=== PATIENT | female | born 1945 | race Caucasian/White ===

== ENCOUNTER → 2017-05-30 13:00 | Outpatient (CLI) | payer MEDICARE, SELFPAY ==
--- NOTE | 2017-05-30 13:03 | RAD_ITS ---
STUDY: X-RAY - RIGHT SHOULDER REASON FOR EXAM: Female, 71 years old. Postop check TECHNIQUE: 3 view(s) of the shoulder. COMPARISON: 01/17/2017. FINDINGS: Stable appearance of a right shoulder arthroplasty. No dislocation. No complication. No evidence for loosening. RAD/Shoulder min 2 Views IMPRESSION: Continued satisfactory appearance of a right shoulder arthroplasty. Electronically Signed: Jordin Case MD at 0:01 EST , Service support ,
== END ==
PROVIDERS: Family Provider Internal Medicine; PCP Internal Medicine; Visit Provider Orthopaedic Surgery
DX: M25.511 Pain in right shoulder (principal); Z96.611 Presence of right artificial shoulder joint
CPT/HCPCS: 73030

== ENCOUNTER 2020-06-02 06:18 | Outpatient (RCR) | payer MEDICARE, SELFPAY ==
[2016-12-07 11:25] VITALS: BMI 32.3
== END 2020-06-02 23:59 ==
LOC: IMMUN 06:18
PROVIDERS: PCP Internal Medicine; Visit Provider Family Medicine
DX: Z23 Encounter for immunization (principal)
CPT/HCPCS: 0011A; 0012A

== ENCOUNTER → 2024-04-23 | Outpatient (CLI) | payer MEDICARE, SELFPAY ==
--- NOTE | 2024-04-23 07:30 | MRI_ITS ---
STUDY: MRI LEFT SHOULDER REASON FOR EXAM: Female, 78 years old. Surgical planning, eval rotator cuff. TECHNIQUE: Standardized fat and water weighted pulse sequences were obtained in all 3 orthogonal planes. COMPARISON: Left shoulder CT dated 04/23/2024. FINDINGS: There is supraspinatus, infraspinatus, and subscapularis tendinosis without a full-thickness tear. Normal teres minor tendon. Normal supraspinatus muscle. Normal infraspinatus muscle. Normal subscapularis muscle. There is an ovoid intramuscular lipoma in the teres minor muscle, overall measuring 1.5 cm AP, 4.0 cm transverse, and 1.6 cm craniocaudad. There is severe glenohumeral arthrosis with joint space narrowing, marginal osteophyte formation, remodeling of the articular surfaces, and high-grade chondromalacia. There is overall degeneration of the glenoid labrum with tearing of the posterior-inferior glenoid labrum (axial PD series 2 images 15-18). There is a large glenohumeral joint effusion. Intact humeral head and visualized proximal humerus. Intact biceps labral complex. Normal intracapsular long biceps tendon. Normal rotator interval. There is hypertrophic acromioclavicular arthrosis, with inferior osteophyte formation, with mild effacement of the supraspinatus myotendinous junction (coronal PD series 7 images 16-17). There is a Type I morphology (flat undersurface), with a neutral orientation. There is very trace subacromial-subdeltoid bursal fluid. Normal visualized coracohumeral and coracoacromial ligaments. Normal quadrilateral space. Normal axillary space. Normal deltoid muscle. Normal trapezius muscle. MRI/Upper Ext Joint Only(Routine) IMPRESSION: Supraspinatus, infraspinatus, and subscapularis tendinosis without a full-thickness rotator cuff tear. 1.5 x 4.0 x 1.6 cm intramuscular lipoma in the teres minor muscle. Severe glenohumeral arthrosis with large glenohumeral joint effusion. Overall degeneration of the glenoid labrum with tearing of the posterior-inferior glenoid labrum. Hypertrophic acromioclavicular arthrosis, with inferior osteophyte formation, with mild effacement of the supraspinatus myotendinous junction. Electronically Signed: Kolby Larois MD at 8:08 EST ,
--- NOTE | 2024-04-23 07:38 | CT_ITS ---
EXAM: CT LEFT UPPER EXTREMITY WITHOUT INTRAVENOUS CONTRAST, SHOULDER CLINICAL INDICATION: blueprint cuts for RTSA surgical planning, left shoulder TECHNIQUE: Helically acquired images were obtained of the left shoulder without intravenous contrast. 2-D reformats were performed by the technologist. CTDIvol = ( 22.91 ) mGy, DLP = ( 575.17 ) mGycm This CT exam was performed using one or more of the following dose reduction techniques: automated exposure control, adjustment of the mA and/or kV according to patient size, and/or use of iterative reconstruction technique. COMPARISON: No relevant prior studies available. FINDINGS: BONES/JOINTS: Larger glenohumeral joint effusion. Moderate to severe osteoarthritic changes with joint enlarged humeral head osteophyte projecting inferiorly. Mild to moderate degenerative changes of the acromioclavicular joint. No acute or healing fracture or malalignment. No suspicious lytic or sclerotic lesions of bone. SOFT TISSUES: Unremarkable. No soft tissue swelling or gas. No radiopaque foreign body. No other soft tissue masses. LUNG APICES: Visualized lungs clear. CT/Extremity Upper without Contra IMPRESSION: Preoperative planning study for shoulder arthroplasty showing moderate to severe osteoarthritic changes of the glenohumeral joint. Electronically Signed: Pawan Flannery MD at 12:15 EST ,
== END | disposition home or self-care (01) ==
PROVIDERS: PCP Internal Medicine; Referring Provider Orthopaedic Surgery Sports Medicine; Visit Provider Orthopaedic Surgery Sports Medicine
DX: M19.012 Primary osteoarthritis, left shoulder (principal); M25.512 Pain in left shoulder
CPT/HCPCS: 73200; 73221

== ENCOUNTER 2024-08-21 12:30 | Outpatient (RCR) | payer MEDICARE, SELFPAY ==
--- NOTE | 2024-07-20 11:19 | HP.PTEVAL ---
Patient's Visit Information Visit Information Visit Information: MAYRA BROWN is a 78 year old F referred to Physical Therapy by Dr. Delano Duong MD with a diagnosis of PRIMARY OSTEOARTHRITIS ,LEFT SHOULDER. Date of Evaluation: 07/20/24 Physical Therapist: Bassam Madrigal PT, Cert MDT, OCS Visit Plan Frequency: 2x /Week Duration: 6 Weeks Plan: PATIENT PLANNING TO HAVE LEFT TSR Subjective Subjective: This 78 y/o female presents to physical with right OA. Patient has had left shoulder pain for~ [address] Duong did x-rays Degenerative arthrosis of the glenohumeral joint ,MRI no RTC tear. See DR Duong recommended TSR. But needs PT prior to surgery. Patient global and lateral deltoid. Described sharp pain ache. Aggravating factors OH above 90 degrees ,unable lifting and affects housework tasks and self hygiene. Alleviating factors rest over counter medication.Denies paresthesia/tingling. Pain affects sleeping. Patient pain affects QOL ,self hygiene. Patient goals TSR SOCIAL: Social VOCATION: retired Pain Left Shoulder: Pain Intensity (Out of 10): 5 Pain Intensity Range: 10 Objective Objective: POSTURE: mild forward posture PALPATION: tender AC AROM: shoulder flexion 85 degrees ,80 degrees with substitution ,IR L1 ,40 degrees PROM: shoulder flexion 145 degrees ,140 degrees abduction ,ER 40 degrees G-H MOBILITY: Mod tight MMT: ( peak force) infraspinatus 9.1 ,supraspinatus 7.8 ,subscapularis 10.2 Special Tests R Shoulder Drop Sign - IS Test: Positive R Shoulder Empty Can - SS: Positive R Shoulder Neer - Impingement: Positive R Shoulder Sharp Oswald - Impingement: Positive R Shoulder Shrug Sign - OA/Adhesive Capsulitis: Positive Balance/Special Test Scores Quick DASH Score: 65.9075 Goals Goal 1:: Patient to be Mod I HEP for shoulder Goal Time Frame: 4-6 Weeks Goal 2:: Patient to improve AROM shoulder flexion /abduction and ER by 5-10 degrees for ADLS and self hygiene Goal Time Frame: 4-6 Weeks Goal 3:: Patient to improve peak force RTC /deltoid by 5 # to improve function Goal Time Frame: 4-6 Weeks Goal 4:: Patient to improve quick oswestry score by 5 points to improve QOL Goal Time Frame: 4-6 Weeks Goal 5:: Patient to demonstrate 40% improvement with less pain and improved function Goal Time Frame: 4-6 Weeks Rehabilitation Potential Physical Therapy Diagnosis: This patient has DJD left shoulder with pain ,decrease ROM ,pain ,weakness and needs TSR thus will need PT prior to surgery thus benefit from skilled PT Rehabilitation Potential: Fair Anticipated Interventions Patient/Client Instruction: Educate patient on: Condition and Plan of Care For the Purpose of:: To decrease pain, To increase ROM, To improve muscle performance and motor function, To improve ability to perform ADL's, To increase tolerance to activity/condition/position, To improve ability of physical actions for home/community/work/leisure, To decrease soft tissue restriction, To increase flexibility/ROM and To improve tolerance to ADL's Therapeutic Exercise to Include: Strength training, Postural training, Flexibilty training, Passive ROM, Active ROM and Scapular Strength/Stabilization Comment: RTC For the Purpose of:: To decrease pain, To increase ROM, To improve nutrient delivery to tissue, To increase oxygenation perfusion, To increase tolerance to activity/condition/position, To improve ability of physical actions for home/community/work/leisure, To improve health of tissue, To decrease soft tissue restriction, To increase flexibility/ROM, To reduce risk of recurrence, To improve health and function and To improve tolerance to ADL's Manual Therapy Techniques to Include: Mobilization and Passive ROM Comment: G-H For the Purpose of:: To decrease pain, To increase ROM, To improve health of tissue and To decrease soft tissue restriction TENS: Yes IF ES: Yes Cryotherapy (ice pack, ice massage): Yes Thermo therapy (hot pack): Yes Ultrasound (thermal/non thermal): Yes For the Purpose of:: To decrease pain, To increase ROM, To improve nutrient delivery to tissue, To increase oxygenation perfusion, To improve health of tissue and To decrease soft tissue restriction Text: Thank you for the opportunity to evaluate your patient. For Medicare and Medicare HMO plans, please review the plan of care and approve it. It will need to be FAXED BACK to us at [phone] for Medicare purposes. For Medicare only, by signing this I certify the plan of care. Please let me know if there are questions or concerns regarding this plan of care. Physician Signature: Date:
--- NOTE | 2024-08-21 13:34 | HP.PTDCSUM ---
Discharge Summary D/C summary: It has been my pleasure to treat MAYRA BROWN referred by Dr. Delano Duong MD, with the diagnosis of PRIMARY OSTEOARTHRITIS ,LEFT SHOULDER for a total of 9 visit(s). Discharge Date: Please see the following information for a summary of their discharge status. Subjective Subjective: Pain is same plan to see hopes to shoulder replacement Need to schedule appointment Pain Left Shoulder: Pain Intensity (Out of 10): 5 Overall Improvement % Improvement: 10 Objective Objective/Function: POSTURE: mild forward posture PALPATION: tender AC AROM: shoulder flexion 90 degrees ,75 degrees with substitution ,IR L3 , ER 40 degrees PROM: shoulder flexion 145 degrees ,140 degrees abduction ,ER 40 degrees G-H ACCESSORY : Mod tight MMT: ( peak force) infraspinatus 8.5 ,supraspinatus 7.2 ,subscapularis 10.1 Goals Goal 1:: Patient to be Mod I HEP for shoulder Goal 2:: Patient to improve AROM shoulder flexion /abduction and ER by 5-10 degrees for ADLS and self hygiene Goal 3:: Patient to improve peak force RTC /deltoid by 5 # to improve function Goal 4:: Patient to improve quick oswestry score by 5 points to improve QOL Goal 5:: Patient to demonstrate 40% improvement with less pain and improved function Plan Plan: D/C to DR Discuss options with surgery for shoulder replacement D/C Information d/c sentence: If there are questions or concerns regarding this patient's physical therapy, please feel free to call me at [phone]. Thank you for the referral of this patient. Sincerely, Bassam Madrigal, PT, Cert MDT, OCS Balance/Gait/Functional tests Balance/Special Test Scores Quick DASH Score: 43.1800 Improvement % Improvement: 10
== END 2024-08-21 19:00 | disposition home or self-care (01) ==
LOC: PT 12:30
PROVIDERS: PCP Internal Medicine; Referring Provider Orthopaedic Surgery Sports Medicine; Visit Provider Orthopaedic Surgery Sports Medicine
DX: M19.012 Primary osteoarthritis, left shoulder (principal); M25.512 Pain in left shoulder
CPT/HCPCS: 97110; 97140; 97162; 97530

== ENCOUNTER 2024-12-19 05:34 | Day surgery (SDC) | payer MEDICARE, SELFPAY ==
--- NOTE | 2024-12-06 10:37 | EKG12_ITS ---
Test Reason : PREOP Blood Pressure : */* mmHG Vent. Rate : 69 BPM Atrial Rate : 69 BPM P-R Int : 152 ms QRS Dur : 64 ms QT Int : 382 ms P-R-T Axes : 35 72 78 degrees QTcB Int : 409 ms Normal sinus rhythm Low voltage QRS Borderline ECG Confirmed by Leonel Torres ([id number]), communications editor JOSE POP ([id number]) on 12/07/2024 6:47:03 AM Referred By: Delano Duong Confirmed By: Leonel Torres
[2024-12-06 11:17] LABS: Hematocrit 42.6 % (37-47); Hemoglobin 14.2 g/dL (12.0-15.0); Immature Granulocytes Count 0.030 X10^3/uL (0.0-0.0); Mean Corp Hgb Conc 33.3 g/dL (32-36); Mean Corpuscular Volume 91.6 fL (81-99); Mean Platelet Vol. 9.1 fl (6.2-12.0); NRBC Flagged by Analyzer 0 % (0-5); Platelet Count 432 K/mm3 (150-450); RBC Distribution Width CV 14.9 % (11.6-14.6); RBC Distribution Width SD 50.2 fl (35.1-43.9); Red Blood Count 4.65 M/mm3 (4.2-5.4); White Blood Count 8.2 K/mm3 (4.4-11.0)
[2024-12-06 11:25] LABS: Prothrombin Time (Protime)PT. 12.9 SECONDS (11.7-14.9)
[2024-12-06 11:26] LABS: Partial Thromboplast Time 28.0 Seconds (24.1-36.2)
[2024-12-06 11:47] LABS: Magnesium 2.5 mg/dL (1.5-2.2)
[2024-12-06 11:51] LABS: Anion Gap 11 (5-15); BUN 13 mg/dL (4-19); BUN/Creat Ratio 19.3 RATIO (10-20); Calcium,Total 9.9 mg/dL (7.6-11.0); Carbon Dioxide 24.1 mmol/L (21.0-32.0); Chloride 106 mmol/L (98-108); Glucose 94 mg/dL (70-99); Potassium 4.5 mmol/L (3.3-5.1)
--- NOTE | 2024-12-07 08:41 | PAT.ANE_ITS ---
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 When Was Last Pacemaker Check QUESTION #4 FULL TEXT: You/Your Family Experience fever (hyperthermia) with Anesthesia Last Oral Intake Last Oral intake: Last Oral Intake NPO since Meds taken in AM with sips of water? 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 Female Yes 12/05/24 10:05 HX of Motion Sickness No 12/05/24 10:05 HX of N/V After Surgery No 12/05/24 10:05 Non-Smoker Yes 12/05/24 10:05 Duration of Surgery greater Yes 12/05/24 10:05 than 60 minutes Number of Risk Factors 3 12/05/24 10:05 PONV Score Moderate Risk 12/05/24 10:05 Height & Weight Height & Weight: Anesthesia: Height & Weight Height 5 ft 1 in 09/05/24 09:04 Respiratory Assessment Respiratory Assessment - marine fuel dock attendant: Respiratory Tract Infection Hx - 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 Has anyone observed you stop No 12/05/24 10:05 breathing during sleep? STOP Results Negative 12/05/24 10:05 QUESTION #5 FULL TEXT : Do you snore loudly (louder than talking or can be heard through closed doors)? 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 Specify any problems Hx of Preganancy in last 3 No 12/05/24 10:05 Months Nurse Filling Out Transfusion DSCHRIBER 12/05/24 10:05 & Questions: Date: 12/05/24 12/05/24 10:05 Time: 10:07 12/05/24 10:05 Patient unable to answer at this time (ie. confused, unrespo /Reproduction History /Reproductive History - marine fuel dock attendant: /Reproductive Hx- marine fuel dock attendant Hx Now No 12/05/24 10:05 Gestational Age (in weeks): EDC: Hx Hx Para Hx Section SAB No 12/05/24 10:05 [facility] Medical History (Updated 12/05/24 @ 10:12 by Kristen Jeffries) Alcohol use Back pain Hx of fracture of wrist Wears glasses Anxiety Arthritis High cholesterol Gastric reflux Hypertension Non-smoker Primary osteoarthritis, left shoulder Left shoulder pain Home Medications ?Medication ?Instructions ?Recorded ?Last Taken ?Type biotin 10,000 mcg capsule 10,000 mcg PO DAILY 12/02/16 Unknown History calcium 600 mg (as 1 ea PO DAILY 12/02/16 Unkno wn History carbonate)-vitamin D3 5 mcg (200 unit) tablet amlodipine 5 mg tablet 5 mg PO QHS 05/06/23 Unknown History denosumab 60 mg/mL subcutaneous 60 mg subcut [id number] 05/06/23 Unknown History syringe (Prolia) folic acid 400 mcg tablet 800 mcg PO DAILY 05/06/23 Un known History rosuvastatin 10 mg tablet 10 mg PO [id number] 05/06/23 Unk nown History Allergy/AdvReac Type Severity Reaction Status Date / Time Sulfa (Sulfonamide Allergy Unknown Verified 12/05/24 10:01 Antibiotics) Surgical History (Updated 12/05/24 @ 10:12 by Kristen Jeffries) Hx of oral surgery Hx of left cataract extraction History of History of colonoscopy History of total replacement of right shoulder joint (~2016) Social History Smoking Status: Never smoker Audit: Pertinent Findings Pertinent Findings EKG Perinent findings: 12/06/2024. Normal sinus rhythm. Recommendation Anesthesia Recommendation Anesthesia recommendation: OPTIMIZED for anesthesia
[2024-12-19] VITALS (10 sets, daily range): BP systolic 113–156; BP diastolic 62–74; PULSE 64–80; RESP 16; TEMP 35.9–36.6; O2SAT 93–98; BMI 30.8
--- OUTSIDE RECORDS SUMMARY | 2024-12-19 05:36 | XMS RPT_ITS | CCD ---
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 Atkins Primary Care Provider Delano Duong MD Attending Provider Delano Duong MD Referring Provider Phil SLOAN, Dr. Atkins Referring Provider PHIL, WILBERT Vuong Primary Care Unavailable VILLARREAL, EDUARD Attending Unavailable VILLARREAL, EDUARD Primary Care Unavailable VILLARREAL, EDUARD Primary Care Unavailable VILLARREAL, WILBERT Vuong Referring Unavailable VILLARREAL, EDUARD Primary Care Unavailable VILLARREAL, EDUARD Referring Unavailable VILLARREAL, EDUARD Primary Care Unavailable VILLARREAL, EDUARD Referring Unavailable VILLARREAL, EDUARD Primary Care Unavailable JASMYN MCGUIRE Attending Unavailable PHIL, WILBERT Vuong Primary Care Unavailable Villarreal, Wilbert Primary Care Unavailable MollisonDelano Attending Unavailable DawitisonDelano Referring Unavailable Villarreal, Wilbert Primary Care Unavailable VillarrealWilbert Referring Unavailable Mollison, Delano Attending Unavailable Rhoda, Delano Referring Unavailable Molllito, Delano Attending Unavailable Phil, Wilbert Primary Care Unavailable Molllito, Delano Referring Unavailable Mollison, Delano Attending Unavailable Villarreal, Wilbert Primary Care Unavailable Villarreal, Wilbert Primary Care Unavailable Wesley Barrientos Attending Unavailabl e Delano Duong Referring Unavailable Villarreal, Wilbert Primary Care Unavailable Molllito, Delano Attending Unavailable VillarrealWilbert basilio Referring Unavailable Mollison, Delano Attending Unavailable Wilbert Villarreal Primary Care Unavailable Wilbert Villarreal Referring Unavailable Wilbert Villarreal Primary Care Unavailable Delano Duong Attending Unavailable Delano Duong Referring Unavailable Delano Duong Attending Unavailable Wilbert Villarreal Primary Care Unavailable Delano Duong Referring Unavailable Allergies Allergy Classification Reported Allergen(s) Allergy Type Date of Onset Reaction(s) Facility Alendronate (1 source) Alendronate Drug Allergy 9 GI Upset, Other: See Comments [facility] Work Phone: HMG-CoA Reductase Inhibitors (statins) (1 source) atorvastatin Drug Allergy 8 Diarrhea, GI Upset, Vomiting [facility] Sulfonamides (antibiotic) (1 source) Sulfonamides (Antibiotic) Drug Allergy 6 Unknown [facility] (20 sources) Alendronate; Translations: [ALENDRONATE SODIUM] Drug Allergy 9 GI Upset, Other: See Comments [facility] Work Phone: (20 sources) atorvastatin; Translations: [ATORVASTATIN CALCIUM] Drug Allergy 8 Diarrhea, GI Upset, Vomiting [facility] Work Phone: (20 sources) Sulfonamides (Antibiotic); Translations: [SULFA (SULFONAMIDE ANTIBIOTICS)] Propensity to adverse reactions 6 Unknown [facility] Work Phone: (3 sources) Sulfonamides (Antibiotic) Allergy to substance [address] [facility] (1 source) Sulfonamides (Antibiotic) Drug allergy (disorder) 5 [facility] Repository Medications Current Medications Medication Drug Class(es) Dates Sig (Normalized) Sig (Original) amLODIPine 5 mg oral tablet (20 sources) Dihydropyridine Calcium Channel Idgna Start: 07-27-2024 take 1 tablet by mouth once daily amLODIPine (NORVASC) 5 mg tablet Indications: Primary hypertension Take 1 tablet by mouth once daily. 90 tablet 3 07/27/2024 Active Start: 06-09-2021 End: 07-26-2023 take 1 tablet by mouth once daily amLODIPine (NORVASC) 5 mg tablet Indications: Primary hypertension Take 1 tablet by mouth once daily. 90 tablet 3 07/27/2024 Active Comment on above: Take 1 tablet by marilyn th once daily. biotin 10 mg oral capsule (20 sources) Start: 12-02-2016 take 1 capsule by mouth once daily Biotin 10,000 mcg cap Take 1 capsule by mouth once daily. 12/07/2019 Active Comment on above: Take 1 capsule by [facility] once daily. calcium carbonate 1500 mg / cholecalciferol 200 unt oral tablet (3 sources) Vitamin D Start: 12-02-2016 Calcium Carbonate-Vitami n D3 1 EACH tablet Active 1 NMA PO DAILY December 02, 2016 12:00am Start: 12-02-2016 Calcium Carbon ate-Vitamin D3 Active 1 EACH PO DAILY December 02, 2016 12:00am cholecalciferol 0.025 mg oral tablet (20 sources) Vitamin D Start: 01-28-2023 take 1 tablet by mouth once daily cholecalciferol (VITAMIN D3) 1,000 unit tab tablet Take 1 tablet by mouth once daily. 01/28/2023 Active Start: 12-02-2016 take 1 capsule by [facility] once daily Cholecalciferol (Vitamin D3) 5,000 UNIT capsule Active 5000 U PO DAILY December 02, 2016 12:00am Start: 12-22-2012 End: 01-28-2023 take 1 tablet by mouth once daily Cholecalciferol, Vitamin D3, 5,000 unit Tab Take 1 tablet by mouth once daily. 0 12/22/2012 01/28/2023 Discontinued Comment on above: Take 1 tablet by [facility] once daily. COMPOUNDED PRESCRIPTION (20 sources) take 1 capsule by mouth once COMPOUNDED PRESCRIPTION Take 1 capsule by mouth once daily. Suze Coleman Active take 1 capsule by mouth once COM POUNDED PRESCRIPTION Take 1 capsule by mouth once daily. Suze Coleman 0 Active Comment on above: Take 1 capsule by [facility] once daily. Suze Coleman 1 ml denosumab 60 mg/ml prefilled syringe (20 sources) RANK Ligand Inhibitor Start: 09-10-2024 End: 09-04-2025 60 mg, SUBCUTANEOUS, EVERY 6 MONTHS, 2 doses, First dose on 09/10/24 at 0000, Last dose on 03/09/25 at 0000, Allow To Come To Room Temperature Before Administration. REFRIGERATE Start: 09-10-2024 End: 09-04-2025 denosumab 60 mg injection (P ROLIA) Start: 09-08-2023 End: 03-12-2024 60 mg, SUBCUTANEOUS, EVERY 6 MONTHS, 2 doses, First dose on Tue09/08/23 at 0000, Last dose on Tue03/06/24 at 0000, Allow To Come To Room Temperature Before Administration. REFRIGERATE Start: 09-08-2023 End: 09-01-2024 denosumab 60 mg injection (P ROLIA) Start: 05-06-2023 End: 09-05-2024 denosumab (PROLIA) 60 mg/mL Inject 1 mL subcutaneously once every 6 months. 1 mL 1 09/05/2024 Active Start: 09-07-2022 End: 09-01-2023 denosumab 60 mg injection (P ROLIA) Start: 09-03-2022 End: 09-03-2022 inject 1 mL by subcutaneous injection once denosumab (PROLIA) 60 mg/mL Inject 1 mL subcutaneously one time only for 1 dose. 1 mL 0 09/03/2022 09/03/2022 Start: 06-23-2021 End: 06-23-2021 inject 1 mL by subcutaneous injection once denosumab (PROLIA) 60 mg/mL Inject 1 mL subcutaneously one time only for 1 dose. 1 mL 0 06/23/2021 06/23/2021 Active Start: 12-24-2020 End: 12-18-2021 denosumab 60 mg injection (P ROLIA) Comment on above: Inject 1 mL subcutan eously one time only for 1 dose. fluticasone propionate 0.05 mg/actuat metered dose nasal spray (20 sources) Corticosteroid Start: 3 End: take 2 spray(s) by mouth once daily fluticasone (FLONASE) 50 mcg/actuation nasal spray Indications: Rhinitis, non-allergic Use 2 Sprays in each nostril once daily. Rinse mouth after use. 1 Each 07/26/2023 Active Start: 07-26-2017 take 2 spray(s) by m outh once daily fluticasone (FLONASE) 50 mcg/actuation nasal spray Indications: Chronic rhinitis Use 2 Sprays in each nostril once daily. Rinse mouth after use. 1 Bottle 11 07/26/2017 Active Comment on above: Use 2 Sprays in each nostril once daily. Rinse mouth after use. folic acid 0.4 mg oral tablet (20 sources) Start: 05-06-2023 take 2 tablets by mouth once daily Folic Acid 400 mcg tablet Active 800 ug PO DAILY May 06, 2023 10:00am Start: 12-02-2016 End: 05-06-2023 take 1 tablet by mouth once daily Folic Acid 0.4 MG tablet Discontinued 0.4 mg PO DAILY December 02, 2016 12:00am May 06, 2023 10:02am Start: 05-10-2005 FOLIC ACID 400 MCG TAB Take one(1) tablet daily. 0 05/10/2005 Active Comment on above: Take one(1) tablet d aily. rosuvastatin calcium 10 mg oral tablet (20 sources) HMG-CoA Reductase Inhibitor Start: 3 End: take 1 tablet by mouth three times weekly rosuvastatin (CRESTOR) 10 mg tablet Indications: Hyperlipidemia, unspecified hyperlipidemia type Take 1 tablet by mouth three times a week. 36 tablet 3 07/20/2024 Active Start: 06-09-2021 End: 01-15-2022 take 1 tablet by mouth three times weekly rosuvastatin (CRESTOR) 10 mg tablet Take 1 tablet by mouth three times a week. 36 tablet 3 01/15/2022 Active Comment on above: Take 1 tablet by marilyn th three times a week. triamcinolone acetonide 1 mg/ml topical cream (20 sources) Corticosteroid Start: 12-07-2019 triamcinolone acetonide (KENALOG) 0.1 % cream Indications: Contact dermatitis, unspecified contact dermatitis type, unspecified trigger Apply to affected area. APPLY TO RASH BID NEEDED 15 g 1 12/07/2019 Active Comment on above: Apply to affected ar ea. APPLY TO RASH BID NEEDED Completed/Discontinued Medications Medication Drug Class(es) Dates Sig (Normalized) Sig (Original) acetaminophen 325 mg / HYDROcodone bitartrate 5 mg oral tablet (3 sources) Opioid Agonist Start: 12-08-2016 End: 05-30-2017 Hydrocodone-Acetami nophen 1 TABLET tablet Discontinued 1 - 2 {tbl} PO EVERY 4 HOURS NEEDED as needed for Pain 60 December 08, 2016 4:40pm May 30, 2017 2:29pm Start: 12-08-2016 End: 05-30-2017 take 1 tablet by mouth every four hours as needed Hydrocodone-Acetaminophen Discontinued 1 - 2 TABLET PO EVERY 4 HOURS NEEDED December 08, 2016 4:40pm May 30, 2017 2:29pm aspirin 81 mg delayed release oral tablet (3 sources) Platelet Aggregation Inhibitor, Nonsteroidal Anti-inflammatory Drug Start: 12-02-2016 End: 05-06-2023 take 1 tablet by mouth once daily Aspirin 81 MG tablet,delayed release (DR/EC) Discontinued 81 mg PO DAILY December 02, 2016 12:00am May 06, 2023 9:59am docusate sodium 100 mg oral capsule (3 sources) Start: 12-08-2016 End: 05-06-2023 take 1 capsule by mouth twice daily as needed for constipation Docusate Sodium 100 MG capsule Discontinued 100 mg PO TWICE DAILY NEEDED as needed for Constipation December 08, 2016 12:00am May 06, 2023 10:00am pravastatin sodium 40 mg oral tablet (3 sources) HMG-CoA Reductase Inhibitor Start: 12-02-2016 End: 05-06-2023 take 1 tablet by mouth at bedtime Pravastatin 40 MG tablet Discontinued 40 mg PO AT BEDTIME December 02, 2016 12:00am May 06, 2023 10:01am promethazine hydrochloride 25 mg oral tablet (3 sources) Phenothiazine Start: 12-08-2016 End: 05-06-2023 take 1 tablet by mouth every four hours as needed for nausea Promethazine 25 MG tablet Discontinued 25 mg PO EVERY 4 HOURS NEEDED as needed for Nausea December 08, 2016 12:00am May 06, 2023 10:01am Problems Active Problems Problem Classification Problem Date Documented Da te Episodic/Chronic Disorders of lipid metabolism (20 sources) Hyperlipidemia; Translations: [Hyperlipidemia, unspecified] Onset: 04-21-2007 02-25-2016 Chronic Essential hypertension (20 sources) Hypertensive disorder; Translations: [Essential (primary) hypertension] Onset: 02-16-2021 02-16-2021 Chronic Genitourinary symptoms and ill-defined conditions (2 sources) Increased frequency of urination; Translations: [Frequency of micturition] Episodic Osteoarthritis (20 sources) Arthropathy of joint of hand; Translations: [Primary osteoarthritis, unspecified hand] Onset: 01-14-2014 Resolved: 07-27-2018 01-14-2014 Chronic Osteoporosis (20 sources) Senile osteoporosis; Translations: [Age-related osteoporosis without current pathological fracture] Onset: 08-27-2018 08-27-2018 Chronic Other and unspecified benign neoplasm (1 source) Tubular adenoma of colon; Translations: [Benign neoplasm of colon, unspecified] 07-26-2023 Episodic Other non-traumatic joint disorders (1 source) Multiple joint pain; Translations: [Pain in unspecified joint] Episodic Other nutritional; endocrine; and metabolic disorders (20 sources) Body mass index 30+ - obesity; Translations: [Body mass index (BMI) 30.0-30.9, adult] Onset: 07-21-2015 07-21-2015 Chronic Other screening for suspected conditions (not mental disorders or infectious disease) (3 sources) Patient encounter status; Translations: [Encounter for screening mammogram for malignant neoplasm of breast] Episodic Other upper respiratory disease (20 sources) Non-allergic rhinitis; Translations: [Chronic rhinitis] Onset: 02-25-2016 02-25-2016 Chronic Otitis media and related conditions (1 source) Dysfunction of eustachian tube; Translations: [Unspecified Eustachian tube disorder, unspecified ear] 07-26-2023 Episodic Spondylosis; intervertebral disc disorders; other back problems (2 sources) Chronic back pain ; Translations: [Dorsalgia, unspecified] 01-24-2023 Episodic Past or Other Problems Problem Classification Problem Date Documented Da te Episodic/Chronic Allergic reactions (20 sources) Contact dermatitis; Translations: [Unspecified contact dermatitis, unspecified cause] Onset: 07-26-2017 07-26-2017 Episodic Nutritional deficiencies (14 sources) Vitamin D deficiency; Translations: [Vitamin D deficiency, unspecified] Onset: 11-08-2007 Resolved: 08-24-2016 08-24-2016 Chronic Other and unspecified benign neoplasm (13 sources) History of polyp of colon; Translations: [Personal history of colonic polyps] Onset: 05-30-2023 05-30-2023 Episodic Other nervous system disorders (14 sources) Carpal tunnel syndrome; Translations: [Carpal tunnel syndrome, unspecified upper limb] Onset: 05-27-2005 Resolved: 08-24-2016 08-24-2016 Chronic Other non-traumatic joint disorders (4 sources) Pain in left shoulder; Translations: [Left shoulder pain] Onset: 04-26-2024 05-06-2023 Episodic Other skin disorders (20 sources) Skin tag; Translations: [Other hypertrophic disorders of the skin] Onset: 02-25-2016 03-31-2021 Episodic Results Test Name Value Interpretation Reference Range Facility Fructosamineon 12-07-2024 FRUCTOSAMINE 223 umol/L Normal 0-285 [facility] Comment on above: Result Comment: Publ ished reference interval for apparently healthy subjects between age 20 and 60 is 205 - 285 umol/L and in a poorly controlled diabetic population is 228 - 563 umol/L with a mean of 396 umol/L. Performed at: [facility] [address] [id number] Chemistry Specialist: Jem Hanson PhD, Phone: [phone] Performed By: #### L 3400.0100, L300.4310, L501.9985, [id number], BTSPAT, M100.651, L100.0100, L500.2500, L300.3900 ####[facility] [address] [place], [address] MR/PATBeulah 12-07-2024 MR/PAT.[facility] Medical Records Department [address] [place] [address] PAT - Anesthesia 12/07/24 0841 MR#: [id number] Acct: [id number] Name: MULU BROWN Rep #: [id number] : 1945 79 From: Roly Lyon MD PCP: Dr. Wilbert Villarreal MD Status:PRE [facility] Y Race: C Location: 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 When Was Last Pacemaker Check QUESTION #4 FULL TEXT: You/Your Family Experience fever (hyperthermia) with Anesthesia Last Oral Intake Last Oral intake: Last Oral Intake NPO since Meds taken in AM with sips of water? Meds patient instructed to take am of surgery PONV PONV - press operator apprentice: PONV - press operator apprentice Female Yes 12/05/24 10:05 HX of Motion Sickness No 12/05/24 10:05 HX of N/V After Surgery No 12/05/24 10:05 Non-Smoker Yes 12/05/24 10:05 Duration of Surgery greater Yes 12/05/24 10:05 than 60 minutes Number of Risk Factors 3 12/05/24 10:05 PONV Score Moderate Risk 12/05/24 10:05 Height Weight Height Weight: Anesthesia: Height Weight Height 5 ft 1 in 09/05/24 09:04 Respiratory Assessment Respiratory Assessment - press operator apprentice: Respiratory Tract Infection Hx - press operator apprentice Hx Respiratory Tract Infection No 12/05/24 10:05 STOP Sleep Apnea STOP Sleep Apnea - press operator apprentice: STOP Sleep Apnea - press operator apprentice Hx Hypertension Yes: CONTROLLED WITH MED 12/05/24 10:05 Hx Sleep Apnea No 12/05/24 10:05 CPAP No 04/06/24 08:55 BIPAP Do you snore loudly (louder No 12/05/24 10:05 than talking or can be heard Do you often feel tired/ No 12/05/24 10:05 fatigued/ sleepy during daytime? Has anyone observed you stop No 12/05/24 10:05 breathing during sleep? STOP Results Negative 12/05/24 10:05 QUESTION #5 FULL TEXT : Do you snore loudly (louder than talking or can be heard through closed doors)? Tobacco Use History Tobacco Use History - press operator apprentice: Tobacco Use History - press operator apprentice Tobacco Use Smoking Status Never smoker 12/05/24 10:05 Hx Tobacco Use No 12/05/24 10:05 Years Smoking Packs Smoked per Day Smoking Cessation Date was within the last 15 years Hx Smoking Cessation Date Hx Smoking Cessation Counseling Hematologic Medial History Hematologic Hx - press operator apprentice: Hematologic Medical Hx - domestic cleaner Hx of Blood Transfusion No 12/05/24 10:05 Hx of Transfusion in last 3 No 12/05/24 10:05 Months Date of Last Transfusion (if within last 3 months) Ever experience any problems No 12/05/24 10:05 with transfusion(s)? Specify any problems Hx of Preganancy in last 3 No 12/05/24 10:05 Months Nurse Filling Out Transfusion DSCHRIBER 12/05/24 10:05 Questions: Date: 12/05/24 12/05/24 10:05 Time: 10:07 12/05/24 10:05 Patient unable to answer at this time (ie. confused, unrespo /Reproduction History /Reproductive History - press operator apprentice: /Reproductive Hx- press operator apprentice Hx Now No 12/05/24 10:05 Gestational Age (in weeks): EDC: Hx Hx Para Hx Section SAB No 12/05/24 10:05 [facility] Medical History (Updated 12/05/24 @ 10:12 by Kristen Jeffries) Alcohol use Back pain Hx of fracture of wrist Wears glasses Anxiety Arthritis High cholesterol Gastric reflux Hypertension Non-smoker Primary osteoarthritis, left shoulder Left shoulder pain Home Medications ???Medication ???Instructions ???Recorded ???Last Taken ???Type biotin 10,000 mcg capsule 10,000 mcg PO DAILY 12/02/16 Unkno wn History calcium 600 mg (as 1 ea PO DAILY 12/02/16 Unknown His tory carbonate)-vitamin D3 5 mcg (200 unit) tablet amlodipine 5 mg tablet 5 mg PO QHS 05/06/23 Unknown Histo ry denosumab 60 mg/mL subcutaneous 60 mg subcut [id number] 05/06/23 Unk nown History syringe (Prolia) folic acid 400 mcg tablet 800 mcg PO DAILY 05/06/23 Unknown History rosuvastatin 10 mg tablet 10 mg PO MOWEFR 05/06/23 Unknown H istory Allergy/AdvReac Type Severity Reac (more content not included)... Normal [facility] MRSA/SAID NASAL SCREENon MRSA+SAID SCRN Reason for Exam: Surgery MRSA MRSA Negative S. AUREUS S. aureus Negative Normal [facility] Comment on above: Performed By: #### L 3400.0100, L300.4310, L501.9985, [id number], BTSPAT, M100.651, L100.0100, L500.2500, L300.3900 ####[facility] [id number] [place], [address] 12 Lead EKGon 12-06-2024 12 Lead EKG [facility] Cardiovascular Services [address] [place] [address] 12 Lead EKG 12/06/24 1045 MR#: [id number] Acct: [id number] Name: MULU BROWN Rep #: [id number] : 1945 79 From: Leonel Torres MD Attending Dr: Dr. Delano Duong MD Status: VT E SDC Ordering Dr: Delano Duong MD Date: 12/06/24 Location: [facility] Sex: F C Admitted: Test Reason : PREOP Blood Pressure : */* mmHG Vent. Rate : 69 BPM Atrial Rate : 69 BPM P-R Int : 152 ms QRS Dur : 64 ms QT Int : 382 ms P-R-T Axes : 35 72 78 degrees QTcB Int : 409 ms Normal sinus rhythm Low voltage QRS Borderline ECG Confirmed by Leonel Torres ([id number]), magazine editor JOSE POP ([id number]) on 12/07/2024 6:47:03 AM Referred By: Delano Duong Confirmed By: Leonel Torres 12/07/24 0647 Date Leonel Torres MD CC: Dr. Delano Duong MD; Dr. Wilbert Villarreal MD Signed [facility] [id number] 12-06-[address] [facility] Comment on above: Order Comment: Surge ry Date: 12/19/24Reason for Laboratory Test [id number] TOTAL SHOULDER Performed By: #### L 3400.0100, L300.4310, L501.9985, [id number], BTSPAT, M100.651, L100.0100, L500.2500, L300.3900 ####[facility] [address] [place], [address] Basic Metabolic Profile (BMP )on 12-06-2024 BUN/CRE 19.3 RATIO Normal 10-20 [facility] Comment on above: Performed By: #### L 3400.0100, L300.4310, L501.9985, [id number], BTSPAT, M100.651, L100.0100, L500.2500, L300.3900 #### [facility] [address] [place], [address] Calcium [Mass/Vol] 9.9 mg/dL Normal 7.6-11.0 [facility] Comment on above: Performed By: #### L 3400.0100, L300.4310, L501.9985, [id number], BTSPAT, M100.651, L100.0100, L500.2500, L300.3900 #### [facility] [address] [place], [address] Chloride [Moles/Vol] 106 mmol/L Normal 98-108 [facility] Comment on above: Performed By: #### L 3400.0100, L300.4310, L501.9985, [id number], BTSPAT, M100.651, L100.0100, L500.2500, L300.3900 #### [facility] [address] [place], [address] CO2 [Moles/Vol] 24.1 mmol/L Normal 21.0-32.0 [facility] Comment on above: Performed By: #### L 3400.0100, L300.4310, L501.9985, [id number], BTSPAT, M100.651, L100.0100, L500.2500, L300.3900 #### [facility] [address] [place], [address] Creatinine [Mass/Vol] 0.65 mg/dL Low 0.70-1.20 [facility] Comment on above: Performed By: #### L 3400.0100, L300.4310, L501.9985, [id number], BTSPAT, M100.651, L100.0100, L500.2500, L300.3900 #### [facility] [address] [place], [address] GAP 11 Normal 5-15 [facility] Comment on above: Performed By: #### L 3400.0100, L300.4310, L501.9985, [id number], BTSPAT, M100.651, L100.0100, L500.2500, L300.3900 #### [facility] [address] [place], [address] GFR/1.73 sq M.predicted among non-blacks MDRD (S/P/Bld) [Vol rate/Area] 90 mL/min/{1.73_m2} Normal >60 [facility] Comment on above: Result Comment: mL/m in/1.73m2 CKD-EPI Creatinine Equation (2020) Performed By: #### L 3400.0100, L300.4310, L501.9985, [id number], BTSPAT, M100.651, L100.0100, L500.2500, L300.3900 #### [facility] [address] [place], [address] Glucose [Mass/Vol] 94 mg/dL Normal 70-99 [facility] Comment on above: Performed By: #### L 3400.0100, L300.4310, L501.9985, [id number], BTSPAT, M100.651, L100.0100, L500.2500, L300.3900 #### [facility] [address] [place], [address] Potassium [Moles/Vol] 4.5 mmol/L Normal 3.3-5.1 [facility] Comment on above: Performed By: #### L 3400.0100, L300.4310, L501.9985, [id number], BTSPAT, M100.651, L100.0100, L500.2500, L300.3900 #### [facility] [address] [place], [address] Sodium [Moles/Vol] 140 mmol/L Normal 133-145 [facility] Comment on above: Performed By: #### L 3400.0100, L300.4310, L501.9985, [id number], BTSPAT, M100.651, L100.0100, L500.2500, L300.3900 #### [facility] [address] [place], [address] Urea nitrogen [Mass/Vol] 13 mg/dL Normal 4-19 [facility] Comment on above: Performed By: #### L 3400.0100, L300.4310, L501.9985, [id number], BTSPAT, M100.651, L100.0100, L500.2500, L300.3900 #### [facility] [address] [place], [address] BUN Normal 4-19 [facility] Comment on above: Result Comment: DUPL ICATE Performed By: #### L 500.2500 #### [facility] [address] [place], [address] BUN/CRE Normal 10-20 [facility] Comment on above: Result Comment: DUPL ICATE Performed By: #### L 500.2500 #### [facility] [address] [place], [address] Calcium Normal 7.6-11.0 [facility] Comment on above: Result Comment: DUPL ICATE Performed By: #### L 500.2500 #### [facility] [address] [place], [address] CL Normal 98-108 [facility] Comment on above: Result Comment: DUPL ICATE Performed By: #### L 500.2500 #### [facility] [address] [place], [address] CO2 Normal 21.0-32.0 [facility] Comment on above: Result Comment: DUPL ICATE Performed By: #### L 500.2500 #### [facility] [address] [place], [address] CREAT,SERUM Normal 0.70-1.20 [facility] Comment on above: Result Comment: DUPL ICATE Performed By: #### L 500.2500 #### [facility] [address] [place], [address] eGFR Normal >60 [facility] Comment on above: Result Comment: DUPL ICATE Performed By: #### L 500.2500 #### [facility] [address] [place], [address] GAP Normal 5-15 [facility] Comment on above: Result Comment: DUPL ICATE Performed By: #### L 500.2500 #### [facility] [address] [place], [address] GLU Normal 70-99 [facility] Comment on above: Result Comment: DUPL ICATE Performed By: #### L 500.2500 #### [facility] [address] [place], [address] Potassium Normal 3.3-5.1 [facility] Comment on above: Result Comment: DUPL ICATE Performed By: #### L 500.2500 #### [facility] [address] [place], [address] Basic Metabolic Profile (BMP) Normal 133-145 [facility] Comment on above: Result Comment: DUPL ICATE Performed By: #### L 500.2500 #### [facility] [address] [place], [address] CBC W/Diff, Automatedon 09-0 4-2024 Absolute Lymph 1.97 X10 3/uL Normal 0.83-4.51 [facility] Comment on above: Performed By: #### L 3400.0100, L300.4310, L501.9985, [id number], BTSPAT, M100.651, L100.0100, L500.2500, L300.3900 #### [facility] [address] [place], [address] Absolute Neut 5.5 X10 3/uL Normal 2.0-7.7 [facility] Comment on above: Performed By: #### L 3400.0100, L300.4310, L501.9985, [id number], BTSPAT, M100.651, L100.0100, L500.2500, L300.3900 #### [facility] [address] [place], [address] Basophils/100 WBC (Bld) 0.6 % Normal 0-1 [facility] Comment on above: Performed By: #### L 3400.0100, L300.4310, L501.9985, [id number], BTSPAT, M100.651, L100.0100, L500.2500, L300.3900 #### [facility] [address] [place], [address] Eosinophils/100 WBC (Bld) 0.8 % Normal 0-5 [facility] Comment on above: Performed By: #### L 3400.0100, L300.4310, L501.9985, [id number], BTSPAT, M100.651, L100.0100, L500.2500, L300.3900 #### [facility] [address] [place], [address] Erythrocyte distribution width (RBC) [Ratio] 14.9 % High 11.6-14.6 [facility] Comment on above: Performed By: #### L 3400.0100, L300.4310, L501.9985, [id number], BTSPAT, M100.651, L100.0100, L500.2500, L300.3900 #### [facility] [address] [place], [address] Hematocrit (Bld) [Volume fraction] 42.6 % Normal 37-47 [facility] Comment on above: Performed By: #### L 3400.0100, L300.4310, L501.9985, [id number], BTSPAT, M100.651, L100.0100, L500.2500, L300.3900 #### [facility] [address] [place], [address] Hemoglobin (Bld) [Mass/Vol] 14.2 g/dL Normal 12.0-15.0 [facility] Comment on above: Performed By: #### L 3400.0100, L300.4310, L501.9985, [id number], BTSPAT, M100.651, L100.0100, L500.2500, L300.3900 #### [facility] [address] [place], [address] IG% 0.400 Normal 0.0-0.9 [facility] Comment on above: Result Comment: IG% - Immature Granulocytes (promyelocytes, myelocytes and metamyelocytes) > 1% indicates that a LEFT SHIFT is Present. Performed By: #### L 3400.0100, L300.4310, L501.9985, [id number], BTSPAT, M100.651, L100.0100, L500.2500, L300.3900 #### [facility] [address] [place], [address] Lymphocytes/100 WBC (Bld) 23.9 % Normal 19-41 [facility] Comment on above: Performed By: #### L 3400.0100, L300.4310, L501.9985, [id number], BTSPAT, M100.651, L100.0100, L500.2500, L300.3900 #### [facility] [address] [place] [place], [address] MCH (RBC) [Entitic mass] 30.5 pg Normal 27.0-32.0 [facility] Comment on above: Performed By: #### L 3400.0100, L300.4310, L501.9985, [id number], BTSPAT, M100.651, L100.0100, L500.2500, L300.3900 #### [facility] [address] [place], [address] MCHC (RBC) [Mass/Vol] 33.3 g/dL Normal 32-36 [facility] Comment on above: Performed By: #### L 3400.0100, L300.4310, L501.9985, [id number], BTSPAT, M100.651, L100.0100, L500.2500, L300.3900 #### [facility] [address] [place], [address] MCV (RBC) [Entitic vol] 91.6 fL Normal 81-99 [facility] Comment on above: Performed By: #### L 3400.0100, L300.4310, L501.9985, [id number], BTSPAT, M100.651, L100.0100, L500.2500, L300.3900 #### [facility] [address] [place], [address] Monocytes/100 WBC (Bld) 7.8 % Normal 0-10 [facility] Comment on above: Performed By: #### L 3400.0100, L300.4310, L501.9985, [id number], BTSPAT, M100.651, L100.0100, L500.2500, L300.3900 #### [facility] [address] [place], [address] Neutrophils/100 WBC (Bld) 66.5 % Normal 47-70 [facility] Comment on above: Performed By: #### L 3400.0100, L300.4310, L501.9985, [id number], BTSPAT, M100.651, L100.0100, L500.2500, L300.3900 #### [facility] [address] [place], [address] Nucleated RBC (Bld) [#/Vol] 0 10*3/uL Normal 0-5 [facility] Comment on above: Performed By: #### L 3400.0100, L300.4310, L501.9985, [id number], BTSPAT, M100.651, L100.0100, L500.2500, L300.3900 #### [facility] [address] [place], [address] Platelet mean volume (Bld) [Entitic vol] 9.1 fL Normal 6.2-12.0 [facility] Comment on above: Performed By: #### L 3400.0100, L300.4310, L501.9985, [id number], BTSPAT, M100.651, L100.0100, L500.2500, L300.3900 #### [facility] [address] [place], [address] Platelets (Bld) [#/Vol] 432 10*3/uL Normal 150-450 [facility] Comment on above: Performed By: #### L 3400.0100, L300.4310, L501.9985, [id number], BTSPAT, M100.651, L100.0100, L500.2500, L300.3900 #### [facility] [address] [place], [address] RBC (Bld) [#/Vol] 4.65 10*6/uL Normal 4.2-5.4 [facility] Comment on above: Performed By: #### L 3400.0100, L300.4310, L501.9985, [id number], BTSPAT, M100.651, L100.0100, L500.2500, L300.3900 #### [facility] [address] [place], [address] RDW SD 50.2 fl High 35.1-43.9 [facility] Comment on above: Performed By: #### L 3400.0100, L300.4310, L501.9985, [id number], BTSPAT, M100.651, L100.0100, L500.2500, L300.3900 #### [facility] [address] [place], [address] WBC (Bld) [#/Vol] 8.2 10*3/uL Normal 4.4-11.0 [facility] Comment on above: Performed By: #### L 3400.0100, L300.4310, L501.9985, [id number], BTSPAT, M100.651, L100.0100, L500.2500, L300.3900 #### [facility] [address] [place], [address] Absolute Neut Normal 2.0-7.7 [facility] Comment on above: Result Comment: DUPL ICATES Performed By: #### L 300.3900, L100.0100 ####[facility] [address] [facility] [place], [address] HCT Normal 37-47 [facility] Comment on above: Result Comment: DUPL ICATES Performed By: #### L 300.3900, L100.0100 ####[facility] [address] [place], [address] HGB Normal 12.0-15.0 [facility] Comment on above: Result Comment: DUPL ICATES Performed By: #### L 300.3900, L100.0100 ####[facility] [address] [place], [address] MCH Normal 27.0-32.0 [facility] Comment on above: Result Comment: DUPL ICATES Performed By: #### L 300.3900, L100.0100 ####[facility] [address] [place], [address] MCHC Normal 32-36 [facility] Comment on above: Result Comment: DUPL ICATES Performed By: #### L 300.3900, L100.0100 ####[facility] [address] [place], [address] MCV Normal 81-99 [facility] Comment on above: Result Comment: DUPL ICATES Performed By: #### L 300.3900, L100.0100 ####[facility] [address] [place], [address] NEUT% Normal 47-70 [facility] Comment on above: Result Comment: DUPL ICATES Performed By: #### L 300.3900, L100.0100 ####[facility] [address] [place], [address] PLT Normal 150-450 [facility] Comment on above: Result Comment: DUPL ICATES Performed By: #### L 300.3900, L100.0100 ####[facility] [address] [place], [address] RBC Normal 4.2-5.4 [facility] Comment on above: Result Comment: DUPL ICATES Performed By: #### L 300.3900, L100.0100 ####[facility] [address] [place], [address] RDW CV Normal 11.6-14.6 [facility] Comment on above: Result Comment: DUPL ICATES Performed By: #### L 300.3900, L100.0100 ####[facility] [address] [place], [address] RDW SD Normal 35.1-43.9 [facility] Comment on above: Result Comment: DUPL ICATES Performed By: #### L 300.3900, L100.0100 ####[facility] [address] [place], [address] WBC Normal 4.4-11.0 [facility] Comment on above: Result [facility]: [facility] Performed By: #### L 300.3900, L100.0100 ####[facility] [address] [place], [address] Hemoglobin A1con 12-06-2024 HbA1c (Bld) [Mass fraction] 6.0 % High <=5.6 [facility] Comment on above: Result Comment: Norm al < 5.7 % Prediabetic 5.7 - 6.4 % Diabetic >or= 6.5 % Please note range changes. Performed By: #### L 3400.0100, L300.4310, L501.9985, [id number], BTSPAT, M100.651, L100.0100, L500.2500, L300.3900 #### [facility] [address] [place], [address] Magnesiumon 12-06-2024 Magnesium [Mass/Vol] 2.5 mg/dL High 1.5-2.2 [facility] Comment on above: Performed By: #### L 501.5200 ####[facility] [address] [place], [address] Partial Thromboplast Timeon 12-06-2024 aPTT Coag (Bld) [Time] 28.0 s Normal 24.1-36.2 [facility] Comment on above: Performed By: #### L 3400.0100, L300.4310, L501.9985, CBGM3535, BTSPAT, M100.651, L100.0100, L500.2500, L300.3900 #### [facility] [address] [place], [address] Prothrombin Time w/INRon INR Coag (PPP) [Relative time] 1.0 {INR} Normal [facility] Comment on above: Performed By: #### L 3400.0100, L300.4310, L501.9985, [id number], BTSPAT, M100.651, L100.0100, L500.2500, L300.3900 #### [facility] [address] [place], [address] PT Coag (PPP) [Time] 12.9 s Normal 11.7-14.9 [facility] Comment on above: Performed By: #### L 3400.0100, L300.4310, L501.9985, [id number], BTSPAT, M100.651, L100.0100, L500.2500, L300.3900 #### [facility] [address] [place], [address] [facility] Comment on above: Result Comment: DUPL ICATES Performed By: #### L 300.3900, L100.0100 ####[facility] [address] [place], [address] PROTIME Normal 11.7-14.9 [facility] Comment on above: Result Comment: DUPL ICATES Performed By: #### L 300.3900, L100.0100 ####[facility] [address] [place], [address] Type AND Screen - PAT ONLYon 12-06-2024 Ab SCREEN GEL Positive Normal [facility] Comment on above: Order Comment: Surge ry Date: 12/19/24 Reason for Laboratory Test PREOP [id number] No N N S LEFT TOTAL SHOULDER Performed By: #### L 3400.0100, L300.4310, L501.9985, [id number], BTSPAT, M100.651, L100.0100, L500.2500, L300.3900 #### [facility] [address] [place], [address] CNNURSEon 10-04-2024 [facility] Nurse Visit (FAMPWS) MULU BROWN ([id number]) 1945 F Date Time Provider Department 10/04/24 10:00 AM [facility] During your visit today, we recorded the following information about you: JOYA KEYS 10/04/2024 10:16 AM Signed Patient presents for Prolia injection. Denies any problems at this time. Brought own medication. Patient instructed on any SE of medication, verbalized understanding and agreed to proceed with treatment. Tolerated injection well. Joya Keys LPN Referring Provider: WILBERT VILLARREAL [[id number]] Allergies As of Date: 10/04/2024 Noted Allergy Reaction FOSAMAX (ALENDRONATE SODIUM) 07/27/2018 8 - GI Upset 14 - Other: See Comments Comments: Dizziness. SULFA (SULFONAMIDE ANTIBIOTICS) 04/28/2005 16 - Unknown LIPITOR (ATORVASTATIN CALCIUM) 05/16/2007 6 - Diarrhea 8 - GI Upset 11 - Vomiting Comments: Tried to resume several times with side effects each time Date Reviewed: 07/27/2024 Reviewed by: Funmi Robertson LPN - Fully Assessed Reason for Visit: Imm/Inj [58] Primary Visit Diagnosis:Age-related osteoporosis without current pathological fracture [M81.0] Prescriptions as of 10/04/2024 - denosumab (PROLIA) 60 mg/mL Inject 1 mL subcutaneously once every 6 months. - amLODIPine (NORVASC) 5 mg tablet Take 1 tablet by mouth once daily. - rosuvastatin (CRESTOR) 10 mg tablet Take 1 tablet by mouth three times a week. - fluticasone (FLONASE) 50 mcg/actuation nasal spray Use 2 Sprays in each nostril once daily. Rinse mouth after use. - cholecalciferol (VITAMIN D3) 1,000 unit tab tablet Take 1 tablet by mouth once daily. - triamcinolone acetonide (KENALOG) 0.1 % cream Apply to affected area. APPLY TO RASH BID NEEDED - Biotin 10,000 mcg cap Take 1 capsule by mouth once daily. - COMPOUNDED PRESCRIPTION Take 1 capsule by mouth once daily. Q [facility]-Dr. Coleman - FOLIC ACID 400 MCG TAB Take one(1) tablet daily. Facility-Administered Medications as of 10/04/2024 - denosumab 60 mg injection (PROLIA) Problem List As Of Date 10/04/2024 Noted Resolved Carpal tunnel syndrome [G56.00] 05/27/2005 08/24/2016 Hyperlipidemia [E78.5] 04/21/2007 Vitamin D deficiency [E55.9] 11/08/2007 08/24/2016 [facility] arthritis [M19.049] 01/14/2014 Arthritis of shoulder region, right [M19.011] 01/14/2014 07/27/2018 Age-related osteoporosis without current pathol*08/27/2018 BMI 30.0-30.9,adult [Z68.30] 07/21/2015 Rhinitis, non-allergic [J31.0] 02/25/2016 Acrochordon [L91.8] 02/25/2016 Contact dermatitis [L25.9] 07/26/2017 Hypertension [I10] 02/16/2021 History of colonic polyps [Z86.0100] 05/30/2023 Osteoarthritis of left shoulder [M19.012] 05/06/2023 Encounter Status:Closed by JOYA KEYS on 10/04/24 [facility] BD DXA - AXIAL SKELETONon BD DXA - AXIAL SKELETON * * *Final Report* * * DATE OF EXAM: Sep 21 2024 10:27AM WRB 0804 - DXA - AXIAL SKELETON / PROCEDURE REASON: Age-related osteoporosis without current pathological fracture * * * * Physician Interpretation * * * * EXAMINATION: DXA BONE DENSITOMETRY BD DXA - AXIAL SKELETON, BD DXA TRABECLR BONE SCORE (TBS) PATIENT DEMOGRAPHICS: Age: 79 years, Gender: Female SCANNER INFORMATION: DXA Model: [employer] [place] C [address] Date Scanned: 09/21/2024 10:27 AM CLINICAL HISTORY: DIAGNOSTIC Age-related osteoporosis without current pathological fracture . RISK FACTORS FOR OSTEOPOROSIS AND ASSOCIATED FRACTURES REPORTED BY THIS PATIENT: Please refer to Bone Health Questionnaire in the EMR CURRENT THERAPY: Please refer to Bone Health Questionnaire in the EMR TECHNICAL LIMITATIONS: RESULTS: Lumbar spine (L1, L2, L3, L4): 1.163 g/cm2, T-score 1.1 , Z-score 3.6 Lumbar spine: 2022 : 1.049 g/cm2 Statistically significant increase Right Femoral Neck: 0.643 g/cm2, T-score -1.9 , Z-score 0.4 Right Femoral Neck: 2022 : 0.675 g/cm2 No statistically significant change Right Total Hip: 0.826 g/cm2, T-score -1.0 , Z-score 1.0 Right Total Hip: 2022 : 0.840 g/cm2 No statistically significant change Left Femoral Neck: 0.611 g/cm2, T-score -2.1 , Z-score 0.1 Left Femoral Neck: 2022 : 0.603 g/cm2 No statistically significant change Left Total Hip: 0.845 g/cm2, T-score -0.8 , Z-score 1.2 Left Total Hip: 2022 : 0.818 g/cm2 No statistically significant change CHANGE IS STATISTICALLY SIGNIFICANT IN THE SPINE OR HIP IF GREATER THAN OR EQUAL TO 0.04 g/cm2 VERTEBRAL FRACTURE ASSESSMENT Not performed. TRABECULAR BONE ASSESSMENT TBS score: 1.348 Bone micro-architecture: Normal (> 1.310) IMPRESSION: THE LOWEST T-SCORE IS -2.1 IN THE LEFT HIP 1) DIAGNOSIS (based on BMD alone): OSTEOPENIA Caution: Medical conditions other than osteoporosis may cause low bone density, such as osteomalacia or renal osteodystrophy. Clinical correlation is necessary. 2) FRACTURE RISK (Based on TBS adjusted FRAX): 10-year absolute fracture risk: - major osteoporotic fracture = 28 % - hip fracture = 17 % - A diagnosis of Osteoporosis, a 10 year probability of hip fracture greater than or equal to 3% or a 10 year probability of any major osteoporosis-related fracture greater than or equal to 20% should be considered for treatment. - DXA scanner generated FRAX calculations may slightly differ from online FRAX calculations due to differences in software versions. - All recommendations and calculations are to be considered as guidelines and should not replace sound clinical judgement - Caution: Fracture risk may be increased independent of BMD in patients with corticosteroid use, age greater than 65 years, or a history of prior fragility fracture. RECOMMENDATIONS: Follow-up in 2 years or as clinically indicated. Patients that are taking corticosteroids, are transplant recipients or have hyperparathyroidism should have annual follow-up. Follow-up scans should always be done on the same machine for accurate comparison. FOR MORE INFORMATION ABOUT DIAGNOSIS AND TREATMENT: [facility]oporosis and Metabolic Bone Disease:? www.ccf.org/arthritis/ osteo National Osteoporosis Foundation:? www.nof.org International Society of Clinical Densitometry www.iscd.org Car Seat Upholsterer: CHERISE Transcribe Date/Time: Sep 23 2024 7:55A Dictated by : MERCY JAIN MD This examination was interpreted and the report reviewed and electronically signed by: MERCY JAIN MD on Sep 23 2024 7:58AM EST [id number] -2.1 Normal [facility] BD DXA TRABECLR BONE SCORE ( TBS)on 09-21-2024 BD DXA TRABECLR BONE SCORE (TBS) * * *Final Report* * * DATE OF EXAM: Sep 21 2024 10:27AM [facility] 0801 - BD DXA TRABECLR BONE SCORE (TBS) / PROCEDURE REASON: Age-related osteoporosis without current pathological fracture * * * * Physician Interpretation * * * * EXAMINATION: DXA BONE DENSITOMETRY BD DXA - AXIAL SKELETON, BD DXA TRABECLR BONE SCORE (TBS) PATIENT DEMOGRAPHICS: Age: 79 years, Gender: Female SCANNER INFORMATION: DXA Model: [employer] [place] C [address] Date Scanned: 09/21/2024 10:27 AM CLINICAL HISTORY: DIAGNOSTIC Age-related osteoporosis without current pathological fracture . RISK FACTORS FOR OSTEOPOROSIS AND ASSOCIATED FRACTURES REPORTED BY THIS PATIENT: Please refer to Bone Health Questionnaire in the EMR CURRENT THERAPY: Please refer to Bone Health Questionnaire in the EMR TECHNICAL LIMITATIONS: RESULTS: Lumbar spine (L1, L2, L3, L4): 1.163 g/cm2, T-score 1.1 , Z-score 3.6 Lumbar spine: 2022 : 1.049 g/cm2 Statistically significant increase Right Femoral Neck: 0.643 g/cm2, T-score -1.9 , Z-score 0.4 Right Femoral Neck: 2022 : 0.675 g/cm2 No statistically significant change Right Total Hip: 0.826 g/cm2, T-score -1.0 , Z-score 1.0 Right Total Hip: 2022 : 0.840 g/cm2 No statistically significant change Left Femoral Neck: 0.611 g/cm2, T-score -2.1 , Z-score 0.1 Left Femoral Neck: 2022 : 0.603 g/cm2 No statistically significant change Left Total Hip: 0.845 g/cm2, T-score -0.8 , Z-score 1.2 Left Total Hip: 2022 : 0.818 g/cm2 No statistically significant change CHANGE IS STATISTICALLY SIGNIFICANT IN THE SPINE OR HIP IF GREATER THAN OR EQUAL TO 0.04 g/cm2 VERTEBRAL FRACTURE ASSESSMENT Not performed. TRABECULAR BONE ASSESSMENT TBS score: 1.348 Bone micro-architecture: Normal (> 1.310) IMPRESSION: THE LOWEST T-SCORE IS -2.1 IN THE LEFT HIP 1) DIAGNOSIS (based on BMD alone): OSTEOPENIA Caution: Medical conditions other than osteoporosis may cause low bone density, such as osteomalacia or renal osteodystrophy. Clinical correlation is necessary. 2) FRACTURE RISK (Based on TBS adjusted FRAX): 10-year absolute fracture risk: - major osteoporotic fracture = 28 % - hip fracture = 17 % - A diagnosis of Osteoporosis, a 10 year probability of hip fracture greater than or equal to 3% or a 10 year probability of any major osteoporosis-related fracture greater than or equal to 20% should be considered for treatment. - DXA scanner generated FRAX calculations may slightly differ from online FRAX calculations due to differences in software versions. - All recommendations and calculations are to be considered as guidelines and should not replace sound clinical judgement - Caution: Fracture risk may be increased independent of BMD in patients with corticosteroid use, age greater than 65 years, or a history of prior fragility fracture. RECOMMENDATIONS: Follow-up in 2 years or as clinically indicated. Patients that are taking corticosteroids, are transplant recipients or have hyperparathyroidism should have annual follow-up. Follow-up scans should always be done on the same machine for accurate comparison. FOR MORE INFORMATION ABOUT DIAGNOSIS AND TREATMENT: [facility] Osteoporosis and Metabolic Bone Disease:? www.ccf.org/arthritis/ osteo National Osteoporosis Foundation:? www.nof.org International Society of Clinical Densitometry www.iscd.org Car Seat Upholsterer: CHERISE Transcribe Date/Time: Sep 23 2024 7:55A Dictated by : MERCY JAIN MD This examination was interpreted and the report reviewed and electronically signed by: MERCY JAIN MD on Sep 23 2024 7:58AM EST [id number] -2.1 Normal [facility] 09-10-2024 CNPN Telephone (INTMWS) MULU BROWN ([id number]) 1945 F Date Time Provider Department 09/10/24 WILBERT VILLARREAL INTMWS During your visit today, we recorded the following information about you: JOYA KEYS 09/10/2024 10:00 AM Signed Phoned patient at this time d/t she had to cancel Prolia appt today; medication was going to cost her $700+ at the pharmacy. Recommended that she contact her medical insurance to see if they would cover if she received in office with us supplying medication. She verbalized understanding and will contact office back with update. *If able to get medication approve with [facility] providing, please help schedule patient at least 2 weeks out to ensure delivery of medication. BEATRIZ Simon Krista, LPN 09/10/2024 10:47 AM Signed Pt calls back and reports insurance advised that Dr. Pan would have to appy through [employer] for medical coverage. Pt asking if office would do this please. PRIOR AUTHORIZATION Medication for Prior Authorization: Prolia injection Other formulary meds available : unknown Insurance Company: [employer] number: [id number] Insurance Company phone number: pt did not have a phone number ([phone]- off of card in scanning) Patient insurance ID number: [id number] BEATRIZ Edmondson Janice, LPN 09/10/2024 11:51 AM Signed In review this has been approved 2022 and 2023. Bones density is due this year. To complete the bone density first before completing a PA would be helpful.pt notified she will get the bone density arranged first. Jacque Arambula LPN 09/19/2024 11:37 AM Signed Bone density is scheduled for 09/21/24 then will review about any PA for prolia. Jacque Arambula LPN 09/24/2024 2:29 PM Signed Called the provider number on pt's insurance card at [phone] spent 10 minutes with the automated system. Then need to call [phone]. Unable to get call to go through. Call was disconnected twice. Jacque Arambula LPN 09/24/2024 4:41 PM Signed Called again and this was reviewed over the phone as a buy and bill. Auth number is [id number] from 09/24/24 to 09/24/2025. Jacque Arambula LPN 10/03/2024 3:46 PM Signed Pt has been scheduled for nurse visit 10/04/24. Called pt to review that the prolia was rec'd from [facility] pharmacy and she reports she already picked this up from [facility]. This was previously approved with pharmacy benefits but pt said too costly. Reviewed with her she would like to see if her medical benefits would cover this. Allergies As of Date: 09/10/2024 Noted Allergy Reaction FOSAMAX (ALENDRONATE SODIUM) 07/27/2018 8 - GI Upset 14 - Other: See Comments Comments: Dizziness. SULFA (SULFONAMIDE ANTIBIOTICS) 04/28/2005 16 - Unknown LIPITOR (ATORVASTATIN CALCIUM) 05/16/2007 6 - Diarrhea 8 - GI Upset 11 - Vomiting Comments: Tried to resume several times with side effects each time Date Reviewed: 07/27/2024 Reviewed by: Funmi Robertson LPN - Fully Assessed Reason for Visit: Medication Problem [65] Insurance Authorization [[id number]] Prescriptions as of 10/03/2024 - denosumab (PROLIA) 60 mg/mL Inject 1 mL subcutaneously once every 6 months. - amLODIPine (NORVASC) 5 mg tablet Take 1 tablet by mouth once daily. - rosuvastatin (CRESTOR) 10 mg tablet Take 1 tablet by mouth three times a week. - fluticasone (FLONASE) 50 mcg/actuation nasal spray Use 2 Sprays in each nostril once daily. Rinse mouth after use. - cholecalciferol (VITAMIN D3) 1,000 unit tab tablet Take 1 tablet by mouth once daily. - triamcinolone acetonide (KENALOG) 0.1 % cream Apply to affected area. APPLY TO RASH BID NEEDED - Biotin 10,000 mcg cap Take 1 capsule by mouth once daily. - COMPOUNDED PRESCRIPTION Take 1 capsule by mouth once daily. Q [facility]-Dr. Coleman - FOLIC ACID 400 MCG TAB Take one(1) tablet daily. Facility-Administered Medications as of 10/03/2024 - denosumab 60 mg injection (PROLIA) Problem List As Of Date 09/10/2024 Noted Resolved Carpal tunnel syndrome [G56.00] 05/27/2005 08/24/2016 Hyperlipidemia [E78.5] 04/21/2007 Vitamin D deficiency [E55.9] 11/08/2007 08/24/2016 [facility] [place] [M19.049] 01/14/2014 Arthritis of shoulder region, right [M19.011] 01/14/2014 07/27/2018 Age-related osteoporosis without current pathol*08/27/2018 BMI 30.0-30.9,adult [Z68.30] 07/21/2015 Rhinitis, non-allergic [J31.0] 02/25/2016 Acrochordon [L91.8] 02/25/2016 Contact dermatitis [L25.9] 07/26/2017 Hypertension [I10] 02/16/2021 History of colonic polyps [Z86.0100] 05/30/2023 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 Delano johnson MD Age/Sex: 79/F Location: [facility] Status: Signed Intake Vital Signs 04/09/24 09:10 09/05/24 09:04 Height 5 ft 1 in 5 ft 1 in Weight: 165 lb BMI 31.1 Intake Visit Reasons: LEFT SHOULDER Chief Complaint: Physical therapy follow up Accompanied by: Self Is patient in pain?: Yes Pain scale (1-10): 4 Allergies Sulfa (Sulfonamide Antibiotics) Allergy (Verified 09/05/24 09:08) Unknown Medications ???Medication ???Instructions ???Recorded ???Confirmed ???Type biotin 10,000 mcg capsule 10,000 mcg PO DAILY 12/02/1609/05 History calcium 600 mg (as 1 ea PO DAILY 12/02/16 09/05/24 Hi story carbonate)-vitamin D3 5 mcg (200 unit) tablet cholecalciferol (vitamin D3) 125 5,000 unit PO DAILY 12/02/1609/05 History mcg (5,000 unit) capsule amlodipine 5 mg tablet 5 mg PO QHS 05/06/23 09/05/24 Hist ory denosumab 60 mg/mL subcutaneous 60 mg subcut [id number] 05/06/2307/27 History syringe (Prolia) folic acid 400 mcg tablet 800 mcg PO DAILY 05/06/23 09/05/24 History rosuvastatin 10 mg tablet 10 mg PO MOWEFR 05/06/23 09/05/24 History Have you fallen in the past year?: No PFSH Medical History Wears glasses Anxiety Osteoarthritis Arthritis High cholesterol Gastric reflux Hypertension Non-smoker Primary osteoarthritis, left shoulder Left shoulder pain Surgical History History of colonoscopy History of total replacement of right shoulder joint ( 2017) Social History Smoking Status: Never smoker HPI LEFT SHOULDER Details: This documentation accurately reflects the service provided and the decisions made by me, Dr. Delano Duong MD 09/05/24 0840. Part of today???s visit was documented by [ ], acting as scribe. MULU BROWN is a 79 year old F here today for FU L shoulder OA. Did PT. still painful difficulty left quite a bit of crepitus with range of motion. Patient is quite healthy and active. Supplemental Info [facility] Imaging Services [address] [address] Extremity Upper without Contra MR#: [id number] Acct: [id number] Name: MULU BROWN Rep #: [id number] : 1945 F 78 From: Pawan Flannery MD PCP: Dr. Wilbert Villarreal MD Status: REG CLI Study: Extremity Upper without Contra Date of Exam: 04/23/24 Exam# [id number] Ordering Dr: Delano Duong MD [id number] EXAM: CT LEFT UPPER EXTREMITY WITHOUT INTRAVENOUS CONTRAST, SHOULDER CLINICAL INDICATION: blueprint cuts for RTSA surgical planning, left shoulder TECHNIQUE: Helically acquired images were obtained of the left shoulder without intravenous contrast. 2-D reformats were performed by the technologist. CTDIvol = ( 22.91 ) mGy, DLP = ( 575.17 ) mGycm This CT exam was performed using one or more of the following dose reduction techniques: automated exposure control, adjustment of the mA and/or kV according to patient size, and/or use of iterative reconstruction technique. COMPARISON: No relevant prior studies available. FINDINGS: BONES/JOINTS: Larger glenohumeral joint effusion. Moderate to severe osteoarthritic changes with joint enlarged humeral head osteophyte projecting inferiorly. Mild to moderate degenerative changes of the acromioclavicular joint. No acute or healing fracture or malalignment. No suspicious lytic or sclerotic lesions of bone. SOFT TISSUES: Unremarkable. No soft tissue swelling or gas. No radiopaque foreign body. No other soft tissue masses. LUNG APICES: Visualized lungs clear. CT/Extremity Upper without Contra IMPRESSION: Preoperative planning study for shoulder arthroplasty showing moderate to severe osteoarthritic changes of the glenohumeral joint. Electronically Signed: Pawan Flannery MD at 12:15 EST , Coding Level of Care Code Off vis,est,level 4 Diagnoses Primary osteoarthritis, left shoulder M19.012 Left shoulder pain M25.512 Assessment and Plan Assessment and Plan (1) Primary osteoarthritis, left shoulder: Status: Acute Plan: MULU BROWN is a 8 (more content not included)... [facility] 08-21-2024 [facility] Telephone (INTMWS) MULU BROWN ([id number]) 1945 F Date Time Provider Department 08/21/24 WILBERT VILLARREAL INTWS During your visit today, we recorded the following information about you: JOYA KEYS 08/21/2024 12:01 PM Signed Patient scheduled for nurse visit 09/10/24 to receive Prolia injection. Please place order at this time. Joya Keys LPN Allergies As of Date: 08/21/2024 Noted Allergy Reaction FOSAMAX (ALENDRONATE SODIUM) 07/27/2018 8 - GI Upset 14 - Other: See Comments Comments: Dizziness. SULFA (SULFONAMIDE ANTIBIOTICS) 04/28/2005 16 - Unknown LIPITOR (ATORVASTATIN CALCIUM) 05/16/2007 6 - Diarrhea 8 - GI Upset 11 - Vomiting Comments: Tried to resume several times with side effects each time Date Reviewed: 07/27/2024 Reviewed by: Funmi Robertson LPN - Fully Assessed Reason for Visit: Orders [681] Primary Visit Diagnosis:Age-related osteoporosis without current pathological fracture [M81.0] Order(s):[START ON 09/10/2024] denosumab 60 mg injection (PROLIA)Disp: Rfl: Prescriptions as of 08/22/2024 - amLODIPine (NORVASC) 5 mg tablet Take 1 tablet by mouth once daily. - rosuvastatin (CRESTOR) 10 mg tablet Take 1 tablet by mouth three times a week. - denosumab (PROLIA) 60 mg/mL Inject 1 mL subcutaneously once every 6 months. - fluticasone (FLONASE) 50 mcg/actuation nasal spray Use 2 Sprays in each nostril once daily. Rinse mouth after use. - cholecalciferol (VITAMIN D3) 1,000 unit tab tablet Take 1 tablet by mouth once daily. - triamcinolone acetonide (KENALOG) 0.1 % cream Apply to affected area. APPLY TO RASH BID NEEDED - Biotin 10,000 mcg cap Take 1 capsule by mouth once daily. - COMPOUNDED PRESCRIPTION Take 1 capsule by mouth once daily. Q [facility]-Dr. Coleman - FOLIC ACID 400 MCG TAB Take one(1) tablet daily. Facility-Administered Medications as of 08/22/2024 - denosumab 60 mg injection (PROLIA) Problem List As Of Date 08/21/2024 Noted Resolved Carpal tunnel syndrome [G56.00] 05/27/2005 08/24/2016 Hyperlipidemia [E78.5] 04/21/2007 Vitamin D deficiency [E55.9] 11/08/2007 08/24/2016 [facility] arthritis [M19.049] 01/14/2014 Arthritis of shoulder region, right [M19.011] 01/14/2014 07/27/2018 Age-related osteoporosis without current pathol*08/27/2018 BMI 30.0-30.9,adult [Z68.30] 07/21/2015 Rhinitis, non-allergic [J31.0] 02/25/2016 Acrochordon [L91.8] 02/25/2016 Contact dermatitis [L25.9] 07/26/2017 Hypertension [I10] 02/16/2021 History of colonic polyps [Z86.0100] 05/30/2023 Osteoarthritis of left shoulder [M19.012] 05/06/2023 Prescriptions ordered this encounter Disp Refills Start End DENOSUMAB 60 MG/ML SUBCUTANEOUS SYRI* 09/10/2024 09/04/2025 Route: SUBCUTANEOUS Encounter Status:Closed by JOYA KEYS on 08/22/24 Normal [facility] PT D/C Summary (1)on 025 PT D/C Summary (1) [facility] [address] [place] [address] / REHABILITATION SERVICES DISCHARGE SUMMARY MR#: [id number] Acct: [id number] Name: MULU BROWN Rep #: [id number] : 1945 79 From: Mercy Madrigal PT, Cert. T, [facility] Referring Dr.: Dr. Delano Duong MD Status: R EG RCR Insurance: [facility] SELF PAY INSURANCE Discharge Summary D/C summary: It has been my pleasure to treat MULU BROWN referred by Dr. Delano Duong MD, with the diagnosis of PRIMARY OSTEOARTHRITIS ,LEFT SHOULDER for a total of 9 visit(s). Discharge Date: Please see the following information for a summary of their discharge status. Subjective Subjective: Pain is same plan to see DR hopes to shoulder replacement Need to schedule appointment Pain Left Shoulder: Pain Intensity (Out of 10): 5 Overall Improvement % Improvement: 10 Objective Objective/Function: POSTURE: mild forward posture PALPATION: tender AC AROM: shoulder flexion 90 degrees ,75 degrees with substitution ,IR L3 , ER 40 degrees PROM: shoulder flexion 145 degrees ,140 degrees abduction ,ER 40 degrees G-H ACCESSORY : Mod tight MMT: ( peak force) infraspinatus 8.5 ,supraspinatus 7.2 ,subscapularis 10.1 Goals Goal 1:: Patient to be Mod I HEP for shoulder Goal 2:: Patient to improve AROM shoulder flexion /abduction and ER by 5-10 degrees for ADLS and self hygiene Goal 3:: Patient to improve peak force RTC /deltoid by 5 # to improve function Goal 4:: Patient to improve quick oswestry score by 5 points to improve QOL Goal 5:: Patient to demonstrate 40% improvement with less pain and improved function Plan Plan: D/C to DR Discuss options with surgery for shoulder replacement D/C Information d/c sentence: If there are questions or concerns regarding this patient's physical therapy, please feel free to call me at [phone]. Thank you for the referral of this patient. Sincerely, Mercy Madrigal, PT, Cert MDT, OCS Balance/Gait/Functiona l tests Balance/Special Test Scores Quick DASH Score: 43.1800 Improvement % Improvement: 08/22/24 1344 CC: Dr. Delano Duong MD; Dr. Wilbert Villarreal MD ESAU Signed [facility] Office Visit (INTMWS ) MULU BROWN ([id number]) 1945 F Date Time Provider Department 07/27/24 10:20 AM WILBERT VILLARREAL INTMWS During your visit today, we recorded the following information about you: Temperature Pulse Respiration Blood pressure 97.5 degrees 79/minute 12/minute 130/72 Weight Height 75.7 kg 1.524 m Wilbert Villarreal MD 07/27/2024 1:11 PM Signed This note was created using Spotzerriter. Subjective Mulu Brown is a 78 year old female. She was doing well. Her hypertension and lipids were controlled. She had chronic left shoulder pain from osteoarthritis and adhesive capsulitis. She had been seeing Dr. Delano Duong and surgery was planned this year, after recommended physical therapy. Review of Systems Constitutional: Negative for fatigue and fever. Respiratory: Negative for cough and shortness of breath. Cardiovascular: Negative for chest pain, palpitations and leg swelling. Neurological: Negative for dizziness and headaches. ACTIVE PROBLEM LIST Hyperlipidemia [facility] Arthritis Age-Related Osteoporosis Without Current Pathological Fracture Bmi 30.0-30.9,Adult Rhinitis, Non-Allergic Acrochordon Contact Dermatitis Hypertension History of Colonic Polyps Social History Tobacco Use Smoking status: Never Smokeless tobacco: Never Vaping Use Vaping status: Never Used Substance Use Topics Alcohol use: Yes Alcohol/week: 3.0 standard drinks of alcohol Types: 3 Glasses of Wine (5oz) per week Comment: wine-occasional Drug use: No Current Outpatient Medications Medication Sig rosuvastatin (CRESTOR) 10 mg tablet Take 1 tablet by mouth three times a week. denosumab (PROLIA) 60 mg/mL Inject 1 mL subcutaneously once every 6 months. amLODIPine (NORVASC) 5 mg tablet Take 1 tablet by mouth once daily. fluticasone (FLONASE) 50 mcg/actuation nasal spray Use 2 Sprays in each nostril once daily. Rinse mouth after use. cholecalciferol (VITAMIN D3) 1,000 unit tab tablet Take 1 tablet by mouth once daily. triamcinolone acetonide (KENALOG) 0.1 % cream Apply to affected area. APPLY TO RASH BID NEEDED Biotin 10,000 mcg cap Take 1 capsule by mouth once daily. COMPOUNDED PRESCRIPTION Take 1 capsule by mouth once daily. Q [facility]-Dr. Coleman FOLIC ACID 400 MCG TAB Take one(1) tablet daily. No current facility-administered medications for this visit. Objective BP 136/74 (BP Site: Left Arm, BP Position: Sitting, BP Cuff Size: Large Adult) Pulse 79 Temp 36.4 ?C (97.5 ?F) (Temporal) Resp 12 Ht 152.4 cm (5') Wt 75.7 kg (166 lb 14.2 oz) SpO2 96% BMI 32.59 kg/m? Physical Exam Constitutional: General: She is not in acute distress. Cardiovascular: Rate and Rhythm: Normal rate and regular rhythm. Heart sounds: No murmur heard. No gallop. Pulmonary: Breath sounds: Normal breath sounds. Musculoskeletal: Left shoulder: Decreased range of motion. Right lower leg: No edema. Left lower leg: No edema. Neurological: Mental Status: She is alert. Assessment and Plan 1. Primary osteoarthritis of left shoulder - ICD9: 715.11, ICD10: M19.012 (primary diagnosis) Return for preoperative evaluation when indicated or requested. 2. Hyperlipidemia, unspecified hyperlipidemia type - ICD9: 272.4, ICD10: E78.5 - Controlled - Continue current medications - Counseled on healthy diet and regular exercise - COMPREHENSIVE METABOLIC PANEL - LIPID PANEL, FASTING 3. Age-related osteoporosis without current pathological fracture - ICD9: 733.01, ICD10: M81.0 - continue tx with PROLIA - set up for BMD AP Spine and Hip Unilateral - Reviewed the need for Calcium and Vitamin D supplements and weight bearing exercise as tolerated - DXA-AXIAL SKELETON - BD DXA TRABECULAR BONE SCORE (TBS) - Message sent to patient to schedule. 4. Primary hypertension - ICD9: 401.9, ICD10: I10 - Controlled - Continue current medications - COMPLETE BLOOD COUNT - AMLODIPINE 5 MG TABLET Wilbert Villarreal MD Allergies As of Date: 07/27/2024 Noted Allergy Reaction FOSAMAX (ALENDRONATE SODIUM) 07/27/2018 8 - GI Upset 14 - Other: See Comments Comments: Dizziness. SULFA (SULFONAMIDE ANTIBIOTICS) 04/28/2005 16 - Unknown LIPITOR (ATORVASTATIN CALCIUM) 05/16/2007 6 - Diarrhea 8 - GI Upset 11 - Vomiting Comments: Tried to resume several times with side effects each time Date Reviewed: 07/27/2024 Reviewed by: Funmi Robertson LPN - Fully Assessed Reason for Visit: F/U 6 months [1177] Primary Visit Diagnosis:Primary osteoarthritis of left shoulder [M19.012] Other Visit Diagnoses:Hyperlipidem ia, unspecified hyperlipidemia type [E78.5] Age-related osteoporosis without current pathological fracture [M81.0] Primary hypertension [I10] Order(s):COMPLETE BLOOD COUNT [SQCBC] Order #: [id number] FUTURE COMPREHENSIVE METABOLIC PANEL [SQCMP] Order #: [id number] FUTURE (more content not included)... Normal [facility] Inital Evaluation (1) - PTon 07-20-2024 Inital Evaluation (1) - PT [facility] [address] [place] [address]. [address] [place] [address] / REHABILITATION SERVICES INITIAL EVALUATION MR#: [id number] Acct: [id number] Name: MULU BROWN Rep #: [id number] : 1945 78 From: Mercy Madrigal PT, Cert. MD [place], OCS Referring Dr.: Dr. Delano Duong MD Status: R EG RCR Insurance: [facility] SELF PAY INSURANCE Patient's Visit Information Visit Information Visit Information: MULU BROWN is a 78 year old F referred to Physical Therapy by Dr. Delano Duong MD with a diagnosis of PRIMARY OSTEOARTHRITIS ,LEFT SHOULDER. Date of Evaluation: 07/20/24 Physical Therapist: Mercy Madrigal PT, Cert T, OCS Visit Plan Frequency: 2x /Week Duration: 6 Weeks Plan: PATIENT PLANNING TO HAVE LEFT TSR Subjective Subjective: This 78 y/o female presents to physical with right OA. Patient has had left shoulder pain for [address] Duong did x-rays Degenerative arthrosis of the glenohumeral joint ,MRI no RTC tear. See DR Duong recommended TSR. But needs PT prior to surgery. Patient global and lateral deltoid. Described sharp pain ache. Aggravating factors [place] above 90 degrees ,unable lifting and affects housework tasks and self hygiene. Alleviating factors rest over counter medication.Denies paresthesia/tingling. Pain affects sleeping. Patient pain affects QOL ,self hygiene. Patient goals TSR SOCIAL: Social VOCATION: retired Pain Left Shoulder: Pain Intensity (Out of 10): 5 Pain Intensity Range: 10 Objective Objective: POSTURE: mild forward posture PALPATION: tender AC AROM: shoulder flexion 85 degrees ,80 degrees with substitution ,IR L1 ,40 degrees PROM: shoulder flexion 145 degrees ,140 degrees abduction ,ER 40 degrees G-H MOBILITY: Mod tight MMT: ( peak force) infraspinatus 9.1 ,supraspinatus 7.8 ,subscapularis 10.2 Special Tests R Shoulder Drop Sign - IS Test: Positive R Shoulder Empty Can - SS: Positive R Shoulder Neer - Impingement: Positive R Shoulder Sharp Oswald - Impingement: Positive R Shoulder Shrug Sign - OA/Adhesive Capsulitis: Positive Balance/Special Test Scores Quick DASH Score: 65.9075 Goals Goal 1:: Patient to be Mod I HEP for shoulder Goal Time Frame: 4-6 Weeks Goal 2:: Patient to improve AROM shoulder flexion /abduction and ER by 5-10 degrees for ADLS and self hygiene Goal Time Frame: 4-6 Weeks Goal 3:: Patient to improve peak force RTC /deltoid by 5 # to improve function Goal Time Frame: 4-6 Weeks Goal 4:: Patient to improve quick oswestry score by 5 points to improve QOL Goal Time Frame: 4-6 Weeks Goal 5:: Patient to demonstrate 40% improvement with less pain and improved function Goal Time Frame: 4-6 Weeks Rehabilitation Potential Physical Therapy Diagnosis: This patient has DJD left shoulder with pain ,decrease ROM ,pain ,weakness and needs TSR thus will need PT prior to surgery thus benefit from skilled PT Rehabilitation Potential: Fair Anticipated Interventions Patient/Client Instruction: Educate patient on: Condition and Plan of Care For the Purpose of:: To decrease pain, To increase ROM, To improve muscle performance and motor function, To improve ability to perform ADL's, To increase tolerance to activity/condition/pos ition, To improve ability of physical actions for home/community/work/le isure, To decrease soft tissue restriction, To increase flexibility/ROM and To improve tolerance to ADL's Therapeutic Exercise to Include: Strength training, Postural training, Flexibilty training, Passive ROM, Active ROM and Scapular Strength/Stabilization Comment: RTC For the Purpose of:: To decrease pain, To increase ROM, To improve nutrient delivery to tissue, To increase oxygenation perfusion, To increase tolerance to activity/condition/pos ition, To improve ability of physical actions for home/community/work/le isure, To improve health of tissue, To decrease soft tissue restriction, To increase flexibility/ROM, To reduce risk of recurrence, To improve health and function and To improve tolerance to ADL's Manual Therapy Techniques to Include: Mobilization and Passive ROM Comment: G-H For the Purpose of:: To decrease pain, To increase ROM, To improve health of tissue and To decrease soft tissue restriction TENS: Yes IF ES: Yes Cryotherapy (ice pack, ice massage): Yes Thermo therapy (hot pack): Yes Ultrasound (thermal/non thermal): Yes For the Purpose of:: To decrease pain, To increase ROM, To improve nutrient delivery to tissue, To increase oxygenation perfusion, To improve health of tissue and To decrease soft tissue restriction Text: Thank you for the opportunity to evaluate your patient. For Medicare and Medicare HMO plans, please review the plan of care and approve it. It will need to be FAXED BACK to us at [phone] for Medicare purposes. For Medicare only, b (more content not included)... Normal [facility] Orthopedic Visit Reporton Orthopedic Visit Report [facility] [address] [place] [address] 5 [place] [address] OFFICE VISIT Date of Service: 04/26/24 MR#: [id number] Acct: [id number] Name: MULU BROWN Rep #: [id number] : 1945 Provider: Dr. Delano johnson MD Age/Sex: 78/F Location: [facility] Status: Signed Intake Vital Signs 04/09/24 09:10 Height 5 ft 1 in Weight: 169 lb 8 oz BMI 32.0 Intake Visit Reasons: LEFT SHOULDER Chief Complaint: MRI/CT review Allergies Sulfa (Sulfonamide Antibiotics) Allergy (Verified 04/26/24 13:42) Unknown Medications ???Medication ???Instructions ???Recorded ???Confirmed ???Type biotin 10,000 mcg capsule 10,000 mcg PO DAILY 12/02/16 04/26/24 History calcium 600 mg (as 1 ea PO DAILY 12/02/16 04/26/24 History carbonate)-vitamin D3 5 mcg (200 unit) tablet cholecalciferol (vitamin D3) 125 5,000 unit PO DAILY 12/02/16 04/26/24 History mcg (5,000 unit) capsule amlodipine 5 mg tablet mg PO 05/06/23 04/26/24 History denosumab 60 mg/mL subcutaneous 60 mg subcut [id number] 05/06/23 04/26/24 History syringe (Prolia) folic acid 400 mcg tablet 800 mcg PO DAILY 05/06/23 04/26/24 History rosuvastatin 10 mg tablet mg PO 05/06/23 04/26/24 History Have you fallen in the past year?: No PFSH Medical History Primary osteoarthritis, left shoulder Left shoulder pain Surgical History History of total replacement of right shoulder joint Social History Smoking Status: Never smoker HPI LEFT SHOULDER Details: This documentation accurately reflects the service provided and the decisions made by me, Dr. Delano Duong MD 04/26/24 1127. Part of today???s visit was documented by [ ], acting as scribe. MULU BROWN is a 78 year old F here today for follow-up left shoulder MRI and CT scan for surgical planning for arthroplasty of the shoulder. Supplemental Info [facility] [facility] [address] [place] [address] Extremity Upper without Contra MR#: [id number] Acct: [id number] Name: MULU BROWN Rep #: [id number] : 1945 F 78 From: Pawan Flannery MD PCP: Dr. Wilbert Villarreal MD Status: REG CLI Study: Extremity Upper without Contra Date of Exam: 04/23/24 Exam# [id number] Ordering Dr: Delano Duong MD [id number] EXAM: CT LEFT UPPER EXTREMITY WITHOUT INTRAVENOUS CONTRAST, SHOULDER CLINICAL INDICATION: blueprint cuts for RTSA surgical planning, left shoulder TECHNIQUE: Helically acquired images were obtained of the left shoulder without intravenous contrast. 2-D reformats were performed by the technologist. CTDIvol = ( 22.91 ) mGy, DLP = ( 575.17 ) mGycm This CT exam was performed using one or more of the following dose reduction techniques: automated exposure control, adjustment of the mA and/or kV according to patient size, and/or use of iterative reconstruction technique. COMPARISON: No relevant prior studies available. FINDINGS: BONES/JOINTS: Larger glenohumeral joint effusion. Moderate to severe osteoarthritic changes with joint enlarged humeral head osteophyte projecting inferiorly. Mild to moderate degenerative changes of the acromioclavicular joint. No acute or healing fracture or malalignment. No suspicious lytic or sclerotic lesions of bone. SOFT TISSUES: Unremarkable. No soft tissue swelling or gas. No radiopaque foreign body. No other soft tissue masses. LUNG APICES: Visualized lungs clear. CT/Extremity Upper without Contra IMPRESSION: Preoperative planning study for shoulder arthroplasty showing moderate to severe osteoarthritic changes of the glenohumeral joint. Electronically Signed: Pawan Flannery MD at 12:15 EST Reading Location ID and State: [facility] / [place] Tel , Service support , [facility] Imaging Services [address] [facility] [place], [place] [id number] Upper Ext Joint Only(Routine) MR#: [id number] Acct: [id number] Name: MULU BROWN Rep #: [id number] : 1945 From: Kolby Larios MD PCP: Dr. Wilbert Villarreal MD Status: REG CLI Study: Upper Ext Joint Only(Routine) Date of Exam: 04/23/24 Exam# [id number] Ordering Dr: Delano Duong MD [id number] STUDY: MRI LEFT SHOULDER REASON FOR EXAM: Fem (more content not included)... Normal [facility] Extremity Upper without Cont raon 04-23-2024 Extremity Upper without Contra [facility] Imaging Services [address] [place], [place] [address] Extremity Upper without Contra MR#: [id number] Acct: [id number] Name: MULU BROWN Rep #: [id number] : 1945 78 From: Pawan Flannery MD PCP: Dr. Wilbert Villarreal MD Status: REG CLI Study: Extremity Upper without Contra Date of Exam: 0 04/23/24 Exam# [id number] Ordering Dr: Delano Duong MD [id number] EXAM: CT LEFT UPPER EXTREMITY WITHOUT INTRAVENOUS CONTRAST, SHOULDER CLINICAL INDICATION: blueprint cuts for RTSA surgical planning, left shoulder TECHNIQUE: Helically acquired images were obtained of the left shoulder without intravenous contrast. 2-D reformats were performed by the technologist. CTDIvol = ( 22.91 ) mGy, DLP = ( 575.17 ) mGycm This CT exam was performed using one or more of the following dose reduction techniques: automated exposure control, adjustment of the mA and/or kV according to patient size, and/or use of iterative reconstruction technique. COMPARISON: No relevant prior studies available. FINDINGS: BONES/JOINTS: Larger glenohumeral joint effusion. Moderate to severe osteoarthritic changes with joint enlarged humeral head osteophyte projecting inferiorly. Mild to moderate degenerative changes of the acromioclavicular joint. No acute or healing fracture or malalignment. No suspicious lytic or sclerotic lesions of bone. SOFT TISSUES: Unremarkable. No soft tissue swelling or gas. No radiopaque foreign body. No other soft tissue masses. LUNG APICES: Visualized lungs clear. CT/Extremity Upper without Contra IMPRESSION: Preoperative planning study for shoulder arthroplasty showing moderate to severe osteoarthritic changes of the glenohumeral joint. Electronically Signed: Pawan Flannery MD at 12:15 EST Reading Location ID and State: [address] [place] [address] Tel , Service support , CC: Dr. Delano Duong MD; Dr. Wilbert Villarreal MD Car Seat Upholsterer: Signed Normal [facility] Upper Ext Joint Only(Routine )on 04-23-2024 Upper Ext Joint Only(Routine) [facility] Imaging Services [address] [place] [id number] Upper Ext Joint Only(Routine) MR#: [id number] Acct: [id number] Name: MULU BROWN Rep #: [id number] : 1945 F 78 From: Kolby Larios MD PCP: Dr. Wilbert Villarreal MD Status: REG CLI Study: Upper Ext Joint Only(Routine) Date of Exam: 0 04/23/24 Exam# [id number] Ordering Dr: Delano Duong MD [id number] STUDY: MRI LEFT SHOULDER REASON FOR EXAM: Female, 78 years old. Surgical planning, eval rotator cuff. TECHNIQUE: Standardized fat and water weighted pulse sequences were obtained in all 3 orthogonal planes. COMPARISON: Left shoulder CT dated 04/23/2024. FINDINGS: There is supraspinatus, infraspinatus, and subscapularis tendinosis without a full-thickness tear. Normal teres minor tendon. Normal supraspinatus muscle. Normal infraspinatus muscle. Normal subscapularis muscle. There is an ovoid intramuscular lipoma in the teres minor muscle, overall measuring 1.5 cm AP, 4.0 cm transverse, and 1.6 cm craniocaudad. There is severe glenohumeral arthrosis with joint space narrowing, marginal osteophyte formation, remodeling of the articular surfaces, and high-grade chondromalacia. There is overall degeneration of the glenoid labrum with tearing of the posterior-inferior glenoid labrum (axial PD series 2 images 15-18). There is a large glenohumeral joint effusion. Intact humeral head and visualized proximal humerus. Intact biceps labral complex. Normal intracapsular long biceps tendon. Normal rotator interval. There is hypertrophic acromioclavicular arthrosis, with inferior osteophyte formation, with mild effacement of the supraspinatus myotendinous junction (coronal PD series 7 images 16-17). There is a Type I morphology (flat undersurface), with a neutral orientation. There is very trace subacromial-subdeltoid bursal fluid. Normal visualized coracohumeral and coracoacromial ligaments. Normal quadrilateral space. Normal axillary space. Normal deltoid muscle. Normal trapezius muscle. MRI/Upper Ext Joint Only(Routine) IMPRESSION: Supraspinatus, infraspinatus, and subscapularis tendinosis without a full-thickness rotator cuff tear. 1.5 x 4.0 x 1.6 cm intramuscular lipoma in the teres minor muscle. Severe glenohumeral arthrosis with large glenohumeral joint effusion. Overall degeneration of the glenoid labrum with tearing of the posterior-inferior glenoid labrum. Hypertrophic acromioclavicular arthrosis, with inferior osteophyte formation, with mild effacement of the supraspinatus myotendinous junction. Electronically Signed: Kolby Larios MD at 8:08 EST , CC: Dr. Delano Duong MD; Dr. Wilbert Villarreal MD Car Seat Upholsterer: Signed Normal [facility] Orthopedic Visit Reporton Orthopedic Visit Report [facility] [address] [place], [place] [address] OFFICE VISIT Date of Service: 04/09/24 MR#: [id number] Acct: [id number] Name: MULU BROWN Rep #: [id number] : 1945 Provider: Dr. Delano johnson MD Age/Sex: 78/F Location: [facility] Status: Signed Intake Vital Signs 05/06/23 08:58 04/06/24 08:55 04/09/24 09:10 Height 5 ft 1 in 5 ft 1 in 5 ft 1 in Weight: 170 lb 8 oz 169 lb 8 oz BMI 32.2 32.0 Intake Visit Reasons: LEFT SHOULDER Chief Complaint: Left Shoulder - Talk about Surgery Accompanied by: Self Is patient in pain?: Yes Pain scale (1-10): 3 Allergies Sulfa (Sulfonamide Antibiotics) Allergy (Verified 04/09/24 09:10) Unknown Medications ???Medication ???Instructions ???Recorded ???Confirmed ???Type biotin 10,000 mcg capsule 10,000 mcg PO DAILY 12/02/16 04/09/24 History calcium 600 mg (as 1 ea PO DAILY 12/02/16 04/09/24 History carbonate)-vitamin D3 5 mcg (200 unit) tablet cholecalciferol (vitamin D3) 125 5,000 unit PO DAILY 12/02/16 04/09/24 History mcg (5,000 unit) capsule amlodipine 5 mg tablet mg PO 05/06/23 04/09/24 History denosumab 60 mg/mL subcutaneous 60 mg subcut [id number] 05/06/23 04/09/24 History syringe (Prolia) folic acid 400 mcg tablet 800 mcg PO DAILY 05/06/23 04/09/24 History rosuvastatin 10 mg tablet mg PO 05/06/23 04/09/24 History Have you fallen in the past year?: No PFSH Medical History Primary osteoarthritis, left shoulder Left shoulder pain Surgical History History of total replacement of right shoulder joint Social History Smoking Status: Never smoker HPI LEFT SHOULDER Details: This documentation accurately reflects the service provided and the decisions made by me, Dr. Delano Duong MD 04/09/24 0907. Part of today???s visit was documented by [ ], acting as scribe. MULU BROWN is a 78 year old F here today for follow-up left shoulder osteoarthritis and weakness. The patient is interested to proceed with a reverse total shoulder arthroplasty. Patient having quite a bit of difficulty reaching to the back of the head to do self-care and pain and grinding in the shoulder. Ortho Exam General General: Yes no acute distress Neurologic: Yes alert and Yes oriented x3 Psychologic: Yes reasonable and appropriate Left Shoulder Skin/Wound: Yes CDI, No ecchymosis, No erythema and No swelling Testing: No Hawkin's, No Neer's, No Speed's, No TTP Biceps, No TTP AC Joint, Yes empty can and Yes belly press normal SHOULDER: normal motor and sens to axillary N, MRU and AIN/PIN. Hand warm well perfused normal radial pulse active and passive FE 80, ER 15. strength fe 4+ Coding Level of Care Code Off vis,est,level 3 Diagnoses Primary osteoarthritis, left shoulder M19.012 Left shoulder pain M25.512 Assessment and Plan Assessment and Plan (1) Primary osteoarthritis, left shoulder: Status: Acute Plan: 78-year-old female with left shoulder advanced osteoarthritis and difficulty lifting the most reliable surgical solution here would be reverse total shoulder arthroplasty. I will go ahead and order a CT scan and an MRI for surgical planning and follow patient up after that signed the consent form. The patient understands no further questions or concerns. (2) Left shoulder pain: Status: Acute Clinical Quality Measures Falls Risk Screening/Assistive Devices Have you fallen in the past year?: No 04/09/24 0932 Date Delano Adams Signature: Date (if applicable) CC: Normal [facility] MULU BROWN ([id number]) 1945 F Date Time Provider Department 03/12/24 9:15 AM [facility] During your visit today, we recorded the following information about you: Joya Keys LPN 03/12/2024 9:28 AM Signed Patient presents for Prolia injection. Denies any problems at this time. Brought own medication. Patient instructed on any SE of medication, verbalized understanding and agreed to proceed with treatment. Tolerated injection well. Joya Keys LPN' Allergies As of Date: 03/12/2024 Noted Allergy Reaction FOSAMAX (ALENDRONATE SODIUM) 07/27/2018 8 - GI Upset 14 - Other: See Comments Comments: Dizziness. SULFA (SULFONAMIDE ANTIBIOTICS) 04/28/2005 16 - Unknown LIPITOR (ATORVASTATIN CALCIUM) 05/16/2007 6 - Diarrhea 8 - GI Upset 11 - Vomiting Comments: Tried to resume several times with side effects each time Date Reviewed: 01/31/2024 Reviewed by: Jasmyn Mcguire, CARDIOLOGY TECHNOLOGIST.HEPATOLOGIST - Fully Assessed Reason for Visit: Imm/Inj [58] Primary Visit Diagnosis:Age-related osteoporosis without current pathological fracture [M81.0] Prescriptions as of 03/12/2024 - denosumab (PROLIA) 60 mg/mL Inject 1 mL subcutaneously once every 6 months. - rosuvastatin (CRESTOR) 10 mg tablet Take 1 tablet by mouth three times a week. - amLODIPine (NORVASC) 5 mg tablet Take 1 tablet by mouth once daily. - fluticasone (FLONASE) 50 mcg/actuation nasal spray Use 2 Sprays in each nostril once daily. Rinse mouth after use. - cholecalciferol (VITAMIN D3) 1,000 unit tab tablet Take 1 tablet by mouth once daily. - triamcinolone acetonide (KENALOG) 0.1 % cream Apply to affected area. APPLY TO RASH BID NEEDED - Biotin 10,000 mcg cap Take 1 capsule by mouth once daily. - COMPOUNDED PRESCRIPTION Take 1 capsule by mouth once daily. Q [facility]-Dr. Coleman - FOLIC ACID 400 MCG TAB Take one(1) tablet daily. 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] 02/25/2016 Contact dermatitis [L25.9] 07/26/2017 Hypertension [I10] 02/16/2021 History of colonic polyps [Z86.0100] 05/30/2023 Encounter Status:Closed by JOYA KEYS on 03/12/24 [facility] CNOVon 01-31-2024 CNOV Office Visit (INTMWS ) MULU BROWN ([id number]) 1945 F Date Time Provider Department 01/31/24 9:00 AM JASMYN MCGUIRE INTMWS During your visit today, we recorded the following information about you: Pulse Respiration Blood pressure Weight 78/minute 14/minute 126/72 76.5 kg Height 1.54 m Jasmyn Mcguire, CARDIOLOGY TECHNOLOGIST.HEPATOLOGIST 01/31/2024 9:29 AM Signed Mulu Brown is a 78 year old female here for a Medicare wellness visit. Medicare Health Risk Assessment General Health Very good Exercise: Minutes/Day 50 min Exercise: Days/Week 3 days Alcohol: Daily Use 2-4 times a month Alcohol: Drinks/Day 1 or 2 Alcohol: 6 or more drinks Never Feel off balance No Concerns: Teeth/Dentures No Concerns: Sexual function No Troubled by feelings None of the above Frequency: Eating healthy diet Nearly every day ADLs requiring help None of the above Safety precautions in home/vehicle Yes (no grab bars) Smoke, vape, chews tobacco No Difficulty hearing No Difficulty seeing No Current Providers Specialists: I have reviewed specialist-related care of the patient in the medical record. Current care team: Patient Care Team: Wilbert Villarreal MD as PCP - General (Internal Medicine) Outside specialists seen: [facility] Medical/Family history review Reviewed and updated problem list, medical/surgical/famil y/social history, medications, and allergies. Opioid use review Opioid Medications (last 90 days) No data to display Anxiety/Depression screening Recommendation: no further intervention at this time Cognitive screening Mini Cog Score: 4 Cognitive screening reviewed and No further action needed (score 3-5). Functional Observation Was the patient's Timed Up AND Go test unsteady or >= 12 seconds? No Advance Care Planning Surrogate decision maker documented and/or advance directives scanned in chart Measurements BP 126/72 Pulse 78 Resp 14 Ht 154 cm (5' 0.63) Wt 76.5 kg (168 lb 10.4 oz) SpO2 97% BMI 32.26 kg/m? Vision Screening: Follows with optometry/ophthalmolog y Assessment/Plan Medicare annual wellness visit, subsequent (Z00.00) - Counseled on healthy diet and regular exercise - Fall avoidance information provided - Personalized prevention plan provided - Discussed need for and benefit of weight loss. BMI 32.26 kg/(m2) Additional Concerns The following concerns were also discussed with the patient: Skin tag on her neck, would like it removed. Taking medications as prescribed, denies side effects. Does not check her BP at home. Denies headaches, dizziness, lightheadedness, chest pain, SOB, palpitations, edema, fatigue. PHYSICAL EXAM BP 126/72 Pulse 78 Resp 14 Ht 154 cm (5' 0.63) Wt 76.5 kg (168 lb 10.4 oz) SpO2 97% BMI 32.26 kg/m? GENERAL: well appearing, alert, in no acute distress CARDIOVASCULAR: regular rate and rhythm. No murmur, rubs or gallops. PULMONARY: clear to auscultation, no wheezing, rhonchi, or crackles Left anterior neck- We discussed risks and benefits of cryotherapy as well as other options for skin tag treatment: agreed to proceed. 15 sec freeze once applied to small skin tag ASSESSMENT/PLAN: 1. Medicare annual wellness visit, subsequent - ICD9: V70.0, ICD10: Z00.00 (primary diagnosis) See medicare wellness plan 2. Acrochordon - ICD9: 701.9, ICD10: L91.8 Treated with cryotherapy. Patient tolerated well. Skin care discussed, see patient instructions 3. Primary hypertension - ICD9: 401.9, ICD10: I10 - Controlled - Continue current medications - Recommend home blood pressure monitoring, to bring results to next visit - Encouraged sodium restriction, DASH or Mediterranean diet 4. Hyperlipidemia, unspecified hyperlipidemia type - ICD9: 272.4, ICD10: E78.5 - Controlled - Continue current medications MAGGI Solomon Naz M, APRN.CNP 01/31/2024 9:21 AM Addendum Anticipate redness, with itching or burning pain initially. Tylenol (if you are able to take Tylenol) or cold compresses can help with any significant discomfort. Pain from cryotherapy can last up to 3 days. Complete healing is generally quick (7 to 14 days) with little or no scarring. Within hours after treatment, a blister may form. If the blister breaks, clean the area to prevent the spread of the virus. Avoid contact with the fluid, which may contain the wart virus. May apply antibiotic ointment and cover with bandage if needed The blister will dry up over the next days Multiple treatments may be needed. If lesion is persistent 3 to 4 weeks after treatment, please return to clinic for additional treatment Call office if you develop: Increased pain, swelling, redness, tenderness, or heat. Red streaks extending from the area. Discharge of pus. Fever. WHAT YOU CAN DO TO PREVENT FALLS Many falls can be prevented. By making so (more content not included)... Normal [facility] Comprehensive metabolic 2000 panelon 01-26-2024 Albumin [Mass/Vol] 4.3 g/dL Normal 3.9-4.9 [facility] Comment on above: Order Comment: Adalberto ktaz Type: BLOOD SPECIMEN Ordering Facility: [facility] Address: [address] [place] [address] Performed By: #### 2 4331-, #### [facility] CLIA [id number] [address] [place] [address] [place] ALP [Catalytic activity/Vol] 86 U/L Normal 34-123 [facility] Comment on above: Order Comment: Adalberto katz Type: BLOOD SPECIMEN Ordering Facility: [facility] Address: [address] [place] [address] Performed By: #### 2 4331-, #### [facility] CLIA [id number] [address] [place] [address] [place] ALT [Catalytic activity/Vol] 18 U/L Normal 7-38 [facility] Comment on above: Order Comment: Adalberto katz Type: BLOOD SPECIMEN Ordering Facility: [facility] Address: [address] [place] [address] Performed By: #### 2 4331-1, 93524-7 #### [facility] CLIA [id number] [address] [place] [address] [place] Anion gap [Moles/Vol] 13 mmol/L Normal 8-15 [facility] Comment on above: Order Comment: Speci men Type: BLOOD SPECIMEN Ordering Facility: [facility] Address: [address] [place] [address] Performed By: #### 2 4331-1, 98182-8 #### [facility] CLIA [id number] [address] [place] [address] [place] AST [Catalytic activity/Vol] 18 U/L Normal 13-35 [facility] Comment on above: Order Comment: Speci men Type: BLOOD SPECIMEN Ordering Facility: [facility] Address: [address] [place] [address] Performed By: #### 2 4331-1, 75324-5 #### [facility] CLIA [id number] [address] [place] [address] [place] Bilirubin [Mass/Vol] 0.5 mg/dL Normal 0.2-1.3 [facility] Comment on above: Order Comment: Speci men Type: BLOOD SPECIMEN Ordering Facility: [facility] Address: [address] [place] [address] Performed By: #### 2 4331-1, 25978-7 #### [facility] CLIA [id number] [address] [place] [address] [place] Calcium [Mass/Vol] 9.5 mg/dL Normal 8.5-10.2 [facility] Comment on above: Order Comment: Speci men Type: BLOOD SPECIMEN Ordering Facility: [facility] Address: [address] [place] [address] Performed By: #### 2 4331-1, 60834-4 #### [facility] CLIA [id number] [address] [place] [address] [place] Chloride [Moles/Vol] 105 mmol/L Normal 98-107 [facility] Comment on above: Order Comment: Speci men Type: BLOOD SPECIMEN Ordering Facility: [facility] Address: [address] [place] [address] Performed By: #### 2 4331-1, 13883-3 #### [facility] CLIA [id number] [address] [place] [address] [place] CO2 [Moles/Vol] 23 mmol/L Normal 22-30 [facility] Comment on above: Order Comment: Speci men Type: BLOOD SPECIMEN Ordering Facility: [facility] Address: [address] [place] [address] Performed By: #### 2 4331-1, 10021-9 #### [facility] CLIA [id number] [address] [place] [address] [place] Creatinine [Mass/Vol] 0.66 mg/dL Normal 0.58-0.96 [facility] Comment on above: Order Comment: Speci men Type: BLOOD SPECIMEN Ordering Facility: [facility] Address: [address] [place] [address] Performed By: #### 2 4331-1, 58483-8 #### [facility] CLIA [id number] [address] [place] [address] [place] Creatinine and Glomerular filtration rate.predicted panel (S/P/Bld) 90 mL/min/1.73m??? Normal >=60 [facility] Comment on above: Order Comment: Speci men Type: BLOOD SPECIMEN Ordering Facility: [facility] Address: [address] [place] [address] Result Comment: Maribeth mated Glomerular Filtration Rate (eGFR) is calculated using the 2020 CKD-EPI creatinine equation. This equation utilizes serum creatinine, sex, and age as parameters. The creatinine assay has traceable calibration to isotope dilution-mass spectrometry. Refer to KDIGO guidelines for clinical interpretation. In patients with unstable renal function, e.g. those with acute kidney injury, the eGFR may not accurately reflect actual GFR. Performed By: #### 2 4331-1, 97754-9 #### [facility] CLIA [id number] [address] [place] [address] [place] Glucose [Mass/Vol] 95 mg/dL Normal 74-99 [facility] Comment on above: Order Comment: Specchanel men Type: BLOOD SPECIMEN Ordering Facility: [facility] Address: [address] [place] [address] Result Comment: The [place] [employer] (ADA) provides guidance for cutoff values for fasting glucose and random glucose. The ADA defines fasting as no caloric intake for at least 8 hours. Fasting plasma glucose results between 100 to 125 mg/dL indicate increased risk for diabetes (prediabetes). Fasting plasma glucose results greater than or equal to 126 mg/dL meet the criteria for diagnosis of diabetes. In the absence of unequivocal hyperglycemia, results should be confirmed by repeat testing. In a patient with classic symptoms of hyperglycemia or hyperglycemic crisis, random plasma glucose results greater than or equal to 200 mg/dL meet the criteria for diagnosis of diabetes. Reference: Standards of Medical Care in Diabetes 2016, [place] [employer]. Diabetes Care. 2016.39(Suppl 1). Performed By: #### 2 4331-1, 21408-7 #### [facility] CLIA [id number] [address] [place] [address] [place] Potassium [Moles/Vol] 4.3 mmol/L Normal 3.7-5.1 [facility] Comment on above: Order Comment: Adalberto katz Type: BLOOD SPECIMEN Ordering Facility: [facility] Address: [address] [place] [address] Performed By: #### 2 4331-1, 98606-9 #### [facility] CLIA [id number] [address] [place] [address] [place] Protein [Mass/Vol] 7.4 g/dL Normal 6.3-8.0 [facility] Comment on above: Order Comment: Adalberto katz Type: BLOOD SPECIMEN Ordering Facility: [facility] Address: [address] [place] [address] Performed By: #### 2 4331-1, 19686-2 #### [facility] CLIA [id number] [address] [place] [address] [place] Sodium [Moles/Vol] 141 mmol/L Normal 136-144 [facility] Comment on above: Order Comment: Speci men Type: BLOOD SPECIMEN Ordering Facility: [facility] Address: [address] [place] [address] Performed By: #### 2 4331-1, 46757-7 #### [facility] CLIA [id number] [address] [place] [address] [place] Urea nitrogen [Mass/Vol] 13 mg/dL Normal 7-21 [facility] Comment on above: Order Comment: Speci men Type: BLOOD SPECIMEN Ordering Facility: [facility] Address: [address] [place] [address] Performed By: #### 2 4331-1, 05285-9 #### [facility] CLIA [id number] [address] [place] [address] [place] Lipid 1996 panelon 4 Cholesterol [Mass/Vol] 188 mg/dL Normal <200 [facility] Comment on above: Order Comment: Speci men Type: BLOOD SPECIMEN Ordering Facility: [facility] Address: [address] [place] [address] Result Comment: <200 mg/dL, Desirable 200-239 mg/dL, Borderline high >239 mg/dL, High Performed By: #### 2 4331-1, 99202-0 #### [facility] CLIA [id number] [address] [place] [address] [place] Cholesterol in HDL [Mass/Vol] 54 mg/dL Normal >39 [facility] Comment on above: Order Comment: Speci men Type: BLOOD SPECIMEN Ordering Facility: [facility] Address: [address] [place] [address] Result Comment: 40-5 9 mg/dL, Acceptable >59 mg/dL, High: Negative risk factor for coronary heart disease <40 mg/dL, Low: Positive risk factor for coronary heart disease Performed By: #### 2 4331-1, 17026-4 #### [facility] CLIA [id number] [address] [place] [address] [place] Cholesterol in LDL [Mass/Vol] 95 mg/dL Normal <100 [facility] Comment on above: Order Comment: Vikashi men Type: BLOOD SPECIMEN Ordering Facility: [facility] Address: [address] [place] [address] Result Comment: <100 mg/dL, Optimal 100-129 mg/dL, Near optimal/above optimal 130-159 mg/dL, Borderline high 160-189 mg/dL, High >189 mg/dL, Very high Secondary prevention optimal LDL Cholesterol levels are recommended to be < 70 mg/dL Performed By: #### 2 433-1, #### [facility] CLIA [id number] [address] [place] [address] [place] Cholesterol in LDL/Cholesterol in HDL [Mass ratio] 1.76 {ratio} Normal <2.54 [facility] Comment on above: Order Comment: Speci men Type: BLOOD SPECIMEN Ordering Facility: [facility] Address: [address] [place] [address] Result Comment: Edgar stallworth: 1. National Cholesterol Education Program ATP III Guideline At-A-Glance Quick Desk Reference: National Heart, Lung, and Blood [place]. National Institutes of Health. 2001: NIH Publication No. 01-3305. 2. An International Atherosclerosis Society position paper: global recommendations for the management of dyslipidemia: executive summary, Atherosclerosis. 2014: 232(2):410-413. Performed By: #### 2 433-1, #### [facility] CLIA [id number] [address] [place] [address] [place] Cholesterol in VLDL [Mass/Vol] 39 mg/dL High <30 [facility] Comment on above: Order Comment: Vikashi men Type: BLOOD SPECIMEN Ordering Facility: [facility] Address: [address] [place] [address] Performed By: #### 2 433-1, 65502-6 #### [facility] CLIA [id number] [address] [place], [place] [id number] [place] Cholesterol non HDL [Mass/Vol] 134 mg/dL High <130 [facility] Comment on above: Order Comment: Speci men Type: BLOOD SPECIMEN Ordering Facility: [facility] Address: [address] [place] [address] Result Comment: <130 mg/dL, Optimal 130-159 mg/dL, Near optimal/above optimal 160-189 mg/dL, Borderline high 190-219 mg/dL, High >219 mg/dL, Very high Secondary prevention optimal non HDL Cholesterol levels are recommended to be <100 mg/dL Performed By: #### 2 4331-1, 53315-0 #### [facility] CLIA [id number] [address] [place] [address] [place] Cholesterol.total/Ch olesterol in HDL [Mass ratio] 3.48 {ratio} Normal <5.10 [facility] Comment on above: Order Comment: Speci men Type: BLOOD SPECIMEN Ordering Facility: [facility] Address: [address] [place] [address] Performed By: #### 2 4331-1, 03919-9 #### [facility] CLIA [id number] [address] [place] [address] [place] FASTING TIME 13 hrs Normal [facility] Comment on above: Order Comment: Speci men Type: BLOOD SPECIMEN Ordering Facility: [facility] Address: [address] [place], [place] [id number] Performed By: #### 2 4331-1, 74434-1 #### [facility] CLIA [id number] [address] [place] [address] [place] Triglyceride [Mass/Vol] 196 mg/dL High <150 [facility] Comment on above: Order Comment: Speci men Type: BLOOD SPECIMEN Ordering Facility: [facility] Address: [address] [place] [address] Result Comment: <150 mg/dL, Normal 150-199 mg/dL, Borderline high 200-499 mg/dL, High >499 mg/dL, Very high Performed By: #### 2 4331-1, 64443-3 #### [facility] CLIA [id number] [address] [place] [address] [place] XR Thoracic spine AP and Lat eral and Swimmerson 01-26-2023 IMPRESSION: No acute osseous abnormality. Degenerative changes. Car Seat Upholsterer: PSCB Transcribe Date/Time: Jan 26 2023 12:34P Dictated by : RADHIKA BYERS DO This examination was interpreted and the report reviewed and electronically signed by: RADHIKA BYERS DO on Jan 26 2023 12:37PM [facility] DIVISION OF RADIOLOGY * * *Final Report* * * DATE OF EXAM: Jan 24 2023 1:52PM WOX [id number] - XR THORACIC 3V AP/LAT/SWIMMERS / PROCEDURE REASON: multiple diagnoses * * * * Physician Interpretation * * * * EXAMINATION: XR THORACIC 3V AP/LAT/SWIMMERS PATIENT/TECHNOLOGIST PROVIDED HISTORY: chronic back pain getting worse, pain is inferior to the right scapula no inj CLINICAL INFORMATION: 77 years old Female with Chronic right-sided back pain, unspecified back location TECHNIQUE: XR THORACIC 3V AP/LAT/SWIMMERS Laterality: NOT APPLICABLE Number of different views (projections): 3 COMPARISON: None. RESULT: Thoracic Spine: Counting reference: 12 paired ribs with vertebral body articulating with first set of ribs designated as T1. Post-op assessment: N/A Alignment: Alignment is satisfactory. Vertebral bodies: Vertebral body heights are maintained. Spine articulations: Small endplate osteophytes throughout the thoracic spine with mild endplate degenerative changes. DIVISION OF RADIOLOGY Provider, [facility] - 01/26/2023 * * *Final Report* * * DATE OF EXAM: Jan 24 2023 1:52PM WOX [id number] - XR THORACIC 3V AP/LAT/SWIMMERS / PROCEDURE REASON: multiple diagnoses * * * * Physician Interpretation * * * * EXAMINATION: XR THORACIC 3V AP/LAT/SWIMMERS PATIENT/TECHNOLOGIST PROVIDED HISTORY: chronic back pain getting worse, pain is inferior to the right scapula no inj CLINICAL INFORMATION: 77 years old Female with Chronic right-sided back pain, unspecified back location TECHNIQUE: XR THORACIC 3V AP/LAT/SWIMMERS Laterality: NOT APPLICABLE Number of different views (projections): 3 COMPARISON: None. RESULT: Thoracic Spine: Counting reference: 12 paired ribs with vertebral body articulating with first set of ribs designated as T1. Post-op assessment: N/A Alignment: Alignment is satisfactory. Vertebral bodies: Vertebral body heights are maintained. Spine articulations: Small endplate osteophytes throughout the thoracic spine with mild endplate degenerative changes. IMPRESSION IMPRESSION: No acute osseous abnormality. Degenerative changes. Car Seat Upholsterer: PSCB Transcribe Date/Time: Jan 26 2023 12:34P Dictated by : RADHIKA BYERS DO This examination was interpreted and the report reviewed and electronically signed by: RADHIKA BYERS DO on Jan 26 2023 12:37PM EST [facility] XR Thoracic spine AP and Lat eral and SwimmersOrdered By: [facility] Provider on 01-26-2023 [facility] XR Thoracic spine AP and Lat eral and Swimmerson 01-24-2023 Radiology Study observation (narrative) [facility] SVITLANA SCREENINGon 01-26-2022 [facility] UA DIP, URINE (POC)on 2021 BILIRUBIN UA (POCT) Negative Negative [facility] CLARITY UA (POCT) Clear [facility] COLOR UA (POCT) Yellow [facility] GLUCOSE UA (POCT) Negative Negative mg/dL [facility] HEMOGLOBIN/BLOOD UA (POCT) Trace-intact Abnormal Negative [facility] KETONE UA (POCT) Negative Negative mg/dL [facility] LEUKOCYTES UA (POCT) Trace Abnormal Negative [facility] NITRITE UA (POCT) Negative Negative [facility] PH UA (POCT) 5.0 4.5 - 8.0 [facility] Protein Ql (U) Negative Negative mg/dL [facility] SPECIFIC GRAVITY UA (POCT) 1.025 1.005 - 1.030 [facility] UROBILINOGEN UA (POCT) 0.2 E.U./dL Normal E.U./dL [facility] UA DIP, URINE (POC)on 2021 BILIRUBIN UA (POCT) Negative Negative [facility] CLARITY UA (POCT) Clear [facility] COLOR UA (POCT) Yellow [facility] GLUCOSE UA (POCT) Negative Negative mg/dL [facility] HEMOGLOBIN/BLOOD UA (POCT) Trace-intact Abnormal Negative [facility] KETONE UA (POCT) Negative Negative mg/dL [facility] LEUKOCYTES UA (POCT) Negative Negative [facility] NITRITE UA (POCT) Negative Negative [facility] PH UA (POCT) 6.0 4.5 - 8.0 [facility] Protein Ql (U) Negative Negative mg/dL [facility] SPECIFIC GRAVITY UA (POCT) 1.015 1.005 - 1.030 [facility] UROBILINOGEN UA (POCT) 0.2 E.U./dL Normal E.U./dL [facility] Vital Signs Date Time Vital Sign Value Performing Clinician Faci lity 09-05-2024 09:04-0400 Body height 154.[address] Wilbert Villarreal MD Work Phone: [facility] 09-05-2024 09:04-0400 Body mass index (BMI) [Ratio] 31.1 kg/m2 Dr. Wilbert Villarreal MD Work Phone: [facility] 09-05-2024 09:04-0400 Body weight 74.[address] Wilbert Villarreal MD Work Phone: [facility] 01-31-2024 09:21-0400 Diastolic blood pressure 72 mm[Hg] Jasmyn Mcguire APRN.HEPATOLOGIST Work Phone: [facility] 01-31-2024 09:21-0400 Systolic blood pressure 126 mm[Hg] Jasmyn BearShayla CARDIOLOGY TECHNOLOGIST.HEPATOLOGIST Work Phone: [facility] 01-31-2024 09:00-0400 Body height 154 cm Jasmyn Mcguire APRN.HEPATOLOGIST Work Phone: [facility] 01-31-2024 09:00-0400 Body mass index (BMI) [Ratio] 32.26 kg/m2 Jasmyn Mcguire APRN.HEPATOLOGIST Work Phone: [facility] 01-31-2024 09:00-0400 Body weight 76.5 kg Jasmyn Mcguire CARDIOLOGY TECHNOLOGIST.HEPATOLOGIST Work Phone: [facility] 01-31-2024 09:00-0400 Heart rate 78 /min Jasmyn Mcguire CARDIOLOGY TECHNOLOGIST.HEPATOLOGIST Work Phone: [facility] 01-31-2024 09:00-0400 Respiratory rate 14 /min Jasmyn Mcguire CARDIOLOGY TECHNOLOGIST.HEPATOLOGIST Work Phone: [facility] 01-31-2024 09:00-0400 SaO2% (BldA) [Mass fraction] 97 % Jasmyn Mcguire CARDIOLOGY TECHNOLOGIST.HEPATOLOGIST Work Phone: [facility] 07-26-2023 08:49-0400 Diastolic blood pressure 73 mm[Hg] Wilbert Villarreal MD Work Phone: [facility] 07-26-2023 08:49-0400 Heart rate 91 /min Wilbert Villarreal MD Work Phone: [facility] 07-26-2023 08:49-0400 Systolic blood pressure 116 mm[Hg] Wilbert Villarreal MD Work Phone: [facility] 07-26-2023 08:39-0400 Body mass index (BMI) [Ratio] 30.36 kg/m2 Wilbert Villarreal MD Work Phone: [facility] 07-26-2023 08:39-0400 Body temperature 98.49 [degF] Wilbert Villarreal MD Work Phone: [facility] 07-26-2023 08:39-0400 Body weight 75.3 kg Wilbert Villarreal MD Work Phone: [facility] 07-26-2023 08:39-0400 Respiratory rate 16 /min Wilbert Villarreal MD Work Phone: [facility] 01-24-2023 13:29-0400 Diastolic blood pressure 78 mm[Hg] Jasmyn Fonseca CARDIOLOGY TECHNOLOGIST.HEPATOLOGIST Work Phone: [facility] 01-24-2023 13:29-0400 Systolic blood pressure 134 mm[Hg] Jasmyn Older CARDIOLOGY TECHNOLOGIST.HEPATOLOGIST Work Phone: [facility] 01-24-2023 12:58-0400 Body height 154.3 cm Jasmyn Older CARDIOLOGY TECHNOLOGIST.HEPATOLOGIST Work Phone: [facility] 01-24-2023 12:58-0400 Body weight 75.75 kg Jasmyn Older CARDIOLOGY TECHNOLOGIST.HEPATOLOGIST Work Phone: [facility] 01-24-2023 12:58-0400 Heart rate 88 /min Jasmyn Older CARDIOLOGY TECHNOLOGIST.HEPATOLOGIST Work Phone: [facility] 01-24-2023 12:58-0400 Respiratory rate 12 /min Jasmyn Older CARDIOLOGY TECHNOLOGIST.HEPATOLOGIST Work Phone: [facility] 01-24-2023 12:58-0400 SaO2% (BldA) [Mass fraction] 96 % Jasmyn Older CARDIOLOGY TECHNOLOGIST.HEPATOLOGIST Work Phone: [facility] 01-15-2022 14:39-0400 Diastolic blood pressure 76 mm[Hg] Jasmyn Older CARDIOLOGY TECHNOLOGIST.HEPATOLOGIST Work Phone: [facility] 01-15-2022 14:39-0400 Systolic blood pressure 130 mm[Hg] Jasmyn Older CARDIOLOGY TECHNOLOGIST.HEPATOLOGIST Work Phone: [facility] 01-15-2022 14:25-0400 Body height 153.7 cm Jasmyn Older CARDIOLOGY TECHNOLOGIST.HEPATOLOGIST Work Phone: [facility] 01-15-2022 14:25-0400 Body weight 75.75 kg Jasmyn Older CARDIOLOGY TECHNOLOGIST.HEPATOLOGIST Work Phone: [facility] 01-15-2022 14:25-0400 Heart rate 82 /min Jasmyn Older CARDIOLOGY TECHNOLOGIST.HEPATOLOGIST Work Phone: [facility] 01-15-2022 14:25-0400 Respiratory rate 20 /min Jasmyn Older CARDIOLOGY TECHNOLOGIST.HEPATOLOGIST Work Phone: [facility] 11-27-2021 08:42-0400 Body weight 75.3 kg Jasmyn Older CARDIOLOGY TECHNOLOGIST.HEPATOLOGIST Work Phone: [facility] 11-27-2021 08:42-0400 Diastolic blood pressure 84 mm[Hg] Jasmyn Older CARDIOLOGY TECHNOLOGIST.HEPATOLOGIST Work Phone: [facility] 11-27-2021 08:42-0400 Heart rate 104 /min Jasmyn Older CARDIOLOGY TECHNOLOGIST.HEPATOLOGIST Work Phone: [facility] 11-27-2021 08:42-0400 Respiratory rate 16 /min Jasmyn Older CARDIOLOGY TECHNOLOGIST.HEPATOLOGIST Work Phone: [facility] 11-27-2021 08:42-0400 Systolic blood pressure 176 mm[Hg] Jasmyn Older CARDIOLOGY TECHNOLOGIST.HEPATOLOGIST Work Phone: [facility] 11-05-2021 08:59-0400 Body temperature 98.1 [degF] [facility] CARDIOLOGY TECHNOLOGIST.HEPATOLOGIST Work Phone: [facility] 11-05-2021 08:59-0400 Body weight 75.84 kg [facility] CARDIOLOGY TECHNOLOGIST.HEPATOLOGIST Work Phone: [facility] 11-05-2021 08:59-0400 Diastolic blood pressure 82 mm[Hg] [facility] CARDIOLOGY TECHNOLOGIST.HEPATOLOGIST Work Phone: [facility] 11-05-2021 08:59-0400 Heart rate 94 /min [facility] CARDIOLOGY TECHNOLOGIST.HEPATOLOGIST Work Phone: [facility] 11-05-2021 08:59-0400 Respiratory rate 20 /min [facility] CARDIOLOGY TECHNOLOGIST.HEPATOLOGIST Work Phone: [facility] 11-05-2021 08:59-0400 SaO2% (BldA) [Mass fraction] 96 % Jameel [facility] CARDIOLOGY TECHNOLOGIST.HEPATOLOGIST Work Phone: [facility] 11-05-2021 08:59-0400 Systolic blood pressure 150 mm[Hg] [facility] CARDIOLOGY TECHNOLOGIST.HEPATOLOGIST Work Phone: [facility] 09-15-2021 11:34-0400 Diastolic blood pressure 77 mm[Hg] Wilbert Villarreal MD Work Phone: [facility] 09-15-2021 11:34-0400 Heart rate 68 /min Wilbert Villarreal MD Work Phone: [facility] 09-15-2021 11:34-0400 Systolic blood pressure 126 mm[Hg] Wilbert Villarreal MD Work Phone: [facility] 09-15-2021 11:30-0400 Body temperature 97.59 [degF] Wilbert Villarreal MD Work Phone: [facility] 09-15-2021 11:30-0400 Body weight 74.84 kg Wilbert Villarreal MD Work Phone: [facility] 09-15-2021 11:30-0400 Respiratory rate 16 /min Wilbert Villarreal MD Work Phone: [facility] Encounters Encounter Date Encounter Type Care Provider Facility Start: 12-19-2024 ambulatory [facility] Facility :[facility] Start: 12-18-2024 Encounter for other preprocedural examination [facility] Start: 12-06-2024 ambulatory Wilbert Villarreal Facili ty:[facility] Start: 10-04-2024 End: 10-04-2024 Nursing evaluation of patient and report Mi Nurse Work Phone: [facility] [place] Comment on above: Age-related osteopor osis without current pathological fracture (Primary Dx) Start: 10-04-2024 End: 10-04-2024 ambulatory WILBERT VILLARREAL Facility:[facility] Start: 09-27-2024 End: 09-28-2024 Follow-up encounter Wilbert Villarreal MD Work Phone: [facility] [place] Start: 09-21-2024 ambulatory WILBERT VILLARREAL Faci lity:[facility] Start: 09-21-2024 End: 09-21-2024 Subsequent hospital visit by physician Bone Density [facility] Work Phone: Radiology Comment on above: Age-related osteopor osis without current pathological fracture [M81.0] Start: 09-10-2024 End: 10-03-2024 Telephone encounter Wilbert Villarreal MD Work Phone: [facility] [place] Comment on above: Medication Problem; Insurance Authorization Start: 09-10-2024 End: 09-10-2024 ambulatory WILBERT VILLARREAL Facility:[facility] Start: 09-05-2024 End: 09-05-[address] Delano Duong MD -[facility] Work Phone: Start: 09-05-2024 End: 09-05-2024 Refill Wilbert Villarreal MD Work Phone: [facility] [place] Comment on above: Refill Request Start: 08-21-2024 End: 08-21-2024 ambulatory Wilbert Villarreal Facility:[facility] Start: 08-21-2024 End: 08-21-[address] Delano Duong MD -Physical Therapy Work Phone: Start: 07-27-2024 End: 07-27-2024 ambulatory WILBERT VILLARREAL Facility:[facility] Start: 07-19-2024 End: 07-20-2024 Refill Wilbert Villarreal MD Work Phone: Family [facility] Comment on above: Refill Request Start: 07-03-2024 ambulatory Wilbert Villarreal Facili ty:[facility] Start: 04-27-2024 ambulatory [facility] Facility :[facility] Start: 04-26-2024 End: 04-26-2024 ambulatory Delano Mollison Facility:[facility] Start: 04-23-2024 End: 04-23-2024 [facility] Start: 04-09-2024 End: 04-09-2024 ambulatory Wilbert Villarreal Facility:[facility] Start: 03-12-2024 End: 03-12-2024 ambulatory WILBERT VILLARREAL Facility:[facility] Start: 03-12-2024 End: 03-12-2024 Nursing evaluation of patient and report Mi Nurse Work Phone: Family [facility] Comment on above: Age-related osteopor osis without current pathological fracture (Primary Dx) Start: 01-31-2024 End: 01-31-2024 ambulatory JASMYN Browne SHAYLA Facility:[facility] Start: 01-31-2024 End: 01-31-2024 Patient encounter procedure Jasmyn Browne Shayla CARDIOLOGY TECHNOLOGIST.HEPATOLOGIST Work Phone: [facility] Comment on above: Medicare annual well ness visit, subsequent (Primary Dx); Acrochordon; Primary hypertension; Hyperlipidemia, unspecified hyperlipidemia type Start: 01-26-2024 End: 01-26-2024 ambulatory WILBERT VILLARREAL Facility:[facility] Start: 09-08-2023 End: 09-08-2023 Nursing evaluation of patient and report Mi Nurse Work Phone: Family [facility] Comment on above: Age-related osteopor osis without current pathological fracture (Primary Dx) Start: 08-16-2023 Refill Wilbert basilio MD Work Phone: [facility] [place] Comment on above: Refill Request Insurance Authorizat ion Orders Start: 07-26-2023 End: 07-26-2023 Patient encounter procedure Wilbert Villarreal MD Work Phone: [facility] Comment on above: Rhinitis, non-allerg ic (Primary Dx); Hyperlipidemia, unspecified hyperlipidemia type; Primary hypertension; Age-related osteoporosis without current pathological fracture; Dysfunction of Eustachian tube, unspecified laterality; Tubular adenoma of colon Start: 03-09-2023 End: 03-09-2023 Nursing evaluation of patient and report Mi Nurse Work Phone: [facility] Comment on above: Age-related osteopor osis without current pathological fracture (Primary Dx) Start: 03-01-2023 Telephone encounter Wilbert clark MD Work Phone: [facility] Comment on above: Opened In Error Start: 01-24-2023 End: 01-24-2023 Subsequent hospital visit by physician Cora [facility] Work Phone: Radiology Comment on above: Chronic right-sided back pain, unspecified back location [M54.9, G89.29] Start: 01-24-2023 End: 01-24-2023 Patient encounter procedure Jasmyn Older CARDIOLOGY TECHNOLOGIST.HEPATOLOGIST Work Phone: [facility] Comment on above: Medicare annual well ness visit, subsequent (Primary Dx); Chronic right-sided back pain, unspecified back location; Colon cancer screening Start: 09-07-2022 End: 09-07-2022 Nursing evaluation of patient and report Mi Nurse Work Phone: [facility] [place] Comment on above: Age-related osteopor osis without current pathological fracture (Primary Dx) Start: 08-17-2022 ambulatory Jasmyn Older CARDIOLOGY TECHNOLOGIST .HEPATOLOGIST Work Phone: [facility] [place] Comment on above: bone density results Start: 08-17-2022 E-mail encounter mirtha m caregiver Jasmyn Older CARDIOLOGY TECHNOLOGIST.HEPATOLOGIST Work Phone: [facility] Start: 08-16-2022 ambulatory Jasmyn Older CARDIOLOGY TECHNOLOGIST .HEPATOLOGIST Work Phone: [facility] Comment on above: bone density test Start: 07-07-2022 Refill Wilbert basilio MD Work Phone: [facility] [place] Comment on above: Refill Request (OUT OF MEDICATION) Start: 01-26-2022 Documentation procedure Mammog [facility] Start: 01-26-2022 Letter encounter Mammography Coordinator [facility] Department Start: 01-26-2022 End: 01-26-2022 Subsequent hospital visit by physician Screen Mammo [facility] Mammogram Comment on above: Encounter for screen ing mammogram for malignant neoplasm of breast [Z12.31] Start: 01-15-2022 End: 01-15-2022 Patient encounter procedure Jasmyn Older CARDIOLOGY TECHNOLOGIST.HEPATOLOGIST Work Phone: [facility] Comment on above: Medicare annual well ness visit, subsequent (Primary Dx); Encounter for screening mammogram for malignant neoplasm of breast; Hyperlipidemia, unspecified hyperlipidemia type Start: 12-23-2021 End: 12-23-2021 ambulatory Mi Nurse Work Phone: [facility] Start: 11-27-2021 End: 11-27-2021 Patient encounter procedure Jasmyn Older CARDIOLOGY TECHNOLOGIST.HEPATOLOGIST Work Phone: [facility] Comment on above: Hematuria, unspecifi ed type (Primary Dx); Primary hypertension Start: 11-06-2021 Telephone encounter Darshan Smiley MD Work Phone: [facility] Comment on above: Results (Urine Cx ne gative) Start: 11-05-2021 End: 11-05-2021 Patient encounter procedure Jameel Thuy CARDIOLOGY TECHNOLOGIST.HEPATOLOGIST Work Phone: [facility] Comment on above: Urinary frequency (P rimary Dx) Start: 09-15-2021 End: 09-15-2021 Patient encounter procedure Wilbert Villarreal MD Work Phone: [facility] Comment on above: Age-related osteopor osis without current pathological fracture (Primary Dx); Primary hypertension; Hyperlipidemia, unspecified hyperlipidemia type; CMC arthritis; Multiple joint pain Start: 07-02-2021 ambulatory [facility] (Pss) [facility] Comment on above: Population Health Na vigation Outreach ([employer] Care Gaps) Start: 06-30-2021 End: 06-30-2021 Nursing evaluation of patient and report Mi Nurse Work Phone: [facility] Comment on above: Age-related osteopor osis without current pathological fracture (Primary Dx) Start: 06-23-2021 Refill Wilbert basilio MD Work Phone: [facility] Comment on above: Refill Request Procedures Date Procedure Procedure Detail Performing Clinician Start: 07-26-2023 Adult depression scr eening assessment [facility]r [facility] Work Phone: Start: 05-30-2023 Colonoscopy Wilbert Watts MD Work Phone: Start: 01-24-2023 Radex spine thoracic 3 views Jasmyn Mcguire CARDIOLOGY TECHNOLOGIST.HEPATOLOGIST Work Phone: Start: 01-26-2022 Screening mammograph y bi 2-view breast inc cad Jasmyn Older CARDIOLOGY TECHNOLOGIST.HEPATOLOGIST Work Phone: Start: 12-23-2021 INFLUENZA SEASONAL QUADRIVALENT HIGH DOSE AGE 65+ Jasmyn Older CARDIOLOGY TECHNOLOGIST.HEPATOLOGIST Work Phone: Start: 11-27-2021 Urnls dip stick/tabl et rgnt auto w/o microscopy Jasmynmeme Fonseca CARDIOLOGY TECHNOLOGIST.HEPATOLOGIST Work Phone: Start: 11-05-2021 Urnls dip stick/tabl et rgnt auto w/o microscopy Dasia Pinto CARDIOLOGY TECHNOLOGIST.HEPATOLOGIST Work Phone: Start: 01-21-2021 Mammography Wilbert Watts MD Work Phone: Start: 01-12-2021 Adult depression scr eening assessment Wilbert Villarreal MD Work Phone: Start: 12-13-2017 Colonoscopy Wilbert Watts MD Work Phone: Plan of Treatment Date Care Activity Detail Author Start: 05-30-2028 Screening for malign ant neoplasm of colon [facility] Start: 07-27-2027 Urine microalbumin profile [facility] Start: 01-25-2027 [facility] Start: 09-29-2026 LIPID SCREEN LIPID SCREEN [facility] Start: 09-21-2026 Screening for osteoporosis Bone Density Screening [facility] Start: 07-25-2026 [facility] Start: 04-17-2026 LIPID SCREEN LIPID SCREEN [facility] Start: 01-27-2026 [facility] Start: 07-27-2025 Annual PCP Team Audit Associate kamran Disease Visit Annual PCP Team Chronic Disease Visit [facility] Start: 07-26-2025 End: 07-26-2025 Patient encounter procedure 07/26/2025 10:20 AM EDT Office Visit [facility] [address] [place] [address] Wilbert Villarreal MD [address] [place] [id number] 6 month follow up [facility] Comment on above: 6 month follow up Start: 04-08-2025 End: 04-08-2025 Nursing evaluation of patient and report 04/08/2025 10:45 AM EST Nurse Visit [facility] [address] [place] [id number] Nurse, Ak [address] [place], [place] [address] eDbbie [facility] Comment on above: Prolia Start: 01-30-2025 Annual PCP Team Audit Associate kamran Disease Visit Annual PCP Team Chronic Disease Visit [facility] Start: 01-29-2025 End: 01-29-2025 Patient encounter procedure 01/29/2025 10:40 AM EDT Office Visit [facility] [address] [place] [address] Jasmyn Mcguire, CARDIOLOGY TECHNOLOGIST.HEPATOLOGIST [address] [place] [address] medicare wellness [facility] Comment on above: medicare wellness Start: 01-15-2025 DIABETES SCREEN DIABETES SCREEN [facility] Start: 01-15-2025 Diabetes Screening Diabetes Screenin g [facility] Start: 12-03-2024 Influenza vaccination Influenza Vacc ine (#1) [facility] Start: 10-04-2024 End: 10-04-2024 Nursing evaluation of patient and report 10/04/2024 10:00 AM EDT Nurse Visit [facility] [address] [place] [address] Nurse, Ak [address] [place], [place] [address] debbie [facility] Comment on above: prolia Start: 09-10-2024 End: 09-10-2024 Nursing evaluation of patient and report 09/10/2024 9:45 AM EDT Nurse Visit [facility] [address] [place] [address] Nurse, Ak [address] [place], [place] [id number] debbie [facility] Comment on above: prolia Start: 08-10-2024 Screening for osteoporosis Bone Density Screening [facility] Start: 07-25-2024 Annual PCP Team Audit Associate kamran Disease Visit Annual PCP Team Chronic Disease Visit [facility] Start: 07-25-2024 Anxiety Screening Anxiety Screening [facility] Start: 07-25-2024 Depression Screening Depression Scre ening [facility] Start: 07-24-2024 End: 07-24-2024 Patient encounter procedure 07/24/2024 9:00 AM EDT Office Visit [facility] [place] [address] [place] [address] Wilbert Villarreal MD [address] [place] [address] 6 month follow-up [facility] Comment on above: 6 month follow-up Start: 04-04-2024 Advance Directive Discussion Advance Directive Discussion [facility] Start: 04-04-2024 Medicare Advantage Annual Wellness Visit Medicare Advantage Annual Wellness Visit [facility] Start: 03-12-2024 End: 03-12-2024 Nursing evaluation of patient and report 03/12/2024 9:15 AM EST Nurse Visit [facility] [address] [place] [address] Nurse, Mi [address] [place] [address] [facility] Comment on above: [facility] Start: 01-31-2024 End: 01-31-2024 Patient encounter procedure 01/31/2024 9:00 AM EDT Office Visit [facility] [address] [place] [address] Jasmyn Mcguire, CARDIOLOGY TECHNOLOGIST.HEPATOLOGIST [address] [place] [address] Annual Wellness w/6 month follow-up [facility] Comment on above: Annual Wellness w/6 month follow-up Start: 01-25-2024 Annual PCP Team Audit Associate kamran Disease Visit Annual PCP Team Chronic Disease Visit [facility] Start: 01-18-2024 End: 04-18-2024 Comprehensive metabolic 2000 panel - Serum or Plasma COMPREHENSIVE METABOLIC PANEL Lab Routine Hyperlipidemia, unspecified hyperlipidemia type Expected: 01/18/2024, Expires: 04/18/2024 [facility] Comment on above: Expected: 01/18/2024 , Expires: 04/18/2024 Start: 01-18-2024 End: 04-18-2024 Lipid 1996 panel - Serum or Plasma LIPID PANEL BASIC Lab Routine Hyperlipidemia, unspecified hyperlipidemia type Expected: 01/18/2024, Expires: 04/18/2024 [facility] Comment on above: Expected: 01/18/2024 , Expires: 04/18/2024 Start: 01-09-2024 DIABETES SCREEN DIABETES SCREEN [facility] Start: 12-04-2023 Influenza vaccination Influenza Vacc ine (#1) [facility] Start: 09-08-2023 End: 09-08-2023 Nursing evaluation of patient and report 09/08/2023 11:15 AM EDT Nurse Visit [facility] [address] [place] [address] Nurse, Ak [address] [place] [address] [facility] Comment on above: [facility] Start: 07-26-2023 End: 10-25-2023 25-hydroxyvitamin D3 [Mass/volume] in Serum or Plasma [facility] Comment on above: Expected: 07/26/2023 , Expires: 10/25/2023 Start: 07-26-2023 End: 10-25-2023 Basic metabolic 2000 panel - Serum or Plasma [facility] Work Phone: Comment on above: Expected: 07/26/2023 , Expires: 10/25/2023 Start: 07-24-2023 ANNUAL PCP TEAM FIELD OPERATIONS SUPERVISOR KAMRAN DISEASE VISIT ANNUAL PCP TEAM CHRONIC DISEASE VISIT [facility] Start: 04-04-2023 Advance Directive Discussion Advance Directive Discussion [facility] Start: 02-18-2023 Covid-19 Vaccine () Covid-19 Vaccine () [facility] Start: 01-15-2023 ANNUAL PCP TEAM FIELD OPERATIONS SUPERVISOR KAMRAN DISEASE VISIT ANNUAL PCP TEAM CHRONIC DISEASE VISIT [facility] Start: 12-13-2022 Colonoscopy COLONOSCOPY [facility] Start: 12-13-2022 COLORECTAL CANCER SCREENING COLORECTAL CANCER SCREENING [facility] Start: 11-27-2022 ANNUAL PCP TEAM FIELD OPERATIONS SUPERVISOR KAMRAN DISEASE VISIT ANNUAL PCP TEAM CHRONIC DISEASE VISIT [facility] Start: 09-15-2022 ANNUAL PCP TEAM FIELD OPERATIONS SUPERVISOR KAMRAN DISEASE VISIT ANNUAL PCP TEAM CHRONIC DISEASE VISIT [facility] Start: 09-15-2022 BP CONTROLLED (<130/80) BP CONTROLLE D (<130/80) [facility] Start: 04-04-2022 ADVANCE DIRECTIVE DISCUSSION ADVANCE DIRECTIVE DISCUSSION [facility] Start: 04-04-2022 DEPRESSION ASSESSMENT DEPRESSION ASS ESSMENT [facility] Start: 03-18-2022 ANNUAL PCP TEAM FIELD OPERATIONS SUPERVISOR KAMRAN DISEASE VISIT ANNUAL PCP TEAM CHRONIC DISEASE VISIT [facility] Start: 03-18-2022 BP CONTROLLED (<130/80) BP CONTROLLE D (<130/80) [facility] Start: 01-21-2022 Mammography MAMMOGRAM [facility] Start: 01-15-2022 End: 03-17-2022 Comprehensive metabolic 2000 panel - Serum or Plasma [facility] Work Phone: Comment on above: Expected: 01/15/2022 , Expires: 03/17/2022 Start: 01-12-2022 Adult depression screening assessment DEPRESSION SCREENING [facility] Start: 12-03-2021 Influenza vaccination INFLUENZA (#1) [facility] Start: 11-27-2021 End: 01-27-2022 Bacteria identified in Urine by Culture [facility] Work Phone: Comment on above: Expected: 11/27/2021 , Expires: 01/27/2022 Start: 09-15-2021 End: 11-15-2021 C reactive protein [Mass/volume] in Serum or Plasma C-REACTIVE PROTEIN (CRP) Lab Routine Multiple joint pain Expected: 09/15/2021, Expires: 11/15/2021 [facility] Work Phone: Comment on above: Expected: 09/15/2021 , Expires: 11/15/2021 Start: 09-15-2021 End: 11-15-2021 Erythrocyte sedimentation rate SED RATE WESTERGREN Lab Routine Multiple joint pain Expected: 09/15/2021, Expires: 11/15/2021 [facility] Work Phone: Comment on above: Expected: 09/15/2021 , Expires: 11/15/2021 Start: 09-15-2021 End: 11-15-2021 Lipid 1996 panel - Serum or Plasma LIPID PANEL BASIC Lab Routine Hyperlipidemia, unspecified hyperlipidemia type Expected: 09/15/2021, Expires: 11/15/2021 [facility] Work Phone: Comment on above: Expected: 09/15/2021 , Expires: 11/15/2021 Start: 04-04-2021 ADVANCE DIRECTIVE DISCUSSION ADVANCE DIRECTIVE DISCUSSION [facility] Start: 08-03-1991 COLOGUARD (FIT-DNA) COLOGUARD (FIT-D NA) [facility] Start: 08-03-[address] COLONOGRAPHY [facility] Start: 08-03-1991 FECAL OCCULT BLOOD FECAL OCCULT BLOO D [facility] Start: 08-03-1991 SIGMOIDOSCOPY SIGMOIDOSCOPY [facility] Start: 1964 BP CONTROLLED (<130/80) BP CONTROLLE D (<130/80) [facility] Start: 1945 Screening for malign ant neoplasm of colon [facility] Bacteria identified in Urine by Culture URINE CULTURE Microbiology Routine Urinary frequency Ordered: 11/05/2021 [facility] Work Phone: Comment on above: Ordered: 11/05/2021 BD DXA TRABECULAR JOAQUÍN NE SCORE (TBS) BD DXA TRABECULAR BONE SCORE (TBS) Radiology Routine Age-related osteoporosis without current pathological fracture 09/21/2024 10:28 AM EDT [facility] DXA Skeletal system.axial Views for bone density DXA-AXIAL SKELETON Radiology Routine Age-related osteoporosis without current pathological fracture 09/21/2024 10:28 AM EDT [facility] Work Phone: End: 02-23-2024 Radex spine thoracic 3 views XR THORACIC GENERAL 3V AP/LAT/SWIMMERS Radiology Routine Chronic right-sided back pain, unspecified back location 1 Occurrences starting 01/24/2023 until 02/23/2024 [facility] Work Phone: Comment on above: 1 Occurrences starti ng 01/24/2023 until 02/23/2024 Radex spine thoracic 3 views XR THORACIC GENERAL 3V AP/LAT/SWIMMERS Radiology Routine Chronic right-sided back pain, unspecified back location 01/24/2023 1:52 PM EDT [facility] Work Phone: End: 02-14-2023 Screening mammography bi 2-view breast inc cad SVITLANA SCREENING Radiology Routine Encounter for screening mammogram for malignant neoplasm of breast 1 Occurrences starting 01/15/2022 until 02/14/2023 [facility] Work Phone: Comment on above: 1 Occurrences starti ng 01/15/2022 until 02/14/2023 UA DIP B/O UA DIP B/O Lab R outine Hematuria, unspecified type Ordered: 11/27/2021 [facility] Work Phone: Comment on above: Ordered: 11/27/2021 Urinalysis complete panel - Urine URINALYSIS, WITH MICROSCOPIC Lab Routine Hematuria, unspecified type 11/27/2021 9:05 AM EDT [facility] Work Phone: [facility] Immunizations Immunization Date Immunization Notes Care Provider [facility] 01-03-2024 influenza, high dose seasonal, preservative-free Jasmyn [facility] CARDIOLOGY TECHNOLOGIST.HEPATOLOGIST Work Phone: [facility] 01-03-2024 influenza virus vaccine, unspecified formulation Wilbert Villarreal MD Work Phone: [facility] 12-12-2023 COVID-19 vaccine, ag e 12+ yr (MODERNA) Jasmyn [facility] CARDIOLOGY TECHNOLOGIST.HEPATOLOGIST Work Phone: [facility] 12-24-2022 COVID-19 vaccine, unspecified formulation Jasmyn Older CARDIOLOGY TECHNOLOGIST.HEPATOLOGIST Work Phone: [facility] 12-24-2022 influenza (aIIV4) vaccine, age 65+ yr, quadrivalent, PF (FLUAD QUAD) Jasmyn Older CARDIOLOGY TECHNOLOGIST.HEPATOLOGIST Work Phone: [facility] 12-24-2022 respiratory syncytia l virus (RSV) vaccine, bivalent (ABRYSVO) Jasmyn Older CARDIOLOGY TECHNOLOGIST.HEPATOLOGIST Work Phone: [facility] 12-24-2022 influenza virus vaccine, unspecified formulation Xr [place] Work Phone: [facility] 12-23-2021 influenza, high-dose , quadrivalent vaccine (FLUZONE HIGH DOSE QUADRIVALENT) Ak Nurse Work Phone: [facility] Work Phone: 12-17-2020 influenza, high-dose , quadrivalent vaccine (FLUZONE HIGH DOSE QUADRIVALENT) Wilbert Villarreal MD Work Phone: [facility] Work Phone: 06-30-2020 Covid (Moderna) [facility] 06-02-2020 Covid (Moderna) [facility] 02-13-2020 zoster vaccine recombinant Wilbert Villarreal MD Work Phone: [facility] Work Phone: 01-09-2020 influenza, high-dose , quadrivalent vaccine (FLUZONE HIGH DOSE QUADRIVALENT) Wilbert Villarreal MD Work Phone: [facility] 12-06-2019 zoster vaccine recombinant Wilbert Villarreal MD Work Phone: [facility] Work Phone: 07-26-2017 tetanus and diphther ia toxoids, adsorbed, preservative free, for adult use (5 Lf of tetanus toxoid and 2 Lf of diphtheria toxoid) Wilbert Villarreal MD Work Phone: [facility] Work Phone: 12-08-2015 influenza, seasonal, injectable Wilbert Villarreal MD Work Phone: [facility] 02-10-2015 pneumococcal conjuga te vaccine, 13 valent Wilbert Villarreal MD Work Phone: [facility] Work Phone: 01-13-2015 influenza, high dose seasonal, preservative-free Wilbert Villarreal MD Work Phone: [facility] 01-10-2014 influenza, seasonal, injectable Wilbert Villarreal MD Work Phone: [facility] 01-12-2012 influenza virus vaccine, unspecified formulation Wilbert Villarreal MD Work Phone: [facility] 10-22-2011 pneumococcal polysaccharide vaccine, 23 valent Wilbert Villarreal MD Work Phone: [facility] 04-23-2009 novel [id number], all formulations Wilbert Villarreal MD Work Phone: [facility] Work Phone: 04-23-2009 zoster vaccine, live Wilbert Villarreal MD Work Phone: [facility] Work Phone: 04-21-2007 tetanus toxoid, redu pj diphtheria toxoid, and acellular pertussis vaccine, adsorbed Wilbert Villarreal MD Work Phone: [facility] Work Phone: 01-31-2007 influenza virus vaccine, unspecified formulation Wilbert Villarreal MD Work Phone: [facility] Work Phone: Payers Date Payer Category Payer Self-pay [id number] 2017 Medicare [employer] MEDICARE A ETNA MEDICARE PPO [id number] 2017-Present [phone] [address] [place] [address] PPO [id number] 2017 Medicare [employer] MEDICARE A ETNA MEDICARE PPO [id number] 2017-Present [phone] [address] [place] [address] PPO [id number] 2017 Medicare [employer] MEDICARE A ETNA MEDICARE PPO [id number] 2017-Present [phone] [address] [place] [address] PPO [id number] 2017 Medicare (Managed Care) [employer]ETNA [place] D[place]ARE [id number] 2017 Private Health Insurance [id number] 2011 Medicare MEDICARE PART A B [id number] 2011 Unknown ANTHUNA [id number] Private Health Insurance AETNA MCR SEE NOTE [id number] Unknown [id number] Unknown [id number] Unknown [id number] Unknown [id number] Unknown [id number] Unknown [id number] Unknown [id number] Unknown [id number] Unknown [id number] Social History Date Type Detail Facility Start: 11-27-2021 End: 07-03-2024 Tobacco smoking status NHIS Never smoked tobacco [facility] Work Phone: Start: 03-18-2021 End: 07-27-2024 Alcohol intake Current drinker of alcohol (finding) [facility] Start: 03-18-2021 End: 09-07-2022 Alcohol intake [facility] Work Phone: Start: 1945 Sex Assigned At Not on file [facility] Start: 09-05-2021 End: 01-26-2022 Exposure to SARS-CoV-2 (event) Not sure [facility] Work Phone: Start: 11-27-2021 Tobacco use and exposure Smokeless tobacco non-user [facility] Start: 1945 Sex Assigned At Female [facility] Start: 09-07-2022 End: 01-24-2023 Tobacco use panel [facility] Work Phone: Adult Depression Screening Assessment 0 [facility] Work Phone: How often to you hav e a drink containing alcohol? 2-4 times a month [facility] How many standard drinks containing alcohol do you have on a typical day? 1 or 2 [facility] How often do you hav e 6 or more drinks on 1 occasion? Never [facility] Functional Status Date Assessment Result Facility 07-08-2014 Are you deaf, or do you have serious difficulty hearing No 07/08/2014 1:04 PM Arti David RN No [facility] 07-08-2014 Are you blind, or do you have serious difficulty seeing, even when wearing glasses No 07/08/2014 1:04 PM Arti David RN No [facility] 07-08-2014 Do you have serious difficulty walking or climbing stairs No 07/08/2014 1:04 PM Arti David RN No [facility] 07-08-2014 Do you have difficul ty dressing or bathing No 07/08/2014 1:04 PM EDT Arti Hartman RN No [facility] 07-08-2014 Because of a physica l, mental, or emotional condition, do you have difficulty doing errands alone such as visiting a physician's office or shopping No 07/08/2014 1:04 PM EDT Arti Hartman RN No [facility] Mental Status Date Assessment Result Facility 07-08-2014 Because of a physica l, mental, or emotional condition, do you have serious difficulty concentrating, remembering, or making decisions No 07/08/2014 1:04 PM EDT Arti Hartman RN No [facility] Clinical Notes 01-14-2014 to 10-04-2024 JOYA KEYS - 10/04/2024 10:15 AM EDTTelephone Encounter - Jacque Arambula LPN - 10/03/2024 3:41 PM EDTTelephone Encounter - Jacque Arambula LPN - 10/03/2024 3:41 PM EDTPatient Instructions Note Date & Type Note Facility 10-04-2024 Note HNO ID: [id number] Author: ?, ?, ? Service: ? Author Type: LICENSED NURSE Type: Progress Notes Filed: 10/04/2024 10:16 Note Text: Patient presents for Prolia injection. Denies any problems at this time. Brought own medication. Patient instructed on any SE of medication, verbalized understanding and agreed to proceed with treatment. Tolerated injection well. Joya Keys LPN [facility] 10-04-2024 History of Presen t illness Narrative Patient presents for Prolia injection. Denies any problems at this time. Brought own medication. Patient instructed on any SE of medication, verbalized understanding and agreed to proceed with treatment. Tolerated injection well. Joya Keys LPN documented in this encounter [facility] 10-03-2024 Telephone encounter Note Pt has been scheduled for nurse visit 10/04/24. Called pt to review that the prolia was rec'd from [facility] pharmacy and she reports she already picked this up from [facility]. This was previously approved with pharmacy benefits but pt said too costly. Reviewed with her she would like to see if her medical benefits would cover this. [facility] 10-03-2024 Miscellaneous Notes Pt has been scheduled for nurse visit 10/04/24. Called pt to review that the prolia was rec'd from [facility] pharmacy and she reports she already picked this up from [facility]. This was previously approved with pharmacy benefits but pt said too costly. Reviewed with her she would like to see if her medical benefits would cover this. Called again and this was reviewed over the phone as a buy and bill. Auth number is [id number] from 09/24/24 to 09/24/2025. Called the provider number on pt's insurance card at [phone] spent 10 minutes with the automated system. Then need to call [phone]. Unable to get call to go through. Call was disconnected twice. Bone density is scheduled for 09/21/24 then will review about any PA for debbie. In review this has been approved 2022 and 2023. Bones density is due this year. To complete the bone density first before completing a PA would be helpful.pt notified she will get the bone density arranged first. Pt calls back and reports insurance advised that Dr. Pan would have to appy through [employer] for medical coverage. Pt asking if office would do this please. PRIOR AUTHORIZATION Medication for Prior Authorization: Prolia injection Other formulary meds available : unknown Insurance Company: [employer] Medicare - [employer] number: [id number] Insurance Company phone number: pt did not have a phone number ([phone]- off of card in scanning) Patient insurance ID number: [id number] Idalia Fuentes LPN Phoned patient at this time d/t she had to cancel Prolia appt today; medication was going to cost her $700+ at the pharmacy. Recommended that she contact her medical insurance to see if they would cover if she received in office with us supplying medication. She verbalized understanding and will contact office back with update. *If able to get medication approve with [facility] providing, please help schedule patient at least 2 weeks out to ensure delivery of medication. Joya Keys LPN documented in this encounter [facility] 09-24-2024 Telephone encounter Note Called again and this was reviewed over the phone as a buy and bill. Auth number is [id number] from 09/24/24 to 09/24/2025. [facility] 09-24-2024 Telephone encounter Note Called the provider number on pt's insurance card at [phone] spent 10 minutes with the automated system. Then need to call [phone]. Unable to get call to go through. Call was disconnected twice. [facility] 09-21-2024 History of Presen t illness Narrative Radiology Service Progress Note PATIENT NAME: Mulu Brown DATE OF SERVICE: September 21, 2024 TIME: 10:06 AM PATIENT IDENTITY VERIFICATION COMPLETED USING TWO (2) IDENTIFIERS: Name and Date of confirmed by patient verbally. FALL SCREENING: Has the patient had 2 falls in the last year or 1 fall with injury or currently using an Ambulatory Assistive Device (Walker, Cane, Wheelchair, Crutches, etc.)? No PATIENT GENDER DATA: Assigned female at . status: : No status: NO. PATIENT RELEVANT IMPLANT DATA REVIEWED: Not Applicable PATIENT PRESENTS WITH AN IMPLANTABLE OR ATTACHED HAT AND CAP DRYING ROOM ATTENDANT: No RADIOLOGY DEPARTMENT: Bone Density PERIPHERAL IV DATA: Not applicable SIGNED BY: RT Jesus(Leydi) September 21, 2024 10:06 AM documented in this encounter [facility] 09-21-2024 Note HNO ID: [id number] Author: KERVIN JIANG RT(R) Service: ? Author Type: Technologist Type: Progress Notes Filed: 09/21/2024 10:18 Note Text: Radiology Service Progress Note PATIENT NAME: Mulu Brown DATE OF SERVICE: September 21, 2024 TIME: 10:06 AM PATIENT IDENTITY VERIFICATION COMPLETED USING TWO (2) IDENTIFIERS: Name and Date of confirmed by patient verbally. FALL SCREENING: Has the patient had 2 falls in the last year or 1 fall with injury or currently using an Ambulatory Assistive Device (Walker, Cane, Wheelchair, Crutches, etc.)? No PATIENT GENDER DATA: Assigned female at . status: : No status: NO. PATIENT RELEVANT IMPLANT DATA REVIEWED: Not Applicable PATIENT PRESENTS WITH AN IMPLANTABLE OR ATTACHED HAT AND CAP DRYING ROOM ATTENDANT: No RADIOLOGY DEPARTMENT: Bone Density PERIPHERAL IV DATA: Not applicable SIGNED BY: RT Jesus(R) September 21, 2024 10:06 AM [facility] 09-19-2024 Telephone encounter Note Bone density is scheduled for 09/21/24 then will review about any PA for prolia. [facility] 09-10-2024 Telephone encounter Note In review this has been approved 2022 and 2023. Bones density is due this year. To complete the bone density first before completing a PA would be helpful.pt notified she will get the bone density arranged first. [facility] 09-10-2024 Telephone encounter Note Pt calls back and reports insurance advised that Dr. Pan would have to appy through [employer] for medical coverage. Pt asking if office would do this please. PRIOR AUTHORIZATION Medication for Prior Authorization: Prolia injection Other formulary meds available : unknown Insurance Company: [employer] - [employer] number: [id number] Insurance Company phone number: pt did not have a phone number ([phone]- off of card in scanning) Patient insurance ID number: [id number] Idalia Fuentes LPN [facility] 09-10-2024 Telephone encounter Note Phoned patient at this time d/t she had to cancel Prolia appt today; medication was going to cost her $700+ at the pharmacy. Recommended that she contact her medical insurance to see if they would cover if she received in office with us supplying medication. She verbalized understanding and will contact office back with update. *If able to get medication approve with [facility] providing, please help schedule patient at least 2 weeks out to ensure delivery of medication. Joya Keys LPN [facility] 09-05-2024 Telephone encounter Note Left detailed message on identified voicemail that prescription was sent to pharmacy and for patient to call back if she has any questions. Fe Lawson RN [facility] 09-05-2024 Miscellaneous Notes Left detailed message on identified voicemail that prescription was sent to pharmacy and for patient to call back if she has any questions. Fe Lawson RN The following approved medication requests have been transmitted electronically. Requested Prescriptions Signed Prescriptions Disp Refills denosumab (PROLIA) 60 mg/mL 1 mL 1 Sig: Inject 1 mL subcutaneously once every 6 months. Authorizing Provider: WILBERT VILLARREAL MD Patient calls and states that she has injection scheduled on Tuesday but needs prescription sent to [facility]. The patient has been identified by name and date of : Yes Caregiver verified no other encounters exist for this prescription request: Yes Caregiver confirmed with patient/requestor that no other refills are due, in the near future, with this provider at this time: Yes The last office visit in the department: 07/27/2024 Does the patient have a future office visit with this provider/department: Yes 01/29/2025 Requested Prescriptions Pending Prescriptions Disp Refills denosumab (PROLIA) 60 mg/mL 1 mL 1 Sig: Inject 1 mL subcutaneously once every 6 months. Fe Lawson RN September 05, 2024 10:22 AM documented in this encounter [facility] 09-05-2024 Telephone encounter Note The following approved medication requests have been transmitted electronically. Requested Prescriptions Signed Prescriptions Disp Refills denosumab (PROLIA) 60 mg/mL 1 mL 1 Sig: Inject 1 mL subcutaneously once every 6 months. Authorizing Provider: WILBERT VILLARREAL MD [facility] 09-05-2024 Telephone encounter Note Patient calls and states that she has injection scheduled on Tuesday but needs prescription sent to [facility]. The patient has been identified by name and date of : Yes Caregiver verified no other encounters exist for this prescription request: Yes Caregiver confirmed with patient/requestor that no other refills are due, in the near future, with this provider at this time: Yes The last office visit in the department: 07/27/2024 Does the patient have a future office visit with this provider/department: Yes 01/29/2025 Requested Prescriptions Pending Prescriptions Disp Refills denosumab (PROLIA) 60 mg/mL 1 mL 1 Sig: Inject 1 mL subcutaneously once every 6 months. Fe Lawson RN September 05, 2024 10:22 AM [facility] 07-27-2024 Note HNO ID: [id number] Author: WILBERT VILLARREAL MD Service: ? Author Type: Physician Type: Progress Notes Filed: 07/27/2024 13:11 Note Text: This note was created using [employer]. Subjective Mulu Brown is a 78 year old female. She was doing well. Her hypertension and lipids were controlled. She had chronic left shoulder pain from osteoarthritis and adhesive capsulitis. She had been seeing Dr. Delano Duong and surgery was planned this year, after recommended physical therapy. Review of Systems Constitutional: Negative for fatigue and fever. Respiratory: Negative for cough and shortness of breath. Cardiovascular: Negative for chest pain, palpitations and leg swelling. Neurological: Negative for dizziness and headaches. ACTIVE PROBLEM LIST Hyperlipidemia [facility] Arthritis Age-Related Osteoporosis Without Current Pathological Fracture Bmi 30.0-30.9,Adult Rhinitis, Non-Allergic Acrochordon Contact Dermatitis Hypertension History of Colonic Polyps Social History Tobacco Use Smoking status: Never Smokeless tobacco: Never Vaping Use Vaping status: Never Used Substance Use Topics Alcohol use: Yes Alcohol/week: 3.0 standard drinks of alcohol Types: 3 Glasses of Wine (5oz) per week Comment: wine-occasional Drug use: No Current Outpatient Medications Medication Sig rosuvastatin (CRESTOR) 10 mg tablet Take 1 tablet by mouth three times a week. denosumab (PROLIA) 60 mg/mL Inject 1 mL subcutaneously once every 6 months. amLODIPine (NORVASC) 5 mg tablet Take 1 tablet by mouth once daily. fluticasone (FLONASE) 50 mcg/actuation nasal spray Use 2 Sprays in each nostril once daily. Rinse mouth after use. cholecalciferol (VITAMIN D3) 1,000 unit tab tablet Take 1 tablet by mouth once daily. triamcinolone acetonide (KENALOG) 0.1 % cream Apply to affected area. APPLY TO RASH BID NEEDED Biotin 10,000 mcg cap Take 1 capsule by mouth once daily. COMPOUNDED PRESCRIPTION Take 1 capsule by mouth once daily. Q [facility]-Dr. Coleman FOLIC ACID 400 MCG TAB Take one(1) tablet daily. No current facility-administered medications for this visit. Objective BP 136/74 (BP Site: Left Arm, BP Position: Sitting, BP Cuff Size: Large Adult) Pulse 79 Temp 36.4 ?C (97.5 ?F) (Temporal) Resp 12 Ht 152.4 cm (5') Wt 75.7 kg (166 lb 14.2 oz) SpO2 96% BMI 32.59 kg/m? Physical Exam Constitutional: General: She is not in acute distress. Cardiovascular: Rate and Rhythm: Normal rate and regular rhythm. Heart sounds: No murmur heard. No gallop. Pulmonary: Breath sounds: Normal breath sounds. Musculoskeletal: Left shoulder: Decreased range of motion. Right lower leg: No edema. Left lower leg: No edema. Neurological: Mental Status: She is alert. Assessment and Plan 1. Primary osteoarthritis of left shoulder - ICD9: 715.11, ICD10: M19.012 (primary diagnosis) Return for preoperative evaluation when indicated or requested. 2. Hyperlipidemia, unspecified hyperlipidemia type - ICD9: 272.4, ICD10: E78.5 - Controlled - Continue current medications - Counseled on healthy diet and regular exercise - COMPREHENSIVE METABOLIC PANEL - LIPID PANEL, FASTING 3. Age-related osteoporosis without current pathological fracture - ICD9: 733.01, ICD10: M81.0 - continue tx with PROLIA - set up for BMD AP Spine and Hip Unilateral - Reviewed the need for Calcium and Vitamin D supplements and weight bearing exercise as tolerated - DXA-AXIAL SKELETON - BD DXA TRABECULAR BONE SCORE (TBS) - Message sent to patient to schedule. 4. Primary hypertension - ICD9: 401.9, ICD10: I10 - Controlled - Continue current medications - COMPLETE BLOOD COUNT - AMLODIPINE 5 MG TABLET Wilbert Villarreal MD [facility] 07-19-2024 Telephone encounter Note Prescription Refill Information The patient has been identified by name and date of : Yes Caregiver verified no other encounters exist for this prescription request: Yes Caregiver confirmed with patient/requestor that no other refills are due, in the near future, with this provider at this time: Yes The last office visit in the department: 01/31/2024 Does the patient have a future office visit with this provider/department: Yes Requested Prescriptions Pending Prescriptions Disp Refills rosuvastatin (CRESTOR) 10 mg tablet 36 tablet 3 Sig: Take 1 tablet by mouth three times a week. Denisa Arreguin July 19, 2024 8:16 AM [facility] 07-19-2024 Miscellaneous Notes Prescription Refill Information The patient has been identified by name and date of : Yes Caregiver verified no other encounters exist for this prescription request: Yes Caregiver confirmed with patient/requestor that no other refills are due, in the near future, with this provider at this time: Yes The last office visit in the department: 01/31/2024 Does the patient have a future office visit with this provider/department: Yes Requested Prescriptions Pending Prescriptions Disp Refills rosuvastatin (CRESTOR) 10 mg tablet 36 tablet 3 Sig: Take 1 tablet by mouth three times a week. Denisa Arreguin July 19, 2024 8:16 AM documented in this encounter [facility] 03-12-2024 Note HNO ID: [id number] Author: JOYA KEYS LPN Service: ? Author Type: LICENSED NURSE Type: Progress Notes Filed: 03/12/2024 09:28 Note Text: Patient presents for Prolia injection. Denies any problems at this time. Brought own medication. Patient instructed on any SE of medication, verbalized understanding and agreed to proceed with treatment. Tolerated injection well. Joya Keys LPN' [facility] 03-12-2024 History of Presen t illness Narrative Patient presents for Prolia injection. Denies any problems at this time. Brought own medication. Patient instructed on any SE of medication, verbalized understanding and agreed to proceed with treatment. Tolerated injection well. Joya Keys LPN' documented in this encounter [facility] 01-31-2024 Instructions Jasmyn Mcguire, CARDIOLOGY TECHNOLOGIST.HEPATOLOGIST - 01/31/2024 9:14 AM EDT Anticipate redness, with itching or burning pain initially. Tylenol (if you are able to take Tylenol) or cold compresses can help with any significant discomfort. Pain from cryotherapy can last up to 3 days. Complete healing is generally quick (7 to 14 days) with little or no scarring. Within hours after treatment, a blister may form. If the blister breaks, clean the area to prevent the spread of the virus. Avoid contact with the fluid, which may contain the wart virus. May apply antibiotic ointment and cover with bandage if needed The blister will dry up over the next days Multiple treatments may be needed. If lesion is persistent 3 to 4 weeks after treatment, please return to clinic for additional treatment Call office if you develop: Increased pain, swelling, redness, tenderness, or heat. Red streaks extending from the area. Discharge of pus. Fever. WHAT YOU CAN DO TO PREVENT FALLS Many falls can be prevented. By making some changes, you can lower your chances of falling. Four things YOU can do to prevent falls for you* and your caregiver 1. Begin a regular exercise program Exercise is one of the most important ways to lower your chances of falling. It makes you stronger and helps you feel better. Exercises that improve balance and coordination (like León Chi) are the most helpful. Lack of exercise leads to weakness and increases your chances of falling. Ask your doctor or health care provider about the best type of exercise program for you. 2. Have your health care provider review your medicines Have your doctor or pharmacist review all the medicines you take, even [id number] medicines. As you get older, the way medicines work in your body can change. Some medicines, or combinations of medicines, can make you sleepy or dizzy and can cause you to fall. 3. Have your vision checked Have your eyes checked by an eye doctor at least once a year. You may be wearing the wrong glasses or have a condition like glaucoma or cataracts that limits your vision. Poor vision can increase your chances of falling. 4. Make your home safer About half of all falls happen at home. To make your home safer: Remove things you can trip over (like papers, books, clothes, and shoes) from stairs and places where you walk. Remove small throw rugs or use double-sided tape to keep the rugs from slipping. Keep items you use often in cabinets you can reach easily without using a step stool. Have grab bars put in next to your toilet and in the tub or shower. Use non-slip mats in the bathtub and on shower floors. Improve the lighting in your home. As you get older, you need brighter lights to see well. Hang light-weight curtains or shades to reduce glare. Have handrails and lights put in on all staircases. Wear shoes both inside and outside the house. Avoid going barefoot or wearing slippers. For more information, contact: Centers for Disease Control and Prevention www.cdc.gov/injury * This information may not apply if you have certain medical conditions. documented in this encounter [facility] 01-31-2024 Note HNO ID: [id number] Author: JASMYN MCGUIRE APRN.PAULA Service: ? Author Type: Nurse Practitioner Type: Progress Notes Filed: 01/31/2024 09:29 Note Text: Mulu Brown is a 78 year old female here for a Medicare wellness visit. Medicare Health Risk Assessment General Health Very good Exercise: Minutes/Day 50 min Exercise: Days/Week 3 days Alcohol: Daily Use 2-4 times a month Alcohol: Drinks/Day 1 or 2 Alcohol: 6 or more drinks Never Feel off balance No Concerns: Teeth/Dentures No Concerns: Sexual function No Troubled by feelings None of the above Frequency: Eating healthy diet Nearly every day ADLs requiring help None of the above Safety precautions in home/vehicle Yes (no grab bars) Smoke, vape, chews tobacco No Difficulty hearing No Difficulty seeing No Current Providers Specialists: I have reviewed specialist-related care of the patient in the medical record. Current care team: Patient Care Team: Wilbert Villarreal MD as PCP - General (Internal Medicine) Outside specialists seen: [facility] Medical/Family history review Reviewed and updated problem list, medical/surgical/family/social history, medications, and allergies. Opioid use review Opioid Medications (last 90 days) No data to display Anxiety/Depression screening Recommendation: no further intervention at this time Cognitive screening Mini Cog Score: 4 Cognitive screening reviewed and No further action needed (score 3-5). Functional Observation Was the patient's Timed Up AND Go test unsteady or >= 12 seconds? No Advance Care Planning Surrogate decision maker documented and/or advance directives scanned in chart Measurements BP 126/72 Pulse 78 Resp 14 Ht 154 cm (5' 0.63) Wt 76.5 kg (168 lb 10.4 oz) SpO2 97% BMI 32.26 kg/m? Vision Screening: Follows with optometry/ophthalmology Assessment/Plan Medicare annual wellness visit, subsequent (Z00.00) - Counseled on healthy diet and regular exercise - Fall avoidance information provided - Personalized prevention plan provided - Discussed need for and benefit of weight loss. BMI 32.26 kg/(m2) Additional Concerns The following concerns were also discussed with the patient: Skin tag on her neck, would like it removed. Taking medications as prescribed, denies side effects. Does not check her BP at home. Denies headaches, dizziness, lightheadedness, chest pain, SOB, palpitations, edema, fatigue. PHYSICAL EXAM BP 126/72 Pulse 78 Resp 14 Ht 154 cm (5' 0.63) Wt 76.5 kg (168 lb 10.4 oz) SpO2 97% BMI 32.26 kg/m? GENERAL: well appearing, alert, in no acute distress CARDIOVASCULAR: regular rate and rhythm. No murmur, rubs or gallops. PULMONARY: clear to auscultation, no wheezing, rhonchi, or crackles Left anterior neck- We discussed risks and benefits of cryotherapy as well as other options for skin tag treatment: agreed to proceed. 15 sec freeze once applied to small skin tag ASSESSMENT/PLAN: 1. Medicare annual wellness visit, subsequent - ICD9: V70.0, ICD10: Z00.00 (primary diagnosis) See medicare wellness plan 2. Acrochordon - ICD9: 701.9, ICD10: L91.8 Treated with cryotherapy. Patient tolerated well. Skin care discussed, see patient instructions 3. Primary hypertension - ICD9: 401.9, ICD10: I10 - Controlled - Continue current medications - Recommend home blood pressure monitoring, to bring results to next visit - Encouraged sodium restriction, DASH or Mediterranean diet 4. Hyperlipidemia, unspecified hyperlipidemia type - ICD9: 272.4, ICD10: E78.5 - Controlled - Continue current medications Jasmyn Mcguire APRN.[facility] 01-31-2024 History of Presen t illness Narrative Images from the original note were not included. Mulu Brown is a 78 year old female here for a Medicare wellness visit. Medicare Health Risk Assessment General Health Very good Exercise: Minutes/Day 50 min Exercise: Days/Week 3 days Alcohol: Daily Use 2-4 times a month Alcohol: Drinks/Day 1 or 2 Alcohol: 6 or more drinks Never Feel off balance No Concerns: Teeth/Dentures No Concerns: Sexual function No Troubled by feelings None of the above Frequency: Eating healthy diet Nearly every day ADLs requiring help None of the above Safety precautions in home/vehicle Yes (no grab bars) Smoke, vape, chews tobacco No Difficulty hearing No Difficulty seeing No Current Providers Specialists: I have reviewed specialist-related care of the patient in the medical record. Current care team: Patient Care Team: Wilbert Villarreal MD as PCP - General (Internal Medicine) Outside specialists seen: [facility] Medical/Family history review Reviewed and updated problem list, medical/surgical/family/social history, medications, and allergies. Opioid use review Opioid Medications (last 90 days) No data to display Anxiety/Depression screening Recommendation: no further intervention at this time Cognitive screening Mini Cog Score: 4 Cognitive screening reviewed and No further action needed (score 3-5). Functional Observation Was the patient's Timed Up & Go test unsteady or >= 12 seconds? No Advance Care Planning Surrogate decision maker documented and/or advance directives scanned in chart Measurements BP 126/72 Pulse 78 Resp 14 Ht 154 cm (5' 0.63) Wt 76.5 kg (168 lb 10.4 oz) SpO2 97% BMI 32.26 kg/m Vision Screening: Follows with optometry/ophthalmology Assessment/Plan Medicare annual wellness visit, subsequent (Z00.) - Counseled on healthy diet and regular exercise - Fall avoidance information provided - Personalized prevention plan provided - Discussed need for and benefit of weight loss. BMI 32.26 kg/(m^2) Additional Concerns The following concerns were also discussed with the patient: Skin tag on her neck, would like it removed. Taking medications as prescribed, denies side effects. Does not check her BP at home. Denies headaches, dizziness, lightheadedness, chest pain, SOB, palpitations, edema, fatigue. PHYSICAL EXAM BP 126/72 Pulse 78 Resp 14 Ht 154 cm (5' 0.63) Wt 76.5 kg (168 lb 10.4 oz) SpO2 97% BMI 32.26 kg/m GENERAL: well appearing, alert, in no acute distress CARDIOVASCULAR: regular rate and rhythm. No murmur, rubs or gallops. PULMONARY: clear to auscultation, no wheezing, rhonchi, or crackles Left anterior neck- We discussed risks and benefits of cryotherapy as well as other options for skin tag treatment: agreed to proceed. 15 sec freeze once applied to small skin tag ASSESSMENT/PLAN: 1. Medicare annual wellness visit, subsequent - ICD9: V70.0, ICD10: Z00.00 (primary diagnosis) See medicare wellness plan 2. Acrochordon - ICD9: 701.9, ICD10: L91.8 Treated with cryotherapy. Patient tolerated well. Skin care discussed, see patient instructions 3. Primary hypertension - ICD9: 401.9, ICD10: I10 - Controlled - Continue current medications - Recommend home blood pressure monitoring, to bring results to next visit - Encouraged sodium restriction, DASH or Mediterranean diet 4. Hyperlipidemia, unspecified hyperlipidemia type - ICD9: 272.4, ICD10: E78.5 - Controlled - Continue current medications Jasmyn Mcguire APRN.HEPATOLOGIST documented in this encounter [facility] 09-08-2023 History of Presen t illness Narrative Patient presents for Prolia injection. Denies any problems at this time. Brought own medication. Patient instructed on any SE of medication, verbalized understanding and agreed to proceed with treatment. Tolerated injection well. Joya Keys LPN documented in this encounter [facility] 08-16-2023 Telephone encounter Note Images from the original note were not included. Prior authorization approved Payer: [employer] [phone] Approval Details Authorized from April 04, 2023 to April 03, 2024 Electronic appeal: Not supported View History Notes Time User Attachment Attachment received from [employer]. 08/16/2023 4:06 PM [facility], Rx Priorauth In Document Medication Being Authorized denosumab (PROLIA) 60 mg/mL Inject 1 mL subcutaneously once every 6 months. Dispense: 1 mL Refills: 1 Start: 08/16/2023 Class: Normal This order has been released to its destination. To be filled at: [facility] [address] [place] [id number] [address] [facility] - [phone] Pharmacy notified. [facility] 08-16-2023 Miscellaneous Notes Images from the original note were not included. Prior authorization approved Payer: [employer] [phone] Approval Details Authorized from April 04, 2023 to April 03, 2024 Electronic appeal: Not supported View History Notes Time User Attachment Attachment received from [employer]. 08/16/2023 4:06 PM [facility], Rx Priorauth In Document Medication Being Authorized denosumab (PROLIA) 60 mg/mL Inject 1 mL subcutaneously once every 6 months. Dispense: 1 mL Refills: 1 Start: 08/16/2023 Class: Normal This order has been released to its destination. To be filled at: [facility] [address] [place] [address] [address] - [phone] Pharmacy notified. Covermymeds PA rec'd. This was completed electronically. documented in this encounter [facility] 08-16-2023 Telephone encounter Note Covermymeds PA rec'd. This was completed electronically. [facility] 08-16-2023 Telephone encounter Note Patient scheduled for upcoming nurse visit 09/08/23 to receive Prolia. Needs new Rx sent to pharmacy to bring with her to appt. [facility] 08-16-2023 Miscellaneous Notes Patient scheduled for upcoming nurse visit 09/08/23 to receive Prolia. Needs new Rx sent to pharmacy to bring with her to appt. documented in this encounter [facility] 08-16-2023 Telephone encounter Note Patient scheduled for nurse visit 09/08/23 to receive Prolia injection. Please place new administration order at this time. Joya Keys LPN [facility] 08-16-2023 Miscellaneous Notes Patient scheduled for nurse visit 09/08/23 to receive Prolia injection. Please place new administration order at this time. Joya Keys LPN documented in this encounter [facility] 07-26-2023 History of Presen t illness Narrative This note was created using Spotzerriter. Subjective Mulu Bronw is a 77 year old female. Her hypertension and lipids were controlled. Her vitamin D was high last fall, and she stopped extra vitamin D supplement, and was only taking Caltrate with D one tablet daily. She had colonoscopy 2 months ago, and polyps were removed. Repeat was recommended in 5 years. She recovered from a upper respiratory infection last week, in the setting of travel. She still had some vague ear sensation. Review of Systems Constitutional: Negative for fatigue and fever. HENT: Negative for congestion, ear discharge, ear pain and sore throat. Eyes: Negative for visual disturbance. Respiratory: Negative for cough and shortness of breath. Cardiovascular: Negative for chest pain, palpitations and leg swelling. Neurological: Negative for dizziness and headaches. ACTIVE PROBLEM LIST Hyperlipidemia Cmc Arthritis Age-Related Osteoporosis Without Current Pathological Fracture Bmi 30.0-30.9,Adult Rhinitis, Non-Allergic Acrochordon Contact Dermatitis Hypertension History of Colonic Polyps PAST SURGICAL HISTORY Procedure Laterality Date ARTHROPLASTY TOTAL SHOULDER Right 12/08/2016 Dr. Aldana DELIVERY ONLY 1982 , low cervical COLONOSCOPY FLX DX W/COLLJ SPEC WHEN PFRMD 08/07/2007 Colonoscopy COLONOSCOPY FLX DX W/COLLJ SPEC WHEN PFRMD 12/13/2017 adenomatous polyp, repeat in 5 years COLONOSCOPY WITH BIOPSY 05/30/2023 PAST SURGICAL HISTORY OF Right 01/11/2002 RIGHT THUMB EXTENSOR TENDON REPAIR Social History Tobacco Use Smoking status: Never Smokeless tobacco: Never Vaping Use Vaping Use: Never used Substance Use Topics Alcohol use: Yes Alcohol/week: 3.0 standard drinks of alcohol Types: 3 Glasses of Wine (5oz) per week Comment: wine-occasional Drug use: No Current Outpatient Medications Medication Sig cholecalciferol (VITAMIN D3) 1,000 unit tab tablet Take 1 tablet by mouth once daily. rosuvastatin (CRESTOR) 10 mg tablet Take 1 tablet by mouth three times a week. fluticasone (FLONASE) 50 mcg/actuation nasal spray Use 2 Sprays in each nostril once daily. Rinse mouth after use. amLODIPine (NORVASC) 5 mg tablet Take 1 tablet by mouth once daily. triamcinolone acetonide (KENALOG) 0.1 % cream Apply to affected area. APPLY TO RASH BID NEEDED Biotin 10,000 mcg cap Take 1 capsule by mouth once daily. COMPOUNDED PRESCRIPTION Take 1 capsule by mouth once daily. Q [facility]-Dr. Coleman FOLIC ACID 400 MCG TAB Take one(1) tablet daily. No current facility-administered medications for this visit. Objective Blood Pressure 116/73 (BP Site: Left Arm, BP Position: Sitting, BP Cuff Size: Large Adult) Pulse 91 Temperature 36.9 C (98.5 F) (Temporal) Respiration 16 Weight 75.3 kg (166 lb) Body Mass Index 30.36 kg/m Physical Exam Constitutional: Appearance: Normal appearance. HENT: Right Ear: Tympanic membrane and ear canal normal. Left Ear: Tympanic membrane and ear canal normal. Nose: Nose normal. Cardiovascular: Rate and Rhythm: Normal rate and regular rhythm. Heart sounds: No murmur heard. No gallop. Pulmonary: Effort: No respiratory distress. Breath sounds: No wheezing or rales. Musculoskeletal: Right lower leg: No edema. Left lower leg: No edema. Neurological: Mental Status: She is alert. Row Labels Depression Screening PHQ-2 Score OMARI-2 Total Score 07/26/2023 0 0 Depression screening tool completed and reviewed. Based on score and interview, patient is not at risk for depression. Screening tool discussed with patient, and I recommended no further intervention at this time. Assessment and Plan 1. Rhinitis, non-allergic - ICD9: 472.0, ICD10: J31.0 (primary diagnosis) Controlled. - FLUTICASONE PROPIONATE 50 MCG/ACTUATION NASAL SPRAY,SUSPENSION 2. Hyperlipidemia, unspecified hyperlipidemia type - ICD9: 272.4, ICD10: E78.5 - Controlled - Continue current medications - Counseled on healthy diet and regular exercise - ROSUVASTATIN 10 MG TABLET - COMPREHENSIVE METABOLIC PANEL - LIPID PANEL BASIC 3. Primary hypertension - ICD9: 401.9, ICD10: I10 - Controlled - Continue current medications - AMLODIPINE 5 MG TABLET - BASIC METABOLIC PANEL 4. Age-related osteoporosis without current pathological fracture - ICD9: 733.01, ICD10: M81.0 - continue tx with PROLIA. - Reviewed the need for Calcium and Vitamin D supplements and weight bearing exercise as tolerated - VITAMIN D 25 HYDROXY 5. Dysfunction of Eustachian tube, unspecified laterality - ICD9: 381.81, ICD10: H69.90 - Reassured. 6. Tubular adenoma of colon - ICD9: 211.3, ICD10: D12.6 - Repeat colonoscopy in 5 years. Wilbert Villarreal MD documented in this encounter [facility] 03-09-2023 History of Presen t illness Narrative Patient presents for Prolia injection. Denies any problems at this time. Brought own medication. Patient instructed on any SE of medication, verbalized understanding and agreed to proceed with treatment. Tolerated injection well. Joya Keys LPN documented in this encounter [facility] 01-24-2023 History of Presen t illness Narrative Radiology Service Progress Note PATIENT NAME: Mulu Brown DATE OF SERVICE: January 24, 2023 TIME: 1:41 PM PATIENT IDENTITY VERIFICATION COMPLETED USING TWO (2) IDENTIFIERS: Name and Date of confirmed by patient verbally. FALL SCREENING: Has the patient had 2 falls in the last year or 1 fall with injury or currently using an Ambulatory Assistive Device (Walker, Cane, Wheelchair, Crutches, etc.)? No PATIENT GENDER DATA: Female. status: : No status: NO. PATIENT RELEVANT IMPLANT DATA REVIEWED: Not Applicable RADIOLOGY DEPARTMENT: General X-ray: Exam(s) Completed: Spine X-Ray(s): Thoracic PERIPHERAL IV DATA: Not applicable SIGNED BY: RT Dominick(R) January 24, 2023 1:41 PM documented in this encounter [facility] 01-24-2023 Jasmyn Brady APRN.PAULA - 01/24/2023 1:16 PM EDT WHAT YOU CAN DO TO PREVENT FALLS Many falls can be prevented. By making some changes, you can lower your chances of falling. Four things YOU can do to prevent falls for you* and your caregiver 1. Begin a regular exercise program Exercise is one of the most important ways to lower your chances of falling. It makes you stronger and helps you feel better. Exercises that improve balance and coordination (like Elón Chi) are the most helpful. Lack of exercise leads to weakness and increases your chances of falling. Ask your doctor or health care provider about the best type of exercise program for you. 2. Have your health care provider review your medicines Have your doctor or pharmacist review all the medicines you take, even [id number] medicines. As you get older, the way medicines work in your body can change. Some medicines, or combinations of medicines, can make you sleepy or dizzy and can cause you to fall. 3. Have your vision checked Have your eyes checked by an eye doctor at least once a year. You may be wearing the wrong glasses or have a condition like glaucoma or cataracts that limits your vision. Poor vision can increase your chances of falling. 4. Make your home safer About half of all falls happen at home. To make your home safer: Remove things you can trip over (like papers, books, clothes, and shoes) from stairs and places where you walk. Remove small throw rugs or use double-sided tape to keep the rugs from slipping. Keep items you use often in cabinets you can reach easily without using a step stool. Have grab bars put in next to your toilet and in the tub or shower. Use non-slip mats in the bathtub and on shower floors. Improve the lighting in your home. As you get older, you need brighter lights to see well. Hang light-weight curtains or shades to reduce glare. Have handrails and lights put in on all staircases. Wear shoes both inside and outside the house. Avoid going barefoot or wearing slippers. For more information, contact: Centers for Disease Control and Prevention www.cdc.gov/injury * This information may not apply if you have certain medical conditions. documented in this encounter [facility] 01-24-2023 History of Presen t illness Narrative Mulu Brown is a 77 year old female here for a Medicare wellness visit. Medicare Health Risk Assessment General Health excellent Exercise: Minutes/Day 30 minutes Exercise: Days/Week 3 Alcohol: Daily Use no Alcohol: Drinks/Day 3/week Alcohol: 6 or more drinks no Feel off balance no Concerns: Teeth/Dentures no Concerns: Sexual function no Troubled by feelings no Frequency: Eating healthy diet yes ADLs requiring help no Safety precautions in home/vehicle yes Smoke, vape, chews tobacco no Difficulty hearing no Difficulty seeing no Current Providers Specialists: I have reviewed specialist-related care of the patient in the medical record. Current care team: Patient Care Team: Wilbert Villarreal MD as PCP - General (Internal Medicine) Outside specialists seen: [facility] Massage therapy- Ab Chiropractor Medical/Family history review Reviewed and updated problem list, medical/surgical/family/social history, medications, and allergies. Opioid use review Opioid Medications (last 90 days) Some values may be hidden. Unless noted otherwise, only the newest values recorded on each date are displayed. Opioid Medications No data to display. Depression screening Depression Screening PHQ-2 Score 01/15/2022 0 Depression screening tool completed and reviewed. Based on score and interview, patient is not at risk for depression. Screening tool discussed with patient, and I recommended no further intervention at this time. Time spent in depression screening and assessment: < 5 minutes. Cognitive screening Mini Cog Score: 5 Functional Observation Was the patient's timed Up & Go test unsteady or ? 12 seconds? No Advance Care Planning Patient did not wish or was not able to name a surrogate decision maker or provide an advance care plan Measurements BP 134/78 Pulse 88 Resp 12 Ht 5' .75 (1.54m) Wt 167 lb (75.8kg) SpO2 96% BMI 31.82 kg/(m^2). Additional screenings: No results found. Assessment/Plan Medicare annual wellness visit, subsequent (Z00.00) - Counseled on healthy diet and regular exercise - Fall avoidance information provided - Personalized prevention plan provided - Discussed need for and benefit of weight loss. BMI 31.81 kg/(m^2) Additional Concerns The following concerns were also discussed with the patient: Chronic mid back pain on the right for over one year. Pain is stabbing, intermittent. She has treated with Tylenol, NSAID's, deep tissue massage and chiropractor with minimal and temporary relief. Denies bowel/bladder dysfunction, numbness, tingling, leg pain, leg weakness, fever, saddle anesthesia, unintentional weight loss, history of cancer. She has osteoporosis treated with Prolia injections, last bone density showing statistical increase in all areas. BP 134/78 Pulse 88 Resp 12 Ht 154.3 cm (5' 0.75) Wt 75.8 kg (167 lb) SpO2 96% BMI 31.81 kg/m Physical Exam Vitals reviewed. Constitutional: Appearance: Normal appearance. She is not ill-appearing. Musculoskeletal: Thoracic back: Tenderness (right thoracic muscles below scapula) present. No swelling, deformity or bony tenderness. Normal range of motion (painless). Lumbar back: No deformity, tenderness or bony tenderness. Normal range of motion. Neurological: Mental Status: She is alert. ASSESSMENT/PLAN: 1. Medicare annual wellness visit, subsequent - ICD9: V70.0, ICD10: Z00.00 (primary diagnosis) See Medicare Wellness plan 2. Chronic right-sided back pain, unspecified back location - ICD9: 724.5, 338.29, ICD10: M54.9, G89.29 Chronic pain, no improvement with conservative treatment - XR THORACIC GENERAL 3V AP/LAT/SWIMMERS - referral to pain management and/or PT depending on results of x-ray 3. Colon cancer screening - ICD9: V76.51, ICD10: Z12.11 - CONSULT TO GENERAL SURGERY Jasmyn Fonseca APRN.PAULA documented in this encounter [facility] 09-13-2022 Miscellaneous Notes Prolia injection is scheduled, 03/09/2023. Damaris Means LPN Left message to call office. 09/03/2022 10:11 AM Please call patient to schedule nurse visit for Prolia injection Jasmyn Fonseca APRN.PAULA documented in this encounter [facility] 09-07-2022 History of Presen t illness Narrative Patient presents for Prolia injection. Denies any problems at this time. Brought own medication. Patient instructed on any SE of medication, verbalized understanding and agreed to proceed with treatment. Tolerated injection well. Joya Keys LPN documented in this encounter [facility] 07-07-2022 Miscellaneous Notes Patient has been identified by name and date of : Yes Patient phones for refill(s): Requested Prescriptions Pending Prescriptions Disp Refills amLODIPine (NORVASC) 5 mg tablet 90 tablet 3 Sig: Take 1 tablet by mouth once daily. Date of last office visit in primary care: 01/15/2022 10 month follow-up: 07/23/2022 Last 2 Encounter Wt Readings: Date: Wt: 01/15/2022 75.8 kg (167 lb) 11/27/2021 75.3 kg (166 lb) Previous labs/tests for medication: Blood Pressure: BUN (mg/dL) Date Value 01/15/2022 15 01/08/2021 12 Sodium (mmol/L) Date Value 01/15/2022 142 01/08/2021 140 Last 1 Encounter BP Readings: Date: BP: 01/15/2022 130/76 Please advise. Thank you. Damaris Means LPN Patient has been identified by name and date of : Yes Requested Prescriptions Pending Prescriptions Disp Refills amLODIPine (NORVASC) 5 mg tablet 90 tablet 3 Sig: Take 1 tablet by mouth once daily. RX INSTRUCTIONS: She is out of medication and needs this sent today, please. Patient aware RX will be sent to pharmacy. No need to notify patient. Pratibha Garcia documented in this encounter [facility] 01-26-2022 Miscellaneous Notes January 26, 2022 PID: [id number] Mulu Brown [address] [place] [address] Dear Ms. Brown, We are pleased to inform you that the results of your recent breast imaging exam on 01/26/2022 are normal. Early detection of cancer is very important. We also understand recommendations regarding breast cancer screening are controversial. Please discuss with your primary care provider which strategy is best for you and whether a mammogram is right for you. Your imaging studies and report will be kept on file at [facility] as part of your permanent medical record and are available for your continuing care. Thank you for allowing us to help in meeting your health care needs. Sincerely, Dr. Rachel Interpreting Radiologist [facility] (Normal over 40) documented in this encounter [facility] 01-15-2022 Instructions Jasmyn Fonseca APRN.PAULA - 01/15/2022 3:34 PM EDT Screening schedule The following prevention plan is recommended: There are no preventive care reminders to display for this patient. WHAT YOU CAN DO TO PREVENT FALLS Many falls can be prevented. By making some changes, you can lower your chances of falling. Four things YOU can do to prevent falls for you* and your caregiver 1. Begin a regular exercise program Exercise is one of the most important ways to lower your chances of falling. It makes you stronger and helps you feel better. Exercises that improve balance and coordination (like León Chi) are the most helpful. Lack of exercise leads to weakness and increases your chances of falling. Ask your doctor or health care provider about the best type of exercise program for you. 2. Have your health care provider review your medicines Have your doctor or pharmacist review all the medicines you take, even [id number]-[id number] medicines. As you get older, the way medicines work in your body can change. Some medicines, or combinations of medicines, can make you sleepy or dizzy and can cause you to fall. 3. Have your vision checked Have your eyes checked by an eye doctor at least once a year. You may be wearing the wrong glasses or have a condition like glaucoma or cataracts that limits your vision. Poor vision can increase your chances of falling. 4. Make your home safer About half of all falls happen at home. To make your home safer: Remove things you can trip over (like papers, books, clothes, and shoes) from stairs and places where you walk. Remove small throw rugs or use double-sided tape to keep the rugs from slipping. Keep items you use often in cabinets you can reach easily without using a step stool. Have grab bars put in next to your toilet and in the tub or shower. Use non-slip mats in the bathtub and on shower floors. Improve the lighting in your home. As you get older, you need brighter lights to see well. Hang light-weight curtains or shades to reduce glare. Have handrails and lights put in on all staircases. Wear shoes both inside and outside the house. Avoid going barefoot or wearing slippers. For more information, contact: Centers for Disease Control and Prevention www.cdc.gov/injury * This information may not apply if you have certain medical conditions. documented in this encounter [facility] 01-15-2022 History of Presen t illness Narrative Medicare Yearly Visit Medical B eligibilty date 2011 Date of last exam NA PAST MEDICAL HISTORY Diagnosis Date Acrochordon 02/25/[address] Tran, dermatology every 2 years. Age-related osteoporosis without current pathological fracture 08/27/2018 Arthritis of shoulder region, right 01/14/2014 BMI 30.0-30.9,adult 07/21/2015 Carpal tunnel syndrome left hand [facility] arthritis 01/14/2014 Fracture of right wrist 01/11/2002 extensor tendon rupture Hyperlipidemia 04/21/2007 Localized osteoarthrosis not specified whether primary or secondary, unspecified site Other and unspecified hyperlipidemia Rhinitis, non-allergic 02/25/2016 Unspecified vitamin D deficiency 11/08/2007 PAST SURGICAL HISTORY Procedure Laterality Date ARTHROPLASTY TOTAL SHOULDER Right 12/08/2016 Dr. Aldana DELIVERY ONLY 1982 , low cervical COLONOSCOPY FLX DX W/COLLJ SPEC WHEN PFRMD 08/07/2007 Colonoscopy COLONOSCOPY FLX DX W/COLLJ SPEC WHEN PFRMD 12/13/2017 adenomatous polyp, repeat in 5 years PAST SURGICAL HISTORY OF Right 01/11/2002 RIGHT THUMB EXTENSOR TENDON REPAIR ALLERGIES: Fosamax [Alendronate Sodium], Lipitor [Atorvastatin Calcium], and Sulfa (Sulfonamide Antibiotics) Medications reviewed: Yes FAMILY HISTORY Problem Relation Age of Onset Stroke Mother mini stroke 2004 Cancer Father lung/LUNG Hypertension Brother Kidney Disease Brother Heart Maternal Aunt DC other (pulmonary embolus) Paternal Grandmother SOCIAL HISTORY: Social History Tobacco Use Smoking status: Never Smokeless tobacco: Never Vaping Use Vaping Use: Never used Substance Use Topics Alcohol use: Yes Alcohol/week: 7.5 standard drinks Types: 3 Glasses of Wine (5oz) per week Comment: wine-occasional Drug use: No Mulu likes to exercise by doing yoga 3 days a week. She watches her diet for sodium, low fat and low cholesterol most of the time. List of current specialists seen: Oral surgeon- Dr. Casas Negative Assembler- [facility] End of Live Planning discussed including patients advanced directive wishes: Yes I am willing to follow Mulu's advanced directives. Evidence of Cognitive Impairment: No What tool was used to assess the patients cognitive status? MiniCog 5/. PHQ-2 / Depression screen She in the past two weeks denies having felt down, depressed, hopeless, or with little interest or pleasure in doing things. Functional Ability/Safety Screen 1. Was the patient's timed Up and Go test unsteady or longer than 30 seconds? No 2. Does the patient need help with the phone, transportation, shopping,preparing meals, housework, laundry, medications or managing money? No 3. Does your home have rugs in the hallway, lack of grab bars in the bathroom, lack of handrails on the stairs or have poor lighting? No Hearing Evaluation: normal PHYSICAL EXAM BP 130/76 Pulse 82 Resp 20 Ht 153.7 cm (5' 0.5) Wt 75.8 kg (167 lb) BMI 32.08 kg/m Alert and oriented X 3: YES Body mass index is 32.08 kg/m . ASSESSMENT/PLAN: 1. Medicare annual wellness visit, subsequent - ICD9: V70.0, ICD10: Z00.00 (primary diagnosis) The following prevention plan was discussed during the office visit and provided to the patient: - fall risk reduction - Counseled on healthy diet and regular exercise - Calcium intake with supplements or by diet of 1000 mg/day for under 50, 4284-3503 mg/day for 50+ - Discussed need and benefit for weight loss. BMI 32.08 kg/(m^2) - Depression screening tool completed and reviewed with patient. Based on score and interview, patient is not at risk for depression and recommended no further intervention at this time. - follow-up for medicare annual exam in one year 2. Encounter for screening mammogram for malignant neoplasm of breast - ICD9: V76.12, ICD10: Z12.31 - SVITLANA SCREENING 3. Hyperlipidemia, unspecified hyperlipidemia type - ICD9: 272.4, ICD10: E78.5 - COMP METABOLIC PANEL Jasmyn Fonseca APRN.CNP documented in this encounter [facility] 11-27-2021 History of Presen t illness Narrative CC: Patient presents with: [facility] care follow up: 11-05 hematuria HPI Mulu Brown is a 76 year old female who presents today for above. Patient was seen in urgent care on 11/05 for urinary frequency and mild vaginal itching. Urine dip showed trace blood only. No antibiotics initiated, urine culture was negative. Advised to use Monistat OTC for possible yeast infection. Today patient reports urinary frequency has improved. Vaginal itching has resolved with Monistat. She is concerned because her urine was pink tinged when she wiped and home test showed blood. Patient denies back, flank or abdominal pain, dysuria, urgency, frequency, hesitancy, malaise, fatigue, fever, chills, nausea, vomiting, abnormal vaginal discharge or bleeding. She is staying hydrated. No history of smoking. BP is elevated today. She has a history of hypertension, BP is always elevated in the office. Checked this morning and was 125/72. Denies headaches, chest pain, palpitations, edema, SOB REVIEW OF SYSTEMS See HPI PAST MEDICAL HISTORY Diagnosis Date Acrochordon 02/25/[address] Tran, dermatology every 2 years. Age-related osteoporosis without current pathological fracture 08/27/2018 Arthritis of shoulder region, right 01/14/2014 BMI 30.0-30.9,adult 07/21/2015 Carpal tunnel syndrome left hand CMC arthritis 01/14/2014 Fracture of right wrist 01/11/2002 extensor tendon rupture Hyperlipidemia 04/21/2007 Localized osteoarthrosis not specified whether primary or secondary, unspecified site Other and unspecified hyperlipidemia Rhinitis, non-allergic 02/25/2016 Unspecified vitamin D deficiency 11/08/2007 PAST SURGICAL HISTORY Procedure Laterality Date ARTHROPLASTY TOTAL SHOULDER Right 12/08/2016 Dr. Aldana DELIVERY ONLY 1982 , low cervical COLONOSCOPY FLX DX W/COLLJ SPEC WHEN PFRMD 08/07/2007 Colonoscopy COLONOSCOPY FLX DX W/COLLJ SPEC WHEN PFRMD 12/13/2017 adenomatous polyp, repeat in 5 years PAST SURGICAL HISTORY OF Right 01/11/2002 RIGHT THUMB EXTENSOR TENDON REPAIR ALLERGIES Fosamax [Alendronate Sodium], Lipitor [Atorvastatin Calcium], and Sulfa (Sulfonamide Antibiotics) MEDICATIONS amLODIPine (NORVASC) 5 mg tablet Take 1 tablet by mouth once daily. rosuvastatin (CRESTOR) 10 mg tablet Take 1 tablet by mouth three times a week. triamcinolone acetonide (KENALOG) 0.1 % cream Apply to affected area. APPLY TO RASH BID NEEDED Biotin 10,000 mcg cap Take 1 capsule by mouth once daily. COMPOUNDED PRESCRIPTION Take 1 capsule by mouth once daily. Q [facility]-Dr. Coleman fluticasone (FLONASE) 50 mcg/actuation nasal spray Use 2 Sprays in each nostril once daily. Rinse mouth after use. Cholecalciferol, Vitamin D3, 5,000 unit Tab Take 1 tablet by mouth once daily. FOLIC ACID 400 MCG TAB Take one(1) tablet daily. FAMILY HISTORY Problem Relation Age of Onset Stroke Mother mini stroke 2004 Cancer Father lung/LUNG Hypertension Brother Kidney Disease Brother Heart Maternal Aunt DC other (pulmonary embolus) Paternal Grandmother Social History Tobacco Use Smoking status: Never Smokeless tobacco: Never Vaping Use Vaping Use: Never used Substance Use Topics Alcohol use: Yes Alcohol/week: 7.5 standard drinks Types: 3 Glasses of Wine (5oz) per week Comment: wine-occasional Drug use: No PHYSICAL EXAM BP 176/84 Pulse 104 Resp 16 Wt 75.3 kg (166 lb) BMI 31.37 kg/m General Appearance: well appearing, in no acute distress, alert Lungs: Lungs clear to auscultation. No wheezing, rhonchi, rales. Heart: RRR without murmur, gallop, or rubs. No ectopy Abdomen: Abdomen soft, non-tender. Bowel sounds normal. No masses, organomegaly, Negative CVA tenderness Health maintenance reviewed with patient: BP CONTROLLED (<130/80) Never done ADVANCE DIRECTIVE DISCUSSION Never done INFLUENZA(1) due on 12/03/2021 DEPRESSION SCREENING due on 01/12/2022 ANNUAL PCP TEAM CHRONIC DISEASE VISIT due on 09/15/2022 COLORECTAL CANCER SCREENING due on 12/13/2022 DIABETES SCREEN due on 01/09/2024 LIPID SCREEN due on 09/29/2026 DTAP,TDAP,TD(3 - Td or Tdap) due on 07/27/2027 BONE DENSITY Completed HEPATITIS C SCREENING Completed SHINGRIX VACCINE Completed COVID-19 VACCINE Completed PNEUMOCOCCAL: 65+ Completed DATA REVIEWED: Most recent labs Most recent urine ASSESSMENT/PLAN: 1. Hematuria, unspecified type - ICD9: 599.70, ICD10: R31.9 (primary diagnosis) Asymptomatic hematuria. - UA DIP B/O showing trace intact blood and trace leuks - repeat URINE CULTURE - will also check URINALYSIS, WITH MICROSCOPIC. If positive for hematuria and urine culture negative will check labs and refer to urology 2. Primary hypertension - ICD9: 401.9, ICD10: I10 - elevated today, known white coat hypertension and home BP readings less than 130/80 on average. - Continue current medication(s) Prescription instructions reviewed with patient as applicable. Potential red flag symptoms discussed with the patient. Reviewed appropriate action plan to take if red flag symptoms occur. Patient agreeable to treatment plan. Jasmyn Fonseca APRN.CNP documented in this encounter [facility] 11-06-2021 Miscellaneous Notes Phone call placed patient advised (see prior provider encounter) Patient verbalized understanding, agreed with plan of care. Odilia Leon LPN Urine culture did not show an infection. I recommend repeating urine to recheck for blood (has follow up with Internal medicine in January). documented in this encounter [facility] 11-05-2021 History of Presen t illness Narrative Subjective HPI Nontoxic-appearing female presents urgent care chief complaint urinary frequency. Duration symptoms 2 weeks. Associated symptoms urinary frequency and some vaginal itching. States she has had UTIs this feels slightly different. She does not have any dysuria. Denies any OTC medications. Denies any fever body aches chills nausea vomiting abdominal pain dysuria flank pain or urological abnormalities. Past medical history prescription medication use allergies reviewed. .Patient presents with: Urinary Frequency: x2 weeks PAST MEDICAL HISTORY Diagnosis Date Acrochordon 02/25/[address] Tran, dermatology every 2 years. Age-related osteoporosis without current pathological fracture 08/27/2018 Arthritis of shoulder region, right 01/14/2014 BMI 30.0-30.9,adult 07/21/2015 Carpal tunnel syndrome left hand CMC arthritis 01/14/2014 Fracture of right wrist 01/11/2002 extensor tendon rupture Hyperlipidemia 04/21/2007 Localized osteoarthrosis not specified whether primary or secondary, unspecified site Other and unspecified hyperlipidemia Rhinitis, non-allergic 02/25/2016 Unspecified vitamin D deficiency 11/08/2007 PAST SURGICAL HISTORY Procedure Laterality Date ARTHROPLASTY TOTAL SHOULDER Right 12/08/2016 Dr. Aldana DELIVERY ONLY 1982 , low cervical COLONOSCOPY FLX DX W/COLLJ SPEC WHEN PFRMD 08/07/2007 Colonoscopy COLONOSCOPY FLX DX W/COLLJ SPEC WHEN PFRMD 12/13/2017 adenomatous polyp, repeat in 5 years PAST SURGICAL HISTORY OF Right 01/11/2002 RIGHT THUMB EXTENSOR TENDON REPAIR ALLERGIES Fosamax [Alendronate Sodium], Lipitor [Atorvastatin Calcium], and Sulfa (Sulfonamide Antibiotics) MEDICATIONS amLODIPine (NORVASC) 5 mg tablet Take 1 tablet by mouth once daily. rosuvastatin (CRESTOR) 10 mg tablet Take 1 tablet by mouth three times a week. triamcinolone acetonide (KENALOG) 0.1 % cream Apply to affected area. APPLY TO RASH BID NEEDED Biotin 10,000 mcg cap Take 1 capsule by mouth once daily. COMPOUNDED PRESCRIPTION Take 1 capsule by mouth once daily. Suze Coleman fluticasone (FLONASE) 50 mcg/actuation nasal spray Use 2 Sprays in each nostril once daily. Rinse mouth after use. Cholecalciferol, Vitamin D3, 5,000 unit Tab Take 1 tablet by mouth once daily. FOLIC ACID 400 MCG TAB Take one(1) tablet daily. FAMILY HISTORY Problem Relation Age of Onset Stroke Mother mini stroke 2005 Cancer Father lung/LUNG Hypertension Brother Kidney Disease Brother Heart Maternal Aunt DC other (pulmonary embolus) Paternal Grandmother Social History Tobacco Use Smoking status: Never Smoker Smokeless tobacco: Never Used Vaping Use Vaping Use: Never used Substance Use Topics Alcohol use: Yes Alcohol/week: 7.5 standard drinks Types: 3 Glasses of Wine (5oz) per week Comment: wine-occasional Drug use: No BP 150/82 Pulse 94 Temp 36.7 C (98.1 F) Resp 20 Wt 75.8 kg (167 lb 3.2 oz) SpO2 96% BMI 31.59 kg/m Review of Systems Constitutional: Negative for chills, fever and malaise/fatigue. HENT: Negative for congestion, ear discharge, ear pain, sinus pain and sore throat. Eyes: Negative for blurred vision, pain, discharge and redness. Respiratory: Negative for cough, hemoptysis, sputum production, shortness of breath, wheezing and stridor. Cardiovascular: Negative for chest pain. Gastrointestinal: Negative for abdominal pain, diarrhea, nausea and vomiting. Genitourinary: Positive for frequency. Negative for dysuria, flank pain, hematuria and urgency. Musculoskeletal: Negative for myalgias. Skin: Negative for itching and rash. Neurological: Negative for dizziness and headaches. Objective Physical Exam Constitutional: General: She is not in acute distress. Appearance: She is not diaphoretic. HENT: Head: Normocephalic. Eyes: Conjunctiva/sclera: Conjunctivae normal. Pupils: Pupils are equal, round, and reactive to light. Cardiovascular: Rate and Rhythm: Normal rate and regular rhythm. Heart sounds: Normal heart sounds. Pulmonary: Effort: Pulmonary effort is normal. No tachypnea, accessory muscle usage or respiratory distress. Breath sounds: Normal breath sounds. No stridor. Abdominal: General: There is no distension. Palpations: Abdomen is soft. Tenderness: There is no abdominal tenderness. There is no right CVA tenderness, left CVA tenderness, guarding or rebound. Musculoskeletal: Cervical back: Normal range of motion and neck supple. No rigidity or tenderness. Lymphadenopathy: Cervical: No cervical adenopathy. Skin: General: Skin is warm and dry. Neurological: Mental Status: She is alert and oriented to person, place, and time. ASSESSMENT/PLAN: 1. Urinary frequency - ICD9: 788.41, ICD10: R35.0 - UA DIP, URINE (POC) - URINE CULTURE Urine dip indicated trace amount of blood. Urine culture ordered. No antibiotics at today's visit. We discussed trying Monistat. Supportive therapies discussed. Patient was educated on supportive therapies. Patient will follow up with primary care provider 5 to 7 days for repeat urinalysis. Patient was instructed to immediately proceed to emergency room for any new, worsening, or symptoms lasting longer than anticipated. The patient's clinical presentation is otherwise unremarkable at this time. Based on exam and clinical finding, the patient is stable for discharge. Plan of care was discussed with patient. Patient verbalizes understanding and agrees to plan of care. This note was generated using [employer] software. It may contain errors in wording, punctuation, or spelling. Jameel Daley APRN.PAULA documented in this encounter [facility] 09-15-2021 History of Presen t illness Narrative This note was created using [employer]. Subjective Mulu Brown is a 76 year old female. She had side effects from Crestor so she reduced to 3 times per week around May. Her hypertension was controlled. She complained of migrating joint pains, right ankle, fingers, elbows. No swelling or stiffness was noted. Other joint pains in the hands were chronic. Tylenol was taken if at all. She needed a root canal, but Dr. Casas did not want to proceed until close to 6 months from her Prolia dose on June. Review of Systems Constitutional: Negative. Respiratory: Negative. Cardiovascular: Negative. Gastrointestinal: Negative. Genitourinary: Negative. Musculoskeletal: Positive for arthralgias. Neurological: Negative. ACTIVE PROBLEM LIST Hyperlipidemia Cmc Arthritis Age-Related Osteoporosis Without Current Pathological Fracture Bmi 30.0-30.9,Adult Rhinitis, Non-Allergic Acrochordon Contact Dermatitis Hypertension Current Outpatient Medications Medication Sig amLODIPine (NORVASC) 5 mg tablet Take 1 tablet by mouth once daily. rosuvastatin (CRESTOR) 10 mg tablet Take 1 tablet by mouth three times a week. triamcinolone acetonide (KENALOG) 0.1 % cream Apply to affected area. APPLY TO RASH BID NEEDED Biotin 10,000 mcg cap Take 1 capsule by mouth once daily. COMPOUNDED PRESCRIPTION Take 1 capsule by mouth once daily. Q [place] [facility]- [place] fluticasone (FLONASE) 50 mcg/actuation nasal spray Use 2 Sprays in each nostril once daily. Rinse mouth after use. Cholecalciferol, Vitamin D3, 5,000 unit Tab Take 1 tablet by mouth once daily. FOLIC ACID 400 MCG TAB Take one(1) tablet daily. No current facility-administered medications for this visit. Objective BP 126/77 (BP Site: Left Arm, BP Position: Sitting, BP Cuff Size: Large Adult) Pulse 68 Temp 36.4 C (97.6 F) (Temporal Artery) Resp 16 Wt 74.8 kg (165 lb) BMI 31.18 kg/m Physical Exam Constitutional: Appearance: Normal appearance. She is not ill-appearing. Cardiovascular: Rate and Rhythm: Normal rate and regular rhythm. Heart sounds: No murmur heard. No gallop. Pulmonary: Effort: Pulmonary effort is normal. Breath sounds: Normal breath sounds. Abdominal: Tenderness: There is no abdominal tenderness. Musculoskeletal: General: No swelling or tenderness. Right lower leg: No edema. Left lower leg: No edema. Neurological: Mental Status: She is alert. Assessment and Plan 1. Age-related osteoporosis without current pathological fracture - ICD9: 733.01, ICD10: M81.0 (primary diagnosis) Hold PROLIA until next June due to major oral surgery. We discussed potential risk of osteonecrosis of the jaw. 2. Primary hypertension - ICD9: 401.9, ICD10: I10 - good control - Continue current medication(s) - Recommended regular aerobic exercise. - Recommend home blood pressure monitoring, to bring results in on next visit - Goal of BP <130/80 3. Hyperlipidemia, unspecified hyperlipidemia type - ICD9: 272.4, ICD10: E78.5 - to be determined upon return of lab results - Continue current medication. - LIPID PANEL BASIC 4. CMC arthritis - ICD9: 716.94, ICD10: M19.049 Stable. 5. Multiple joint pain - ICD9: 719.49, ICD10: M25.50 Check for inflammatory indicators. I suspect this is still osteoarthritis. - SED RATE WESTERGREN - C-REACTIVE PROTEIN (CRP) Wilbert Villarreal MD documented in this encounter [facility] 07-02-2021 History of Presen t illness Narrative POPULATION HEALTH NAVIGATION OUTREACH Action/FYI: [employer] Care Gaps Discuss/Due: Advance Directives, Screening Mammogram due 01/21/22 or after Outcome: Left voice mail and sent OffiSynchart message Pt identified by name and : NO Outreach Outcome/Action Unable to reach patient: Left message MyChart message sent Reason for Outreach Care Gap or Scheduling/Wellness visits Payer: Payor: [employer] MEDICARE / Plan: [employer] MEDICARE PPO / Product Type: PPO / Care Gap Reviewed:: Breast Cancer screening Reminder: Reminder note to check Health Maintenance for items below Health Maintenance items due: ADVANCE DIRECTIVE DISCUSSION Never done Message Sent to Practice: No Navigation Signature: Minal Garcia July 02, 2021 1:25 PM documented in this encounter [facility] 06-30-2021 History of Presen t illness Narrative Patient presents for Prolia injection. Denies any problems at this time. Brought own medication.Patient instructed on any SE of medication, verbalized understanding and agreed to proceed with treatment. Tolerated injection well. Joya Keys LPN documented in this encounter [facility] 06-23-2021 Miscellaneous Notes Patient has been identified by name and date of : Yes Patient phones for refill(s): Pending Prescriptions Disp Refills PROLIA 60 MG/ML SUBCUTANEOUS SYRINGE 1 mL 0 Sig: Inject 1 mL subcutaneously one time only for 1 dose. MORGAN: No Date of last office visit in primary care: 03/18/2021 6 month follow-up: 09/15/2021 Last 2 Encounter Wt Readings: Date: Wt: 03/18/2021 76.2 kg (168 lb) 02/16/2021 75.3 kg (166 lb) Previous labs/tests for medication: Not applicable Please advise. Thank you. Damaris Means LPN Patient has been identified by name and date of : Yes Pending Prescriptions Disp Refills ZOLEDRONIC ACID 5 MG/100 ML IN MANNITOL 5 %-WATER INTRAVENOUS PIGGYBCK 100 mL 0 Sig: Inject 100 mL intravenously one time only for 1 dose. RX INSTRUCTIONS: has shot appointment 06/30 Patient aware RX will be sent to pharmacy. No need to notify patient. Yvonne Garcia documented in this encounter [facility] 01-14-2014 History of Past i llness Narrative Problem Noted Date Resolved Date Arthritis of shoulder region, right 01/14/2014 07/27/2018 Vitamin D deficiency 11/08/2007 08/24/2016 Carpal tunnel syndrome 05/27/2005 7 documented as of this encounter (statuses as of 06/23/2021) [facility] History of Past illness Narrative* Problem Noted Date Resolved Date Arthritis of shoulder region, right 01/14/2014 07/27/2018 Vitamin D deficiency 11/08/2007 08/24/2016 Carpal tunnel syndrome 05/27/2005 7 documented as of this encounter (statuses as of 06/30/2021) [facility] History of Past illness Narrative* Problem Noted Date Resolved Date Arthritis of shoulder region, right 01/14/2014 07/27/2018 Vitamin D deficiency 11/08/2007 08/24/2016 Carpal tunnel syndrome 05/27/2005 7 documented as of this encounter (statuses as of 07/02/2021) [facility] History of Past illness Narrative* Problem Noted Date Resolved Date Arthritis of shoulder region, right 01/14/2014 07/27/2018 Vitamin D deficiency 11/08/2007 08/24/2016 Carpal tunnel syndrome 05/27/2005 7 documented as of this encounter (statuses as of 09/16/2021) [facility] History of Past illness Narrative* Problem Noted Date Resolved Date Arthritis of shoulder region, right 01/14/2014 07/27/2018 Vitamin D deficiency 11/08/2007 08/24/2016 Carpal tunnel syndrome 05/27/2005 7 documented as of this encounter (statuses as of 11/05/2021) [facility] History of Past illness Narrative* Problem Noted Date Resolved Date Arthritis of shoulder region, right 01/14/2014 07/27/2018 Vitamin D deficiency 11/08/2007 08/24/2016 Carpal tunnel syndrome 05/27/2005 7 documented as of this encounter (statuses as of 11/06/2021) [facility] of Past illness Narrative* Problem Noted Date Resolved Date Arthritis of shoulder region, right 01/14/2014 07/27/2018 Vitamin D deficiency 11/08/2007 08/24/2016 Carpal tunnel syndrome 05/27/2005 7 documented as of this encounter (statuses as of 11/27/2021) [facility] of Past illness Narrative* Problem Noted Date Resolved Date Arthritis of shoulder region, right 01/14/2014 07/27/2018 Vitamin D deficiency 11/08/2007 08/24/2016 Carpal tunnel syndrome 05/27/2005 7 documented as of this encounter (statuses as of 12/23/2021) [facility] History of Past illness Narrative* Problem Noted Date Resolved Date Arthritis of shoulder region, right 01/14/2014 07/27/2018 Vitamin D deficiency 11/08/2007 08/24/2016 Carpal tunnel syndrome 05/27/2005 7 documented as of this encounter (statuses as of 01/15/2022) [facility] of Past illness Narrative* Problem Noted Date Resolved Date Arthritis of shoulder region, right 01/14/2014 07/27/2018 Vitamin D deficiency 11/08/2007 08/24/2016 Carpal tunnel syndrome 05/27/2005 7 documented as of this encounter (statuses as of 01/28/2022) [facility] of Past illness Narrative* Problem Noted Date Resolved Date Arthritis of shoulder region, right 01/14/2014 07/27/2018 Vitamin D deficiency 11/08/2007 08/24/2016 Carpal tunnel syndrome 05/27/2005 7 documented as of this encounter (statuses as of 07/07/2022) [facility] of [facility] illness Narrative* Problem Noted Date Resolved Date Arthritis of shoulder region, right 01/14/2014 07/27/2018 Vitamin D deficiency 11/08/2007 08/24/2016 Carpal tunnel syndrome 05/27/2005 7 documented as of this encounter (statuses as of 08/17/2022) [facility] of [facility] illness Narrative* Problem Noted Date Resolved Date Arthritis of shoulder region, right 01/14/2014 07/27/2018 Vitamin D deficiency 11/08/2007 08/24/2016 Carpal tunnel syndrome 05/27/2005 7 documented as of this encounter (statuses as of 09/07/2022) [facility] of [facility] illness Narrative* Problem Noted Date Resolved Date Arthritis of shoulder region, right 01/14/2014 07/27/2018 Vitamin D deficiency 11/08/2007 08/24/2016 Carpal tunnel syndrome 05/27/2005 7 documented as of this encounter (statuses as of 09/13/2022) [facility] of Past illness Narrative* Problem Noted Date Diagnosed Date Resolved Date Arthritis of shoulder region, right 01/14/2014 07/27/2018 Vitamin D deficiency 11/08/2007 017 Carpal tunnel syndrome 05/27/200508/24 documented as of this encounter (statuses as of 01/24/2023) [facility] History of Past illness Narrative* Problem Noted Date Diagnosed Date Resolved Date Arthritis of shoulder region, right 01/14/2014 07/27/2018 Vitamin D deficiency 11/08/2007 017 Carpal tunnel syndrome 05/27/200508/24 documented as of this encounter (statuses as of 02/06/2023) [facility] of [facility] Narrative* Problem Noted Date Diagnosed Date Resolved Date Arthritis of shoulder region, right 01/14/2014 07/27/2018 Vitamin D deficiency 11/08/2007 017 Carpal tunnel syndrome 05/27/200508/24 documented as of this encounter (statuses as of 03/01/2023) [facility] of [facility] Narrative* Problem Noted Date Diagnosed Date Resolved Date Arthritis of shoulder region, right 01/14/2014 07/27/2018 Vitamin D deficiency 11/08/2007 017 Carpal tunnel syndrome 05/27/200508/24 documented as of this encounter (statuses as of 03/09/2023) [facility] Diagnosis Age-related osteoporosis without current pathological fracture- Primary Senile osteoporosis [facility] Diagnosis Age-related osteoporosis without current pathological fracture- Primary Senile osteoporosis Primary hypertension Unspecified essential hypertension Hyperlipidemia, unspecified hyperlipidemia type CMC arthritis Unspecified arthropathy, hand Multiple joint pain Pain in joint, multiple sites [facility] Diagnosis Urinary frequency- Primary [facility] Diagnosis Hematuria, unspecified type- Primary Primary hypertension Unspecified essential hypertension [facility] Diagnosis Medicare annual wellness visit, subsequent- Primary Routine general medical examination at a health care facility Encounter for screening mammogram for malignant neoplasm of breast Other screening mammogram Hyperlipidemia, unspecified hyperlipidemia type [facility] noteNo assessment information availableWOhioHealth Work Phone: Evaluation note* Diagnosis Age-related osteoporosis without current pathological fracture- Primary Senile osteoporosis [facility] Diagnosis Medicare annual wellness visit, subsequent- Primary Routine general medical examination at a health care facility Chronic right-sided back pain, unspecified back location Colon cancer screening Special screening for malignant neoplasms, colon [facility] Diagnosis Encounter for screening mammogram for malignant neoplasm of breast Other screening mammogram [facility]* Diagnosis Age-related osteoporosis without current pathological fracture- Primary Senile osteoporosis [facility]* Diagnosis Rhinitis, non-allergic- Primary Chronic rhinitis Hyperlipidemia, unspecified hyperlipidemia type Primary hypertension Unspecified essential hypertension Age-related osteoporosis without current pathological fracture Senile osteoporosis Dysfunction of Eustachian tube, unspecified laterality Tubular adenoma of colon Benign neoplasm of colon [facility]* Diagnosis Age-related osteoporosis without current pathological fracture- Primary Senile osteoporosis [facility]* Diagnosis Chronic right-sided back pain, unspecified back location documented in this encounter [facility] note* Diagnosis Medicare annual wellness visit, subsequent- Primary Routine general medical examination at a health care facility Acrochordon Unspecified hypertrophic and atrophic condition of skin Primary hypertension Unspecified essential hypertension Hyperlipidemia, unspecified hyperlipidemia type documented in this encounter [facility] note* Diagnosis Hyperlipidemia, unspecified hyperlipidemia type [facility]* Diagnosis Onset Date Resolution Status Admit Date Left shoulder pain acute September 052024 8:55am Primary osteoarthritis, left shoulder acute September 05, 2024 8 :55am [facility] Work Phone: Evaluation note* Diagnosis Age-related osteoporosis without current pathological fracture Senile osteoporosis documented in this encounter [facility] note* Diagnosis Age-related osteoporosis without current pathological fracture- Primary Senile osteoporosis documented in this encounter [facility] for referral (narrative)* Diagnostic Procedure Only (Routine) - Authorized Specialty Diagnoses / Procedures Referred By Danish t Referred To Contact [facility] Diagnoses Encounter for screening mammogram for malignant neoplasm of breast Procedures SVITLANA SCREENING SCREENING MAMMOGRAPHY BI 2-VIEW BREAST INC Jasmyn Shaffer, CARDIOLOGY TECHNOLOGIST.HEPATOLOGIST [address] [place] [address] [facility] [address] [place] [address] Referral ID Status Reason Start Date Expiration Date Visits Requested Visits Authorized [id number] Authorized Auto-Generat ed Referral 2 02/14/2023 1 1 [facility] for referral (narrative)* Diagnostic Procedure Only (Routine) - Closed Specialty Diagnoses / Procedures Referred By Danish tavares Referred To Contact XR IMAGING Diagnoses Chronic right-sided back pain, unspecified back location Procedures XR THORACIC GENERAL 3V AP/LAT/SWIMMERS RADEX SPINE THORACIC 3 VIEWS Jasmyn Fonseca APRN.CNP [address] [place] [address] [place] [address] Referral ID Status Reason Start Date Expiration Date V isits Requested Visits Authorized [id number] Closed Auto-Generate d Referral 01/24/2023 02/23/2024 1 1 * Consult, Test, Treat (Routine) - Pending Review Specialty Diagnoses / Procedures Referred By Danish tavares Referred To Contact General Surgery Diagnoses Colon cancer screening Procedures CONSULT TO GENERAL SURGERY OFFICE/OUTPATIENT [facility] 60-74 MINUTES Jasmyn Fonseca APRN.CNP [address] [place] [address] Referral ID Status Reason Start Date Expiration Date Visits Requested Visits Authorized [id number] Pending Review PCP Requested Referral 01/24/2024 1 1 [facility] for referral (narrative)* Diagnostic Procedure Only (Routine) - Closed Specialty Diagnoses / Procedures Referred By Danish tavares Referred To Contact BR IMAGING Diagnoses Encounter for screening mammogram for malignant neoplasm of breast Procedures SVITLANA SCREENING SCREENING MAMMOGRAPHY BI 2-VIEW BREAST INC CAD Jasmyn Fonseca APRN.CNP [address] [place] [address] [facility] [address] [place] [address] Referral ID Status Reason Start Date Expiration Date V isits Requested Visits Authorized [id number] Closed Auto-Generate d Referral 01/15/2022 02/14/2023 1 1 [facility] for referral (narrative)* Diagnostic Procedure Only (Routine) - Closed Specialty Diagnoses / Procedures Referred By Contac t Referred To Contact XR IMAGING Diagnoses Chronic right-sided back pain, unspecified back location Procedures XR THORACIC GENERAL 3V AP/LAT/SWIMMERS RADEX SPINE THORACIC 3 VIEWS Jasmyn Mcguire CARDIOLOGY TECHNOLOGIST.HEPATOLOGIST [address] [place] [address] [place] [address] Referral ID Status Reason Start Date Expiration Date V isits Requested Visits Authorized [id number] Closed Auto-Generate d Referral 01/24/2023 02/23/2024 1 1 [facility] for referral (narrative)No reason for referral information [facility]Franc[facility] Work Phone: Reason for visit Narrative* Diagnostic Procedure Only (Routine) - Closed Specialty Diagnoses / Procedures Referred By Contac t Referred To Contact BR IMAGING Diagnoses Encounter for screening mammogram for malignant neoplasm of breast Procedures SVITLANA SCREENING SCREENING MAMMOGRAPHY BI 2-VIEW BREAST INC Jasmyn Shaffer APRN.HEPATOLOGIST [address] [place] [address] [facility] [address] [facility] [address] Referral ID Status Reason Start Date Expiration Date V isits Requested Visits Authorized [id number] Closed Auto-Generate d Referral 01/15/2022 02/14/2023 1 1 [facility] for visit Narrative* Diagnostic Procedure Only (Routine) - Closed Specialty Diagnoses / Procedures Referred By Contac t Referred To Contact XR IMAGING Diagnoses Chronic right-sided back pain, unspecified back location Procedures XR THORACIC GENERAL 3V AP/LAT/SWIMMERS RADEX SPINE THORACIC 3 VIEWS Jasmyn Mcguire CARDIOLOGY TECHNOLOGIST.HEPATOLOGIST [address] [place] [address] [place] [address] Referral ID Status Reason Start Date Expiration Date V isits Requested Visits Authorized [id number] Closed Auto-Generate d Referral 01/24/2023 02/23/2024 1 [facility] Diagnostic Procedure Only (Routine) - Closed Specialty Diagnoses / Procedures Referred By Contwarren t Referred To Contact XR IMAGING Diagnoses Age-related osteoporosis without current pathological fracture Procedures DXA-AXIAL SKELETON DXA BONE DENSITY STUDY / SITES AXIAL Wilbert Bermudez MD [address] [place] [address] Phone: tel: fax: [place] [address] Referral ID Status Reason Start Date Expiration Date V isits Requested Visits Authorized [id number] Closed Auto-Generate d Referral 07/27/2024 08/26/2025 1 1 [facility] Advance Directives No Advanced Directives Records FoundDocuments on File Type Date Recorded 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 Advance Directive(s) Advance Directive(s) 12/13/2017 6:18 AM Advance Directive(s) 01/09/2016 11:56 AM Documents on File Type Date Recorded 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 REFRIGERATE Given 06/30/2021 12:37 PM EDT 60 mg Arm, Left Given 12/31/2020 9:11 AM EDT 60 mg Ar m, Right Active Administered Medications - up to 3 most recent administrations Medication Order MAR Action Action Date Dose Rate Site denosumab 60 mg injection (PROLIA) 60 mg, SUBCUTANEOUS, EVERY 6 MONTHS, 2 doses, First dose on Tu09/07/22 at 0000, Last dose on 03/06/23 at 0000, Allow To Come To Room Temperature Before Administration. REFRIGERATE Given 09/07/2022 1:22 PM EDT 60 mg Arm, Left Inactive Administered Medications - up to 3 most recent administrations Medication Order MAR Action Action Date Dose Rate Site denosumab 60 mg injection (PROLIA) 60 mg, SUBCUTANEOUS, EVERY 6 MONTHS, 2 doses, First dose on 09/07/22 at 0000, Last dose on 03/06/23 at 0000, Allow To Come To Room Temperature Before Administration. REFRIGERATE Given 03/09/2023 11:16 AM EST 60 mg Arm, Right Given 09/07/2022 1:22 PM EDT 60 mg Ar m, Left Reason for Referral Specialty Diagnoses / Procedures Referred By Danish tavares Referred To Contact Jasmyn Mcguire, CARDIOLOGY TECHNOLOGIST.HEPATOLOGIST [address] [place] [address] Referral ID Status Reason Start Date Expiration Date V isits Requested Visits Authorized [id number] Authorized 04/04/2023 04/03/2024 1 1 Chief Complaint and Reason for Visit Chief Complaint Admit Date SHOULDER RX HERE August 21, 2024 12:30 pm LEFT SHOULDER September 05, 2024 8:55a m Reason for Visit Admit Date Left shoulder pain September 05, 2024 8:55a m Primary osteoarthritis, left shoulder Ju 2024 8:55am Summary Purpose Family History No Family History Records FoundNo Family History Records Found Additional Source Comments Source Comments (unrecognize d section and content) In the event this informatio n is protected by the Federal Confidentiality of Alcohol and Drug Abuse Patient Records regulations: The Federal rules restrict any use of the information to criminally investigate or prosecute any alcohol or drug abuse patient.[facility] the event this information is protected by the Federal Confidentiality of Alcohol and Drug Abuse Patient Records regulations: The Federal rules restrict any use of the information to criminally investigate or prosecute any alcohol or drug abuse patient.[facility] the event this information is protected by the Federal Confidentiality of Alcohol and Drug Abuse Patient Records regulations: The Federal rules restrict any use of the information to criminally investigate or prosecute any alcohol or drug abuse patient.[facility] the event this information is protected by the Federal Confidentiality of Alcohol and Drug Abuse Patient Records regulations: The Federal rules restrict any use of the information to criminally investigate or prosecute any alcohol or drug abuse patient.[facility] the event this information is protected by the Federal Confidentiality of Alcohol and Drug Abuse Patient Records regulations: The Federal rules restrict any use of the information to criminally investigate or prosecute any alcohol or drug abuse patient.[facility] the event this information is protected by the Federal Confidentiality of Alcohol and Drug Abuse Patient Records regulations: The Federal rules restrict any use of the information to criminally investigate or prosecute any alcohol or drug abuse patient.[facility] the event this information is protected by the Federal Confidentiality of Alcohol and Drug Abuse Patient Records regulations: The Federal rules restrict any use of the information to criminally investigate or prosecute any alcohol or drug abuse patient.[facility] the event this information is protected by the Federal Confidentiality of Alcohol and Drug Abuse Patient Records regulations: The Federal rules restrict any use of the information to criminally investigate or prosecute any alcohol or drug abuse patient.[facility] the event this information is protected by the Federal Confidentiality of Alcohol and Drug Abuse Patient Records regulations: The Federal rules restrict any use of the information to criminally investigate or prosecute any alcohol or drug abuse patient.[facility]In the event this information is protected by the Federal Confidentiality of Alcohol and Drug Abuse Patient Records regulations: The Federal rules restrict any use of the information to criminally investigate or prosecute any alcohol or drug abuse patient.[facility] the event this information is protected by the Federal Confidentiality of Alcohol and Drug Abuse Patient Records regulations: The Federal rules restrict any use of the information to criminally investigate or prosecute any alcohol or drug abuse patient.[facility] the event this information is protected by the Federal Confidentiality of Alcohol and Drug Abuse Patient Records regulations: The Federal rules restrict any use of the information to criminally investigate or prosecute any alcohol or drug abuse patient.[facility]In the event this information is protected by the Federal Confidentiality of Alcohol and Drug Abuse Patient Records regulations: The Federal rules restrict any use of the information to criminally investigate or prosecute any alcohol or drug abuse patient.[facility] the event this information is protected by the Federal Confidentiality of Alcohol and Drug Abuse Patient Records regulations: The Federal rules restrict any use of the information to criminally investigate or prosecute any alcohol or drug abuse patient.[facility] the event this information is protected by the Federal Confidentiality of Alcohol and Drug Abuse Patient Records regulations: The Federal rules restrict any use of the information to criminally investigate or prosecute any alcohol or drug abuse patient.[facility]In the event this information is protected by the Federal Confidentiality of Alcohol and Drug Abuse Patient Records regulations: The Federal rules restrict any use of the information to criminally investigate or prosecute any alcohol or drug abuse patient.[facility]In the event this information is protected by the Federal Confidentiality of Alcohol and Drug Abuse Patient Records regulations: The Federal rules restrict any use of the information to criminally investigate or prosecute any alcohol or drug abuse patient.[facility]In the event this information is protected by the Federal Confidentiality of Alcohol and Drug Abuse Patient Records regulations: The Federal rules restrict any use of the information to criminally investigate or prosecute any alcohol or drug abuse patient.[facility]In the event this information is protected by the Federal Confidentiality of Alcohol and Drug Abuse Patient Records regulations: The Federal rules restrict any use of the information to criminally investigate or prosecute any alcohol or drug abuse patient.[facility]In the event this information is protected by the Federal Confidentiality of Alcohol and Drug Abuse Patient Records regulations: The Federal rules restrict any use of the information to criminally investigate or prosecute any alcohol or drug abuse patient.[facility]In the event this information is protected by the Federal Confidentiality of Alcohol and Drug Abuse Patient Records regulations: The Federal rules restrict any use of the information to criminally investigate or prosecute any alcohol or drug abuse patient.[facility]In the event this information is protected by the Federal Confidentiality of Alcohol and Drug Abuse Patient Records regulations: The Federal rules restrict any use of the information to criminally investigate or prosecute any alcohol or drug abuse patient.[facility]In the event this information is protected by the Federal Confidentiality of Alcohol and Drug Abuse Patient Records regulations: The Federal rules restrict any use of the information to criminally investigate or prosecute any alcohol or drug abuse patient.[facility] the event this information is protected by the Federal Confidentiality of Alcohol and Drug Abuse Patient Records regulations: The Federal rules restrict any use of the information to criminally investigate or prosecute any alcohol or drug abuse patient.[facility]In the event this information is protected by the Federal Confidentiality of Alcohol and Drug Abuse Patient Records regulations: The Federal rules restrict any use of the information to criminally investigate or prosecute any alcohol or drug abuse patient.[facility]In the event this information is protected by the Federal Confidentiality of Alcohol and Drug Abuse Patient Records regulations: The Federal rules restrict any use of the information to criminally investigate or prosecute any alcohol or drug abuse patient.[facility] the event this information is protected by the Federal Confidentiality of Alcohol and Drug Abuse Patient Records regulations: The Federal rules restrict any use of the information to criminally investigate or prosecute any alcohol or drug abuse patient.[facility]In the event this information is protected by the Federal Confidentiality of Alcohol and Drug Abuse Patient Records regulations: The Federal rules restrict any use of the information to criminally investigate or prosecute any alcohol or drug abuse patient.[facility] HospitalIn the event this information is protected by the Federal Confidentiality of Alcohol and Drug Abuse Patient Records regulations: The Federal rules restrict any use of the information to criminally investigate or prosecute any alcohol or drug abuse patient.[facility]In the event this information is protected by the Federal Confidentiality of Alcohol and Drug Abuse Patient Records regulations: The Federal rules restrict any use of the information to criminally investigate or prosecute any alcohol or drug abuse patient.[facility]In the event this information is protected by the Federal Confidentiality of Alcohol and Drug Abuse Patient Records regulations: The Federal rules restrict any use of the information to criminally investigate or prosecute any alcohol or drug abuse patient.[facility]In the event this information is protected by the Federal Confidentiality of Alcohol and Drug Abuse Patient Records regulations: The Federal rules restrict any use of the information to criminally investigate or prosecute any alcohol or drug abuse patient.[facility] HospitalIn the event this information is protected by the Federal Confidentiality of Alcohol and Drug Abuse Patient Records regulations: The Federal rules restrict any use of the information to criminally investigate or prosecute any alcohol or drug abuse patient.[facility] Reason for Visit (unrecogniz ed section and content) Reason Comments Imm/Inj Specialty Diagnoses / Procedures Referred By Contac t Referred To Contact Internal Medicine / FAMILY MEDICINE Diagnoses Age-related osteoporosis without current pathological fracture prolia Procedures DENOSUMAB INJECTION NURSE Wilbert Villarreal MD [address] [place] [address] Phone: tel: fax: [place] [address] [place] [id number] Phone: tel: Referral ID Status Reason Start Date Expiration Date V isits Requested Visits Authorized [id number] Authorized 09/24/2024 09/24/2025 99 99 Reason Onset Date Comments Refill Request 06/23/2021 Reason Onset Date Comments Population Health Navigation Outreach 07/02/2021 [employer] Care Gaps Reason Comments F/U 6 months Reason Comments Urinary Frequency x2 weeks Reason Comments Results Urine Cx negative Reason Comments express care follow up 8-4 hematuria Reason Comments Medicare Wellness Exam Reason Onset Date Comments Refill Request 07/07/2022 OUT OF MEDICATIO N Reason Comments Medicare Wellness Exam F/U 6 months Reason Comments Opened In Error Reason Onset Date Comments Refill Request 08/16/2023 Reason Comments Insurance Authorization Reason Comments Orders Reason Comments Medicare Wellness Exam F/U 6 months Reason Onset Date Comments Refill Request 07/19/2024 Reason Onset Date Comments Refill Request 09/05/2024 Reason Comments Medication Problem Insurance Authorization Care Teams (unrecognized sec tion and content) Parking Lot Chauffeur Relationship Specialty Start Date End Date Wilbert Villarreal MD [address] [place], [place] [id number] PCP - General Internal Medicine 02/03/18 Parking Lot Chauffeur Relationship Specialty Start Date End Date Wilbert Villarreal MD [address] [place] [address] PCP - General Internal Medicine 02/03/18 Parking Lot Chauffeur Relationship Specialty Start Date End Date Wilbert Villarreal MD [address] [facility] [place] [address] PCP - General Internal Medicine 02/03/18 Parking Lot Chauffeur Relationship Specialty Start Date End Date Wilbert Villarreal MD [address] [facility] [place] [address] PCP - General Internal Medicine 02/03/18 Parking Lot Chauffeur Relationship Specialty Start Date End Date Wilbert Villarreal MD [address] [facility] [place] [address] PCP - General Internal Medicine 02/03/18 Parking Lot Chauffeur Relationship Specialty Start Date End Date Wilbert Villarreal MD [facility] [place] [address] PCP - General Internal Medicine 02/03/18 Parking Lot Chauffeur Relationship Specialty Start Date End Date Wilbert Villarreal MD [address] [facility] [place] [address] PCP - General Internal Medicine 02/03/18 Parking Lot Chauffeur Relationship Specialty Start Date End Date Wilbert Villarreal MD [facility] [place] [address] PCP - General Internal Medicine 02/03/18 Parking Lot Chauffeur Relationship Specialty Start Date End Date Wilbert Villarreal MD [address] [facility] [place] [address] PCP - General Internal Medicine 02/03/18 Parking Lot Chauffeur Relationship Specialty Start Date End Date Wilbert Villarreal MD [facility] [place] [address] PCP - General Internal Medicine 02/03/18 Parking Lot Chauffeur Relationship Specialty Start Date End Date Wilbert Villarreal MD [address] [facility] [place] [address] PCP - General Internal Medicine 02/03/18 Parking Lot Chauffeur Relationship Specialty Start Date End Date Wilbert Villarreal MD [address] [facility] [place] [address] PCP - General Internal Medicine 02/03/18 Parking Lot Chauffeur Relationship Specialty Start Date End Date Wilbert Villarreal MD [address] [facility] [place] [address] PCP - General Internal Medicine 02/03/18 Parking Lot Chauffeur Relationship Specialty Start Date End Date Wilbert Villarreal MD [address] [facility] [place] [address] PCP - General Internal Medicine 02/03/18 Parking Lot Chauffeur Relationship Specialty Start Date End Date Wilbert Villarreal MD [address] [facility] [place] [address] PCP - General Internal Medicine 02/03/18 Parking Lot Chauffeur Relationship Specialty Start Date End Date Wilbert Villarreal MD [address] [facility] [place] [address] PCP - General Internal Medicine 02/03/18 Parking Lot Chauffeur Relationship Specialty Start Date End Date Wilbert Villarreal MD [address] [facility] [place] [address] PCP - General Internal Medicine 02/03/18 Parking Lot Chauffeur Relationship Specialty Start Date End Date Wilbert Villarreal MD [address] [facility] [place] [address] PCP - General Internal Medicine 02/03/18 Parking Lot Chauffeur Relationship Specialty Start Date End Date Wilbert Villarreal MD [address] [facility] [place] [address] PCP - General Internal Medicine 02/03/18 Parking Lot Chauffeur Relationship Specialty Start Date End Date Wilbert Villarreal MD [address] [facility] [place] [address] PCP - General Internal Medicine 02/03/18 Parking Lot Chauffeur Relationship Specialty Start Date End Date Wilbert Villarreal MD [address] [facility] [place] [address] PCP - General Internal Medicine 02/03/18 Parking Lot Chauffeur Relationship Specialty Start Date End Date Wilbert Villarreal MD [address] [facility] [place] [address] PCP - General Internal Medicine 02/03/18 Jasmyn Mcguire, CARDIOLOGY TECHNOLOGIST.HEPATOLOGIST [address] [facility] [place] [address] Library Cataloging Technician Internal Medicine 03/12/24 Parking Lot Chauffeur Relationship Specialty Start Date End Date Wilbert Villarreal MD [address] [facility] [place] [address] PCP - General Internal Medicine 02/03/18 Jasmyn Mcguire, CARDIOLOGY TECHNOLOGIST.HEPATOLOGIST [address] [facility] [place] [address] Library Cataloging Technician Internal Medicine 03/12/24 Team Status: Active Member Role Status Dates Dr. Wilbert Villarreal MD Primary Care Provider Active Team Status: Inactive Member Role Status Dates Dr. Wilbert Villarreal MD Primary Care Provider Active Start: August 21, 2024 End: August 21, 2024 Delano Duong MD Attending Provider Active St art: August 21, 2024 End: August 21, 2024 Delano Duong MD Referring Provider Active St art: August 21, 2024 End: August 21, 2024 Team Status: Inactive Member Role Status Dates Dr. Wilbert Villarreal MD Primary Care Provider Active Start: September 05, 2024 End: September 05, 2024 Dr. Wilbert Villarreal MD Referring Provider Active Start: September 05, 2024 End: September 05, 2024 Delano Duong MD Attending Provider Active St art: September 05, 2024 End: September 05, 2024 Parking Lot Chauffeur Relationship Specialty Start Date End Date Wilbert Villarreal MD [address] [place] [address] PCP - General Internal Medicine 02/03/18 Jasmyn Mcguire, CARDIOLOGY TECHNOLOGIST.HEPATOLOGIST [address] [place] [address] Library Cataloging Technician Internal Medicine 03/12/24 Parking Lot Chauffeur Relationship Specialty Start Date End Date Wilbert Villarreal MD [address] [place] [address] PCP - General Internal Medicine 02/03/18 Jasmyn Mcguire, CARDIOLOGY TECHNOLOGIST.HEPATOLOGIST [address] [place] [address] Library Cataloging Technician Internal Medicine 03/12/24 Parking Lot Chauffeur Relationship Specialty Start Date End Date Wilbert Villarreal MD [address] [place] [address] PCP - General Internal Medicine 02/03/18 Jasmyn Mcguire, CARDIOLOGY TECHNOLOGIST.HEPATOLOGIST [address] [place] [address] Library Cataloging Technician Internal Medicine 03/12/24 Parking Lot Chauffeur Relationship Specialty Start Date End Date Wilbert Villarreal MD [address] [place], [place] [id number] PCP - General Internal Medicine 02/03/18 Jasmyn Mcguire, VIOLETA.HEPATOLOGIST [address] [place], [place] [address] Library Cataloging Technician Internal Medicine 03/12/24 Goals (unrecognized section and content) Goals may be documented in a n alternate sectionGoals may be documented in an alternate sectionGoals may be documented in an alternate section INFORMATION SOURCE (unrecogn ized section and content) DATE CREATED AUTHOR 10/06/2024 [facility] DATE CREATED AUTHOR AUTHOR'S ORGANIZ ATION 12/18/2024 [facility] FOR RECORDS PERTAINING TO PATIENTS WHO ARE OR HAVE BEEN ENROLLED IN A CHEMICAL DEPENDENCY/SUBSTANCEABUSE PROGRAM, SOME INFORMATION MAY BE OMITTED. This clinical summary was aggregated from multiple sources. Caution should be exercised in using it in the provision of clinical care. This summary normalizes information from multiple sources, and as a consequence, information in this document may materially change the coding, format and clinical context of patient data. In addition, data may be omitted in some cases. CLINICAL DECISIONS SHOULD BE BASED ON THE PRIMARY CLINICAL RECORDS. [facility]. provides no warranty or guarantee of the accuracy or completeness of information in this document.
[2024-12-19] MEDS: Magnesium 1 GM over 15 mins IV (06:24)
[2024-12-19] MEDS: Scopolamine 1mg/72hr Patch 1 PATCH TD (06:25)
[2024-12-19] MEDS: Lactated Ringers 1,000 ML 15 ML IV (06:52)
--- NOTE | 2024-12-19 07:04 | PCM.HP.STD ---
HPI - General HPI Narrative MAYRA BROWN, is a 79 F who presents for left reverse total shoulder arthroplasty. no change to h and p. left shoulder marked. rab, post op instructions and narcotic counselling. ok to proceed. no further questions or concerns. MR#: [id number] Acct: [id number] Name: MAYRA BROWN Rep #: [id number] : 1945 Provider: Dr. Delano Duong MD Age/Sex: 79/F Location: [facility] [place] Status: Signed Intake Vital Signs 04/09/2508:10 09/05/2508:04 Height 5 ft 1 in 5 ft 1 in Weight: 165 lb BMI 31.1 Intake Visit Reasons: LEFT SHOULDER Chief Complaint: Physical therapy follow up Accompanied by: Self Is patient in pain?: Yes Pain scale (1-10): 4 Allergies Sulfa (Sulfonamide Antibiotics) Allergy (Verified 09/05/24 09:08) Unknown Medications ?Medication ?Instructions ?Recorded ?Confirmed ?Type biotin 10,000 mcg capsule 10,000 mcg PO DAILY 12/02/16 09/05/24 History calcium 600 mg (as 1 ea PO DAILY 12/02/16 09/05/24 History carbonate)-vitamin D3 5 mcg (200 unit) tablet cholecalciferol (vitamin D3) 125 5,000 unit PO DAILY 12/02/16 09/05/24 History mcg (5,000 unit) capsule amlodipine 5 mg tablet 5 mg PO QHS 05/06/23 09/05/24 History denosumab 60 mg/mL subcutaneous 60 mg subcut [id number] 05/06/23 09/05/24 History syringe (Prolia) folic acid 400 mcg tablet 800 mcg PO DAILY 05/06/23 09/05/24 History rosuvastatin 10 mg tablet 10 mg PO MOWEFR 05/06/23 09/05/24 History Have you fallen in the past year?: No PFSH Medical History Wears glasses Anxiety Osteoarthritis Arthritis High cholesterol Gastric reflux Hypertension Non-smoker Primary osteoarthritis, left shoulder Left shoulder pain Surgical History History of colonoscopy History of total replacement of right shoulder joint (~2016) Social History Smoking Status: Never smoker HPI LEFT SHOULDER Details: This documentation accurately reflects the service provided and the decisions made by me, Dr. Delano Duong MD 09/05/24 0840. Part of today?s visit was documented by [ ], acting as scribe. MAYRA BROWN is a 79 year old F here today for FU L shoulder OA. Did PT. still painful difficulty left quite a bit of crepitus with range of motion. Patient is quite healthy and active. Supplemental Info [facility] Imaging Services [address] [address] Extremity Upper without Contra MR#: [id number] Acct: [id number] Name: MAYRA RBOWN Rep #: [id number] : 1945 F 78 From: Pawan Flannery MD PCP: Dr. Wilbert Villarreal MD Status: REG CLI Study: Extremity Upper without Contra Date of Exam: 04/23/24 Exam# [id number] Ordering Dr: Delano Duong MD EXAM: CT LEFT UPPER EXTREMITY WITHOUT INTRAVENOUS CONTRAST, SHOULDER CLINICAL INDICATION: blueprint cuts for RTSA surgical planning, left shoulder TECHNIQUE: Helically acquired images were obtained of the left shoulder without intravenous contrast. 2-D reformats were performed by the technologist. CTDIvol = ( 22.91 ) mGy, DLP = ( 575.17 ) mGycm This CT exam was performed using one or more of the following dose reduction techniques: automated exposure control, adjustment of the mA and/or kV according to patient size, and/or use of iterative reconstruction technique. COMPARISON: No relevant prior studies available. FINDINGS: BONES/JOINTS: Larger glenohumeral joint effusion. Moderate to severe osteoarthritic changes with joint enlarged humeral head osteophyte projecting inferiorly. Mild to moderate degenerative changes of the acromioclavicular joint. No acute or healing fracture or malalignment. No suspicious lytic or sclerotic lesions of bone. SOFT TISSUES: Unremarkable. No soft tissue swelling or gas. No radiopaque foreign body. No other soft tissue masses. LUNG APICES: Visualized lungs clear. CT/Extremity Upper without Contra IMPRESSION: Preoperative planning study for shoulder arthroplasty showing moderate to severe osteoarthritic changes of the glenohumeral joint. Electronically Signed: Pawan Flannery MD at 12:15 EST Reading Location ID and State: [address] [place] [address] Tel , Service support , Coding Level of Care Code Off vis,est,level 4 Diagnoses Primary osteoarthritis, left shoulder M19.012 Left shoulder pain M25.512 Assessment and Plan Assessment and Plan (1) Primary osteoarthritis, left shoulder: Status: Acute Plan: MAYRA BROWN is a 79 year old F here today for FU L shoulder OA. Did PT. last visit we discussed doing an anatomic as she does have a well-functioning anatomic shoulder replacement on the other side that was done about 7 years ago now but I think more reliably the operation of choice here given the patient's age and some mild weakness despite intact rotator cuff tendon on the MRI would be a reverse total shoulder arthroplasty although there is pros and cons of each of these operations. The patient understands would like to go ahead with a left reverse total shoulder arthroplasty. Consented for the surgery today and she would like it done in the fall. Pros and cons risks and benefits were discussed with the patient including but not limited to infection, pain, stiffness, bleeding, damage to surrounding structures, neurovascular injury, recurrence or retear, failure or wear of hardware or fixation, instability, fracture, deep vein thrombosis and pulmonary embolism, anesthetic risks, , patient dissatisfaction, need for further surgery and other risks. Patient understood and wished to proceed with surgery, and signed the informed consent documentation. (2) Left shoulder pain: Status: Acute Clinical Quality Measures Falls Risk Screening/Assistive Devices Have you fallen in the past year?: No Ortho Exam General General: Yes no acute distress Neurologic: Yes alert and Yes oriented x3 Psychologic: Yes reasonable and appropriate Left Shoulder Skin/Wound: Yes CDI, No ecchymosis, No erythema and No swelling Testing: No Hawkin's, Yes Neer's, No Speed's, No TTP Biceps, No TTP AC Joint, Yes empty can and Yes belly press normal SHOULDER: normal motor and sens to axillary N, MRU and AIN/PIN. Hand warm well perfused normal radial pulse active and passive FE 80, ER 15. strength fe 4+ PFSH Medical History (Updated 12/05/24 @ 10:12 by Kristen Jeffries) Alcohol use Back pain Hx of fracture of wrist Wears glasses Anxiety Arthritis High cholesterol Gastric reflux Hypertension Non-smoker Primary osteoarthritis, left shoulder Left shoulder pain Home Medications ?Medication ?Instructions ?Recorded ?Last Taken ?Type biotin 10,000 mcg capsule 10,000 mcg PO DAILY 12/02/16 12/18/24 History calcium 600 mg (as 1 ea PO DAILY 12/02/16 12/18/24 History carbonate)-vitamin D3 5 mcg (200 unit) tablet amlodipine 5 mg tablet 5 mg PO QHS 05/06/23 12/18/24 18:08 History denosumab 60 mg/mL subcutaneous 60 mg subcut [id number] 05/06/23 Unknown History syringe (Prolia) folic acid 400 mcg tablet 800 mcg PO DAILY 05/06/23 12/18/24 History rosuvastatin 10 mg tablet 10 mg PO MOWEFR 05/06/23 12/18/24 18:00 History Allergy/AdvReac Type Severity Reaction Status Date / Time Sulfa (Sulfonamide Allergy Unknown Verified 12/19/24 06:09 Antibiotics) Surgical History (Updated 12/05/24 @ 10:12 by Kristen Jeffries) Hx of oral surgery Hx of left cataract extraction History of History of colonoscopy History of total replacement of right shoulder joint (~2016) Social History Smoking Status: Never smoker Vital Signs Vital Signs Vital Signs: 12/19/24 06:16 12/19/24 06:16 Temperature 97.8 F Temperature Source Temporal Pulse Rate 80 Respiratory Rate 16 Respiratory Pattern Normal Blood Pressure 156/74 H Blood Pressure Mean 101 Blood Pressure Source Monitor Blood Pressure Position Semi-Fowlers Blood Pressure Location Right Arm Pulse Ox 98 Oxygen Delivery Method Room Air Weight Weight: 163 lb 2.273 oz Body Mass Index (BMI) 30.8 Results Lab / Micro Data 12/06/24 10:55 12/06/24 10:55
--- NOTE | 2024-12-19 07:04 | PCM.PRE.AN2 ---
ASA Classification* ASA Classification ASA Classification: 2 Assessment & Plan Anesthesia* Anesthesia Assessment Anesthesia Assessment: Discussed sedation and/or anesthesia options, risks, benefits, and alternatives with patient/parents/legal guardian/POA. Questions invited. The patient/parents/legal guardian/POA seems to understand and agrees to proceed with anesthesia plan. Reviewed the physical assessment, medical history, allergy history and patient home medications list prior to surgery/procedure/anesthetic and documented any changes. Performed airway and anesthesia risk assessments. Anesthesia Type Anesthesia Type: General and Block History Source History Obtained from:: Patient and Chart Anesthesia Focused Assessment* Temperature: 97.8 F Pulse Rate: 80 Blood Pressure: 156/74 Respiratory Rate: 16 Pulse Ox: 98 Oxygen Delivery Method: Room Air Airway Assessment Mouth opens: >3 cm Mallampati Score: II Teeth Condition: Caps/Crowns Neck Range of motion (ROM): Limited ROM Labs Anesthesia Preop lab: CBC WBC, (4.4-11.0) 8.2 K/mm3 12/06/24, 10:55 RBC, (4.2-5.4) 4.65 M/mm3 12/06/24, 10:55 Hgb, (12.0-15.0) 14.2 g/dL 12/06/24, 10:55 Hct, (37-47) 42.6 % 12/06/24, 10:55 Plt Count, (150-450) 432 K/mm3 12/06/24, 10:55 CHEMISTRY Potassium, (3.3-5.1) 4.5 mmol/L 12/06/24, 10:55 Sodium, (133-145) 140 mmol/L 12/06/24, 10:55 Magnesium, (1.5-2.2) 2.5 mg/dL H 12/06/24, 10:55 BUN, (4-19) 13 mg/dL 12/06/24, 10:55 Creatinine, (0.70-1.20) 0.65 mg/dL L 12/06/24, 10:55 Glucose, (70-99) 94 mg/dL 12/06/24, 10:55 COAG PT, (11.7-14.9) 12.9 SECONDS 12/06/24, 10:55 Pre-Assessment Diagnosis/Proposed Procedure Planned Operative Procedure(s): LEFT REVERSE TOTAL SHOULDER ARTHROPLASTY Anesthesia History 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 When Was Last Pacemaker Check QUESTION #4 FULL TEXT: You/Your Family Experience fever (hyperthermia) with Anesthesia Last Oral Intake Last Oral intake: Last Oral Intake NPO since 02:00 12/19/24 06:16 Meds taken in AM with sips of No 12/19/24 06:16 water? Meds patient instructed to take am of surgery PONV PONV - manager plumbing: PONV - manager plumbing Female Yes 12/05/24 10:05 HX of Motion Sickness No 12/05/24 10:05 HX of N/V After Surgery No 12/05/24 10:05 Non-Smoker Yes 12/05/24 10:05 Duration of Surgery greater Yes 12/05/24 10:05 than 60 minutes Number of Risk Factors 3 12/05/24 10:05 PONV Score Moderate Risk 12/05/24 10:05 Height & Weight Height & Weight: Anesthesia: Height & Weight Height 5 ft 1 in 12/19/24 06:16 Weight: 74 kg 12/19/24 06:16 Body Mass Index (BMI) 30.8 12/19/24 06:16 Respiratory Assessment Respiratory Assessment - manager plumbing: Respiratory Tract Infection Hx - manager plumbing Hx Respiratory Tract Infection No 12/05/24 10:05 STOP Sleep Apnea STOP Sleep Apnea - manager plumbing: STOP Sleep Apnea - manager plumbing Hx Hypertension Yes: CONTROLLED WITH MED 12/05/24 10:05 Hx Sleep Apnea No 12/05/24 10:05 CPAP No 04/06/24 08:55 BIPAP Do you snore loudly (louder No 12/05/24 10:05 than talking or can be heard Do you often feel tired/ No 12/05/24 10:05 fatigued/ sleepy during daytime? Has anyone observed you stop No 12/05/24 10:05 breathing during sleep? STOP Results Negative 12/05/24 10:05 QUESTION #5 FULL TEXT : Do you snore loudly (louder than talking or can be heard through closed doors)? 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 Specify any problems Hx of Preganancy in last 3 No 12/05/24 10:05 Months Nurse Filling Out Transfusion DSCHRIBER 12/05/24 10:05 & Questions: Date: 12/05/24 12/05/24 10:05 Time: 10:07 12/05/24 10:05 Patient unable to answer at this time (ie. confused, unrespo /Reproduction History /Reproductive History - manager plumbing: /Reproductive Hx- manager plumbing Hx Now No 12/05/24 10:05 Gestational Age (in weeks): EDC: Hx Hx Para Hx Section SAB No 12/05/24 10:05 Active Medications Active Medications: Current Medications Generic Name Dose Route Start Last Admin Trade Name Freq PRN Reason Stop Dose Admin Acetaminophen 1,000 mg 12/19/24 07:30 12/19/24 06:26 Acetaminophen 500 Mg Tablet PO 12/19/24 07:31 1,000 mg PREOP ONE Administration Dexamethasone Sodium Phosphate 10 mg 12/19/24 07:30 Dexamethasone 10 Mg/Ml Vial IV 12/19/24 07:31 INTRAOP ONE Gabapentin 600 mg 12/19/24 07:30 12/19/24 06:25 Gabapentin 600 Mg Tablet PO 12/19/24 07:31 600 mg PREOP ONE Administration Cefazolin Sodium 2 gm/ Sodium 110 mls @ 150 mls/hr 12/19/24 07:30 Chloride IV 12/19/24 08:13 INTRAOP ONE Tranexamic Acid 1,000 mg/ 110 mls @ 660 mls/hr 12/19/24 07:30 Sodium Chloride IV 12/19/24 07:39 INTRAOP ONE Tranexamic Acid 1,000 mg/ 110 mls @ 660 mls/hr 12/19/24 08:30 Sodium Chloride IV 12/19/24 08:39 INTRAOP ONE Lactated Ringer's 1,000 mls @ 125 mls/hr 12/19/24 08:30 IV 12/19/24 16:29 .Q8H ERIC Magnesium Sulfate 1 gm/ 102 mls @ 408 mls/hr 12/19/24 07:30 12/19/24 06:24 Dextrose IV 12/19/24 07:44 408 mls/hr PREOP ONE Administration Lactated Ringer's 1,000 mls @ 15 mls/hr 12/19/24 07:00 12/19/24 06:52 IV 15 mls/hr .Q48H ERIC Administration Insulin Human Lispro 1 - 6 unit 12/19/24 07:30 Insulin Lispro 100 Unit/Ml Insuln.Pen SC 12/19/24 13:30 Q4H PRN PRN BG>/= 180, SEE PROTOCOL Protocol Scopolamine HBr 1 patch 12/19/24 07:30 12/19/24 06:25 Scopolamine 1mg/72hr Patch TD 12/19/24 07:31 1 mg PREOP ONE Administration PFSH Medical History Alcohol use Back pain Hx of fracture of wrist Wears glasses Anxiety Arthritis High cholesterol Gastric reflux Hypertension Non-smoker Primary osteoarthritis, left shoulder Left shoulder pain Home Medications ?Medication ?Instructions ?Recorded ?Last Taken ?Type biotin 10,000 mcg capsule 10,000 mcg PO DAILY 12/02/16 12/18/24 History calcium 600 mg (as 1 ea PO DAILY 12/02/16 12/18/24 History carbonate)-vitamin D3 5 mcg (200 unit) tablet amlodipine 5 mg tablet 5 mg PO QHS 05/06/23 12/18/24 18:08 History denosumab 60 mg/mL subcutaneous 60 mg subcut [id number] 05/06/23 Unknown History syringe (Prolia) folic acid 400 mcg tablet 800 mcg PO DAILY 05/06/23 12/18/24 History rosuvastatin 10 mg tablet 10 mg PO MOWEFR 05/06/23 12/18/24 18:00 History Allergy/AdvReac Type Severity Reaction Status Date / Time Sulfa (Sulfonamide Allergy Unknown Verified 12/19/24 06:09 Antibiotics) Surgical History Hx of oral surgery Hx of left cataract extraction History of History of colonoscopy History of total replacement of right shoulder joint (~2017) Social History Smoking Status: Never smoker Review of Systems (Anesthesia) ROS Narrative System reviewed and no additional complaints, except as documented.
[2024-12-19] MEDS: Midazolam 2 MG/2 ML Syringe IV (07:13)
[2024-12-19] MEDS: Cefazolin 1 GM/5 ML Vial 2 GM IV (07:24)
[2024-12-19] MEDS: Lidocaine 1% (5 ml sdv) 5 ML Vial 3 ML IV (07:32)
[2024-12-19] MEDS: Vancomycin IV 1,000 MG/20 ML Vial 1000 MG OPERA.SITE (09:06)
--- NOTE | 2024-12-19 09:10 | RAD_ITS ---
PROCEDURE: SHOULDER MIN 2 VIEWS 12/19/2024 REASON FOR EXAM: ERAS, LEFT REVERSE TOTAL SHOULDER ARTHROPLASTY TECHNIQUE: Procedure Code: RAD Modality: DX Procedure: SHOULDER MIN 2 VIEWS Laterality: COMPARISON: 05/06/2023. FINDINGS: Intraoperative fluoroscopy of the left shoulder was performed. 3 images. 4.4 seconds of fluoroscopic time. 0.49 mGy. See procedure report for full details. RAD/Shoulder min 2 Views IMPRESSION: As above. Reading Location: [id number]
[2024-12-19] MEDS: TRANEXAMIC ACID 1,000 MG/10 ML ML 2000 MG IV (09:20)
--- NOTE | 2024-12-19 09:38 | DCINST_ITS ---
Discharge Instructions Diet Discharge Diet: No restrictions Activity Ice area for (Minutes): 10 Lifting Restrictions: pendulums 4x/day, ok for gentle hand wrist elbow ROM Additional Activity Instructions:: no lifting over 1 pound, ok to remove sling at rest, do not reach behind back Dressing / Incision Call your doctor if your incision/area has: Continuous Slow Oozing, Sudden I ncreased Bleeding, Increased Pain/ Swelling, Increased Redness, Foul Smelling Discharge and Swelling at the incision site Call your doctor if you observe: Fever of 101 or Higher, Coldness, Increased Pain and Numbness or Tingling Remove Dressing in: leave in place till F/U Cleanse incision/area with: Do not get Incision Wet Additional Dressing/Incision Instructions:: ok to shower, try not to get incision wet Follow Up Care Please Follow Up With: Delano Duong MD When: within 2 weeks Test Results: Test results from this visit will be discussed in further detail at your follow- up appointment, if applicable. Discharge Plan Admission Attending Provider: Delano Duong Primary Care Provider: Wilbert Villarreal Instructions Patient Instructions: Shoulder Replacement Surg Recovery Print Language: Lithuanian Discharge Orders/Prescriptions Prescriptions: New oxycodone-acetaminophen [Percocet] 5-325 mg tablet 1 tab PO Q6H MDD 6 PRN (Reason: post op) 5 Days Qty: 20 0RF cephalexin 500 mg capsule 500 mg PO Q6H MDD 4 1 Days Qty: 4 0RF No Action amlodipine 5 mg tablet 5 mg PO QHS Patient Comments: TAKE 1 TABLET BY MOUTH ONCE DAILY rosuvastatin 10 mg tablet 10 mg PO MOWEFR Patient Comments: TAKE 1 TABLET BY MOUTH 3 times a week Prolia 60 mg/mL syringe 60 mg subcut [id number] calcium carbonate-vitamin D3 1 EACH tablet 1 ea PO DAILY Patient Comments: SUPPLEMENT biotin 10,000 MCG capsule 10,000 mcg PO DAILY Patient Comments: SUPPLEMENT folic acid 400 mcg tablet 800 mcg PO DAILY Patient Comments: SUPPLEMENT Referrals / Follow Up: Delano Duong MD [Med Staff - Active Staff, Orthopedics] Wilbert Villarreal MD [Primary Care Provider, Internal Medicine] Disposition Disposition (needs filled in before D/C Order can be placed): Home, Self Care
--- NOTE | 2024-12-19 09:44 | PCM.OPRPT ---
Procedures Musculoskeletal 20xxx-29xxx: Other Procedure See Report Operative Report (Standard) Operative Information Date of Procedure: 12/19/24 Pre-Operative Diagnosis: L shoulder OA Post-Operative Diagnosis: same Surgery/Procedure Performed: L RTSA and biceps tenodesis tandem mill sticker: Yes Sales Operations Associate: denton Tasks completed by assistant chief of police: Retracting Additional assistant chief of police?: No Type of Anesthesia: Block,Regional and General RN Documented Start/Stop Times: Operation Date: 12/19/24 07:30 Case Time Into Pre-Op 12/19/24 05:48 Anesthesia Start 12/19/24 07:24 Into Room 12/19/24 07:24 Procedure Start 12/19/24 07:54 Procedure End 12/19/24 09:35 Anesthesia End 12/19/24 09:44 Out of Room 12/19/24 09:44 Procedure Start Time: 07:54 Procedure Stop Time: 09:35 Select all DRAINS/GRAFTS/IMPLANTS that apply: Prosthetic device Prosthetic device details: josénigurinder perform reverse total shoulder arthroplasty Estimated Blood Loss: 100 Specimen collected: No Description of surgery: Patient brought the operating room theater. Administered general anesthetic. Placed on the beachchair positioner. Sat up 50 degree angle. All bony prominences padded. Arm positioner to the patient's left side SCDs on the legs all bony prominences padded upper extremity prepped and draped in the usual sterile fashion with chlorhexidine-based prep solution allowing over 3 minutes drying time prior to draping. Preoperative timeout performed to confirm the site patient surgery 2 g IV Ancef administered prior to the start of the case as well as 1 g of IV tranexamic at the start and at the end of the case. Used a deltopectoral incision carried the dissection down through skin and subcutaneous tissue achieved meticulous hemostasis. Protected the cephalic vein retracted out laterally. Identified the interval. Identified the lateral aspect of the conjoined tendon incised on that retracted it medially. Develop the plane. Identified the circumflex humeral vessels protected those, controlled them. Performed lesser tuberosity osteotomy as well as excised the anterior capsule and develop the plane between the subscapularis and the anterior glenoid. Protected axillary nerve by direct palpation. Placed #2 FiberWire sutures in the subscapularis. Excised the biceps tendon and followed this through the interval. I attached and performed a biceps tenodesis with the upper long head of the biceps to the superior border of the pectoralis major tendon insertion which I also released slightly. I developed the plane along the inferior aspect of the humeral metaphyseal area as well as removing a number of large osteophytes from this area. I made my head cut at 30 degrees of retroversion and I used the extramedullary guide. I remove the head. I had to excise a small amount of the anterior leading edge of the supraspinatus tendon to get the proximal humerus to drop down appropriately. I then turned my attention to the glenoid. I placed the pin center center, slightly inferior. I passed the guidepin aiming slightly superior and anteriorly. I used the central reamer, then drill for central screw. Plan for 25mm baseplate, +3mm. I then drilled for the center screw up to a size 25 mm long. The baseplate was then assembled. I fully seated and screwed the central screw measuring 25 mm long. I then drilled for the peripheral screws using 3.2 mm drill bit and then passed 4 locking screws, with superior screw locking at 12 oclock. I then pulse lavage the baseplate followed by impacting of the 36 mm glenosphere and sequential tightening of the central screw going back and forth until fully tight. I sequentially broached and used the reverse reamer up to a size 2 humerus, I trialed with this and a fully retentive polyethylene which was fully stable no levering no impingement in full forward elevation external rotation internal rotation and adduction. I took out the trial components used pulse lavage again. I drilled for planned lesser tuberosity osteotomy repair passed the sutures into the canal and then out to create a loop to use the stem to fixate against. I then inserted the stem the Tornier perform reverse stem size 2 long with the +0 retentive polyethylene insert for the 36 mm glenosphere. This was impacted into place the shoulder reduced and then the lesser osteotomy osteotomy sutures were repaired. Again trialed and found to be stable x-rays taken with trialing as well as with final components in place. Wound sterilely irrigated subcutaneous tissue closed with 2-0 Vicryl suture and 3-0 Monocryl. Skin cleaned with wet dry dressing followed application of Steri-Strips and silver Mepilex border dressing with a sling abduction pillow sling for the upper extremity. Patient woken up from general anesthetic transferred off the operating table taken postanesthetic care unit in stable condition. All sponge needle instrument counts were correct no complications plan for the patient gentle pendulum exercises and may be discharged home if they are comfortable otherwise stay 1 night overnight. cpt 97130, [address]207 Surgical Findings: as above Complications Complications: No Admit VTE Documentation VTE Present on Admission: No VTE Mechan Device Prophylaxis: SCD's VTE Pharm Prophylaxis ordered?: No Reason prophylaxis not ordered: Treatment Not Indicated
--- NOTE | 2024-12-19 09:48 | PCM.POST.ANE ---
Anesthesia: Postop Eval I Current Vital Signs Temperature: 97 F Pulse Rate: 69 Blood Pressure: 139/70 Respiratory Rate: 16 Pulse Ox: 95 Assessment Airway patent: Yes Spontaneous unlabored respirations: Yes nausea: No Vomiting: No Anesthesia Complication: No Fluid Hydration Crystalloid volume administer (ml): 700 Total IV fluid infused: 700 Progress Note Anesthesia document: Postop Eval 1 completed: Yes
--- NOTE | 2024-12-19 12:35 | POSTOPAN2_ITS ---
Anesthesia Postop Eval I Sum Postop Eval Completion status Anesthesia document: Postop Eval 1 completed: Yes Anesthesia Postop Eval I Summary Anesthesia Postop Eval I Summary: Anesthesia Postop Eval I: Assessment Summary Airway patent Yes 12/19/24 09:48 [email or web address] Spontaneous unlabored Yes 12/19/24 09:48 [email or web address] respirations Mental status nausea No 12/19/24 09:48 [email or web address] [email or web address] Vomiting No 12/19/24 09:48 [email or web address] Anesthesia Postop Eval I: Fluid Summary Crystalloid volume administer 700 12/19/24 09:48 [email or web address] (ml) Colloids volume administered ( ml) Blood Product volume administered (ml) Total IV fluid infused 700 12/19/24 09:48 [email or web address] Anesthesia Postop Eval I: Summary Notes Anesthesia Complication No 12/19/24 09:48 [email or web address] Anesthesia Complication Comment: Post-operative progress note Anesthesia: Postop Eval II Evaluation Mental status: Awake and Calm Pain Level: 1 nausea: No Vomiting: No Complications Anesthesia Complication: No
--- NOTE | 2024-12-19 12:35 | PCM.POSTANE2 ---
Anesthesia Postop Eval I Sum Postop Eval Completion status Anesthesia document: Postop Eval 1 completed: Yes Anesthesia Postop Eval I Summary Anesthesia Postop Eval I Summary: Anesthesia Postop Eval I: Assessment Summary Airway patent Yes 12/19/24 09:48 [email or web address] [email or web address] Spontaneous unlabored Yes 12/19/24 09:48 [email or web address] [email or web address] respirations Mental status nausea No 12/19/24 09:48 [email or web address] [email or web address] [email or web address] Vomiting No 12/19/24 09:48 [email or web address] [email or web address] Anesthesia Postop Eval I: Fluid Summary Crystalloid volume administer 700 12/19/24 09:48 [email or web address] [email or web address] [email or web address] (ml) Colloids volume administered ( ml) Blood Product volume administered (ml) Total IV fluid infused 700 12/19/24 09:48 [email or web address] [email or web address] Anesthesia Postop Eval I: Summary Notes Anesthesia Complication No 12/19/24 09:48 [email or web address] [email or web address] Anesthesia Complication Comment: Post-operative progress note Anesthesia: Postop Eval II Evaluation Mental status: Awake and Calm Pain Level: 1 nausea: No Vomiting: No Complications Anesthesia Complication: No
== END 2024-12-19 12:10 | disposition home or self-care (01) ==
LOC: SDC 05:34 → AC 05:39
PROVIDERS: Student in an Organized Health Care Education/Training Program; PCP Internal Medicine; Referring Provider Orthopaedic Surgery Sports Medicine; Visit Provider Orthopaedic Surgery Sports Medicine
PROC: (CPT 23472; principal; 2024-12-19 07:00)
DX: M19.012 Primary osteoarthritis, left shoulder (principal); E78.00 Pure hypercholesterolemia, unspecified; I10 Essential (primary) hypertension; K21.9 Gastro-esophageal reflux disease without esophagitis; Z79.899 Other long term (current) drug therapy
CPT/HCPCS: 23472; 23430; 64415; 36415; 73030; 76000; 80048; 82962; 82985; 83036; 83735; 85025; 85610; 85730; 86850; 86870; 86900; 86901; 87081; 93005; C1776; J2405; J3475